=== PATIENT | male | born 1950 | race Caucasian/White ===

== ENCOUNTER → 2016-07-10 | Outpatient (CLI) | payer MEDICARE, OTHER ==
[~2016-07-10] MED LIST: AMBI10TA PO; BENI20TA26 PO; BENI40TA31 PO; BETH25TA PO; CELE200C PO; LORA1TAB PO; LORT5TAB PO; NEXI40CA PO; SUBO8MIS SL; SULF1TAB47 PO
[2016-07-10 11:14] LABS: HEMATOCRIT 53.4 % (39.0-51.0); MEAN CELL VOLUME 89.8 FL (80.0-100.0); MEAN CORPUSCULAR HEMOGLOBIN 29.8 PG (27.0-34.0); MEAN CORPUSCULAR HGB CONC 33.2 % (32.0-36.0); PLATELET COUNT 192 TH/MM3 (150-450); RED BLOOD COUNT 5.94 MIL/MM3 (4.50-5.90); RED CELL DISTRIBUTION WIDTH 11.7 % (11.6-17.2); REVIEW FLAG FINAL
== END ==
LOC: OLAB 10:47
PROVIDERS: ATTEND Urology
DX: E29.1 Testicular hypofunction (principal)
CPT/HCPCS: 36415; 84153; 84403; 85027

== ENCOUNTER → 2016-12-27 | Outpatient (CLI) | payer MEDICARE, OTHER ==
[2016-12-27 10:06] LABS: HEMATOCRIT 44.2 % (39.0-51.0); MEAN CELL VOLUME 90.3 FL (80.0-100.0); MEAN CORPUSCULAR HEMOGLOBIN 30.4 PG (27.0-34.0); MEAN CORPUSCULAR HGB CONC 33.7 % (32.0-36.0); PLATELET COUNT 196 TH/MM3 (150-450); RED CELL DISTRIBUTION WIDTH 11.8 % (11.6-17.2); REVIEW FLAG FINAL; WHITE BLOOD COUNT 5.8 TH/MM3 (4.0-11.0)
== END ==
LOC: OLAB 09:54 → EDSTATUS 13:31 → OLAB 13:34
PROVIDERS: ATTEND Urology
DX: E29.1 Testicular hypofunction (principal); Z12.5 Encounter for screening for malignant neoplasm of prostate
CPT/HCPCS: 36415; 84153; 84403; 85027

== ENCOUNTER → 2017-03-12 | Outpatient (CLI) | payer SELFPAY ==
[~2017-03-12] MED LIST changes: +ALEV220T14 PO; +BACT800T5 PO; +BENI20TA3 PO; +BETH25TA2 PO; +DOXE25CA2 PO; +HYDR-3516 PO; +LORA1TAB12 PO; +SUBO2MIS SL; +TYLE325T PO
[2017-03-12 15:05] LABS: AUTOMATED NEUTROPHIL # 5.1 TH/MM3 (1.8-7.7); BASOPHIL % 0.4 % (0.0-2.0); EOSINOPHIL # 0.2 TH/MM3 (0-0.4); EOSINOPHIL % 2.2 % (0.0-4.0); HEMATOCRIT 49.8 % (39.0-51.0); HEMO FLAGS DIFF FINAL; LYMPH % 31.1 % (9.0-44.0); LYMPHOCYTE # 2.7 TH/MM3 (1.0-4.8); MEAN CELL VOLUME 91.1 FL (80.0-100.0); MEAN CORPUSCULAR HEMOGLOBIN 30.4 PG (27.0-34.0); MEAN CORPUSCULAR HGB CONC 33.3 % (32.0-36.0); MONO % 8.4 % (0.0-8.0); NEUT % 57.9 % (16.0-70.0); PLATELET COUNT 238 TH/MM3 (150-450); RED BLOOD COUNT 5.47 MIL/MM3 (4.50-5.90); RED CELL DISTRIBUTION WIDTH 12.1 % (11.6-17.2); WHITE BLOOD COUNT 8.7 TH/MM3 (4.0-11.0)
== END ==
LOC: PHPRE 14:17
PROVIDERS: ATTEND Pain Medicine Interventional Pain Medicine
DX: Z01.812 Encounter for preprocedural laboratory examination (principal); Z96.89 Presence of other specified functional implants
CPT/HCPCS: 36415; 84132; 85025

== ENCOUNTER → 2017-03-28 | Day surgery (SDC) | payer MEDICARE, OTHER ==
[~2017-03-28] VITALS: Ht 172.7 cm; Wt 98.0 kg
[~2017-03-28] MED LIST changes: -BENI20TA26 PO; -BENI40TA31 PO; -BETH25TA PO; +BUPIVACAINE/EPINEPHRINE 0.25% PF 30 ML VIAL ONE; +BUPIVACAINE/EPINEPHRINE 0.5% PF 10 ML VIAL ONE; +CHLORHEXIDINE GLUCONATE 2 % 1 PACK (2 CLOTHS) TOPICAL PRN; +INSULIN HUMAN REGULAR 1,000 UNITS/10 ML VIAL SQ PRN; +LACTATED RINGER'S 1000 ML IV PRN; -LORA1TAB PO; -LORT5TAB PO; +METOPROLOL TARTRATE 25 MG TAB PO PRN; +MIDAZOLAM HCL 2 MG/2 ML VIAL ONE; +POVIDONE IODINE 5% (ANTISEPSIS KIT) 4 APPLICATIONS EACH NARE PRN; +PROPOFOL 200 MG/20 ML AMP IV ONE; +SODIUM CHLORID 0.9% 500 ML IV PRN; +SODIUM CHLORIDE 0.9% INJ 100 ML ONE; +SODIUM CHLORIDE 0.9% INJ 50 ML ONE; -SUBO8MIS SL; -SULF1TAB47 PO; +VANCOMYCIN 500 MG VIAL ONE; +VANCOMYCIN HCL 500 MG ON-CALL/NS 100 ML IV SCH; +ceFAZolin 1,000 MG/NS 100 ML IV SCH; +ceFAZolin INJ 1,000 MG VIAL ONE
[2017-03-28] MEDS: BUPIVACAINE HCL PF 0.25% 30 ML VIAL ONE ×2 (10:59→12:04)
--- NOTE | 2017-03-28 13:21 | MP ---
cc: HARISH VITAL M.D. DATE OF SURGERY 03/28/2017 DATE OF 1950 PROCEDURE Replacement of pulse generator for spinal cord stimulation. PREPROCEDURE DIAGNOSIS End of battery life for pulse generator. POSTPROCEDURE DIAGNOSIS End of battery life for pulse generator. PROCEDURE NOTE IV was started in the holding area. The patient was given IV antibiotics. Consent form was signed. The surgical site was marked. The patient was taken to the operating room, placed in the prone position. All pressure points were checked and padded. He was sedated by Anesthesia and monitored. His right low back and buttocks area was prepped with Chloraprep and draped with sterile drapes. Then the skin over the implanted pulse generator was infiltrated with 0.5% Marcaine containing epinephrine. An incision was made at the pulse generator was exteriorized using sharp and blunt dissection. Then that the pulse generator was disconnected from the stimulating electrodes by loosening Tom screws. Then a new Rysto dual channel rechargeable pulse generator was connected to the stimulating electrodes. Impedance was checked at the bedside and found to be appropriate in all of the electrodes. Then the incision was irrigated with antibiotic solution and the pulse generator was placed back in the subcutaneous pocket and closure took place with 2-0 Ethibond in the deep tissue, 3-0 Monocryl in the subcuticular tissue and 3-0 nylon on the skin. The incisions were covered with sterile adhesive dressings and the patient was taken to the recovery room with stable vital signs, neurologically intact. W. MD JILLIAN Donahue/LIBRA /12:43 PM /1:10 PM
[2017-03-28 13:35] VITALS: BP 105/71; PULSE 64; RESP 15; TEMP 98; O2SAT 96
== END | disposition home or self-care (01) ==
LOC: PHSDC 10:28
PROVIDERS: ATTEND Pain Medicine Interventional Pain Medicine
DX: M96.1 Postlaminectomy syndrome, not elsewhere classified (principal); I10 Essential (primary) hypertension; J44.9 Chronic obstructive pulmonary disease, unspecified; Z98.1 Arthrodesis status
CPT/HCPCS: 00300; 63685; C1767; J0690; J2250; J3010; J3370; J7120

== ENCOUNTER 2017-06-06 06:57 | Day surgery (SDC) | payer MEDICARE, OTHER ==
[~2017-06-06] VITALS: Ht 172.7 cm; Wt 100.0 kg
[~2017-06-06 06:57] MED LIST changes: -AMBI10TA PO; -BUPIVACAINE/EPINEPHRINE 0.25% PF 30 ML VIAL ONE; -BUPIVACAINE/EPINEPHRINE 0.5% PF 10 ML VIAL ONE; -CHLORHEXIDINE GLUCONATE 2 % 1 PACK (2 CLOTHS) TOPICAL PRN; -HYDR-3516 PO; -INSULIN HUMAN REGULAR 1,000 UNITS/10 ML VIAL SQ PRN; -LACTATED RINGER'S 1000 ML IV PRN; -LORA1TAB12 PO; -METOPROLOL TARTRATE 25 MG TAB PO PRN; -MIDAZOLAM HCL 2 MG/2 ML VIAL ONE; -POVIDONE IODINE 5% (ANTISEPSIS KIT) 4 APPLICATIONS EACH NARE PRN; -PROPOFOL 200 MG/20 ML AMP IV ONE; -SODIUM CHLORID 0.9% 500 ML IV PRN; -SODIUM CHLORIDE 0.9% INJ 100 ML ONE; -SODIUM CHLORIDE 0.9% INJ 50 ML ONE; -SUBO2MIS SL; -VANCOMYCIN 500 MG VIAL ONE; -VANCOMYCIN HCL 500 MG ON-CALL/NS 100 ML IV SCH; +WALKER WHEELS/F1 MIS; -ceFAZolin 1,000 MG/NS 100 ML IV SCH; -ceFAZolin INJ 1,000 MG VIAL ONE
[2017-06-06 07:10] VITALS: BP 126/84; PULSE 71; RESP 20; TEMP 97.7; O2SAT 91
[2017-06-06] MEDS ORDERED: IRBE150T17 (07:27)
[2017-06-06] MEDS ORDERED: LACTATED RINGER'S 1000 ML INJ 1,000 ML IV SCH (07:30)
[2017-06-06] MEDS ORDERED: DIAZEPAM 5 MG TAB PO SCH (07:30)
[2017-06-06] MEDS ORDERED: ALFU10TA2 PO (07:31)
[2017-06-06] MEDS ORDERED: BUTR20DI T-DERMAL (07:31)
[2017-06-06] MEDS ORDERED: FURO20TA PO (07:31)
[2017-06-06] MEDS ORDERED: PHEN37.54 PO (07:31)
[2017-06-06] MEDS ORDERED: SPIR25TA PO (07:31)
[2017-06-06 08:06] LABS: AUTOMATED NEUTROPHIL # 4.7 TH/MM3 (1.8-7.7); BASOPHIL # 0.1 TH/MM3 (0-0.2); BASOPHIL % 0.6 % (0.0-2.0); EOSINOPHIL # 0.2 TH/MM3 (0-0.4); EOSINOPHIL % 2.6 % (0.0-4.0); HEMATOCRIT 49.2 % (39.0-51.0); HEMO FLAGS DIFF FINAL; LYMPHOCYTE # 2.8 TH/MM3 (1.0-4.8); MEAN CELL VOLUME 90.4 FL (80.0-100.0); MEAN CORPUSCULAR HEMOGLOBIN 30.9 PG (27.0-34.0); MEAN CORPUSCULAR HGB CONC 34.2 % (32.0-36.0); MONO % 8.6 % (0.0-8.0); NEUT % 55.2 % (16.0-70.0); PLATELET COUNT 217 TH/MM3 (150-450); RED BLOOD COUNT 5.44 MIL/MM3 (4.50-5.90); RED CELL DISTRIBUTION WIDTH 12.4 % (11.6-17.2); WHITE BLOOD COUNT 8.6 TH/MM3 (4.0-11.0)
[2017-06-06 08:16] LABS: APTT (PATIENT) 27.7 SEC (24.3-30.1); PROTHROMBIN TIME - PATIENT 11.6 SEC (9.8-11.6)
[2017-06-06 08:21] LABS: BICARBONATE 28.2 MEQ/L (21.0-32.0); POTASSIUM 3.8 MEQ/L (3.5-5.1)
--- NOTE | 2017-06-06 10:20 | PD.RAD ---
Post Procedure Progress Note Pre Procedure Diagnosis: (1) Radicular pain of left lower extremity Post Procedure Diagnosis: (1) Radicular pain of left lower extremity Procedure Date: Jun 06, 2017 Supervising Radiologist: Nikita Leslie Estimated blood loss: None Anesthesia: Local Plan of Activity Patient to Unit: [facility] Patient Condition: Good Additional Comments: LP completed without difficulty. CT pending. Full report pending. See PACS Report for procedural detail/treatment Nikita Leslie MD Jun 06, 2017 10:20
[2017-06-06 11:35] VITALS: BP 103/68; PULSE 60; RESP 20; TEMP 97.8; O2SAT 93
--- NOTE | 2017-06-06 13:26 | RADRPT ---
EXAM DATE/TIME: 06/06/2017 11:09 [facility] COMPARISON: CT LUMBAR SPINE W/O CONTRAST, June 06, 2017, 11:24. INDICATIONS : Patient presents with spondylosis in need of lumbar myelogram for further evaluation. MEDICAL HISTORY : Spondylosis COPD CHF HTN GERD Osteoarthritis Bilat PE hx Low chronic back pain w/ radiating left hip pain Skin cancer SURGICAL HISTORY : Katalina Hernia repair Lumbar fusion Joint replacement Cervical fusion Retroperitoneal abscess ENCOUNTER: Initial ACUITY: 1 month PAIN SCORE: 8/10 LOCATION: Lower back pain with radiating left leg pain and numbness. LUMBAR PUNCTURE TIME: 10:03 hours FLUORO TIME: 1.0 minutes IMAGE SERIES: 0 CONTRAST: 20 cc Omnipaque (iohexol) 180 ACCESS LEVEL: L2-3 PROCEDURE : 1. Fluoroscopic guided lumbar puncture. 2. Lumbar myelogram. The risks, benefits and alternatives to the procedure were explained and verbal and written consent w as obtained. The site was prepped in sterile fashion. Full sterile technique was used, including ca p, mask, sterile gloves and gown and a large sterile sheet. Hand hygiene and 2% chlorhexidine and/or betadine/alcohol prep was utilized per protocol for cutaneous antisepsis. The skin and subcutaneous tissues were infiltrated with local anesthetic solution. With fluoroscopic guidance the lumbar thecal sac was punctured at level above and a diagnostic quanti ty of contrast is present in the subarachnoid space. Radiographs were obtained of the lumbar spine. T hese demonstrate significant narrowing of the thecal sac at the C3/4 level. The patient tolerated procedure well and there were no complications. CT scan is to be performed for further evaluation. CONCLUSION: Uncomplicated lumbar myelogram as above. CT scan is to be performed for further evaluation. Nikita Leslie MD on June 06, 2017 at 13:23 Board Certified Radiologist. This report was verified electronically.
--- NOTE | 2017-06-06 16:00 | RADRPT ---
EXAM DATE/TIME: 06/06/2017 11:24 [facility] COMPARISON: No previous studies available for comparison. INDICATIONS : Post myelo, stenosis RADIATION DOSE: 39.12 CTDIvol (mGy) MEDICAL HISTORY : Cardiovascular disease. Hypertension. Chronic obstructive pulmonary disease. SURGICAL HISTORY : Cholecystectomy. ENCOUNTER: Initial ACUITY: 1 day PAIN SCALE: 3/10 LOCATION: lumbar TECHNIQUE: Volumetric scanning of the lumbar spine was performed. Multiplanar reconstructions in the sagittal, coronal and oblique axial planes were performed. Using automated exposure control and adjustment of the mA and/or kV according to patient size, radiation dose was kept as low as reasonably achievable t o obtain optimal diagnostic quality images. DICOM format image data is available electronically for review and comparison. FINDINGS: VERTEBRAE: There is bilateral posterior fixation involving L4-L5 with intervening bone graft. Multiple scattered Schmorl's nodes throughout the lumbar spine. Sclerotic changes are linear in nature paralleling the L2 inferior endplate as well as the superior and inferior endplate of L3 and superior endplate of L4. Vertebral body heights are maintained. Anterior osteophytes are noted. A stimulator device is observ ed with the leads entering the central canal at T12-L1 and coursing cephalad. ALIGNMENT: There is a scoliotic curvature with concavity towards the patient's left centered at L2-L3. A mild re trolisthesis of L3 on L4. T12-L1: The thecal sac has a normal diameter. No evidence of disc bulge or protrusion. Mild ligamentum flavu m hypertrophy and bony hypertrophy of the facets. The neural foramina are patent bilaterally. L1-L2: The thecal sac has a normal diameter. No evidence of disc bulge or protrusion. Mild ligamentum flavu m hypertrophy and bony hypertrophy of the facets. The neural foramina are patent bilaterally. L2-L3: There is disc space narrowing with vacuum disc phenomena and broad-based disc osteophyte complex. The re is a left lateral bridging osteophyte. The posterior component of the disc bulge is eccentric to t he left. This narrows the left neural foramina without impingement. Right neural foramen is patent. M oderate ligament flavum hypertrophy and moderate bony hypertrophy of the facets. Mild narrowing of th e central canal which measures 8 mm in anterior to posterior dimension in contrast to 11 mm in the mo re cephalad level. L3-L4: There is disc space narrowing with vacuum disc phenomena and broad-based disc osteophyte complex. Thi s in combination with the facet arthropathy changes and retrolisthesis generate significant central c anal stenosis. There is essentially no contrast opacified channel within the intrathecal space. Bilat eral neural foraminal narrowing most pronounced on the left. L4-L5: Posterior fixation and fusion at this level. Right hemilaminectomy changes. The central canal is munson nt. Neural foramina are patent. L5-S1: There is disc space narrowing and vacuum disc phenomena. There is a broad-based disc osteophyte compl ex eccentric to the right.. This in combination with prominent bony hypertrophy and moderate ligament flavum hypertrophy of the facets totally effaces the right lateral recess. Left lateral recess is pa tent. There is narrowing of the central canal in a medial to lateral dimension. This is moderate in n ature. There is narrowing of the right neural foramen and to a lesser degree left neural foramen. CONCLUSION: 1. Posterior fixation and laminectomy at L4-L5. The central canal is patent at this level. 2. Severe central canal stenosis at L3-L4 delay combination of a retrolisthesis, disc osteophyte comp nallely, and facet arthropathy changes. 3. Degenerative changes at L5-S1 causing mild central canal stenosis as well as total effacement of t he right lateral recess. Erich Ortiz Jr., MD on June 06, 2017 at 15:45 Board Certified Radiologist. This report was verified electronically.
[2017-06-10] MEDS ORDERED: DULO1CAP2 PO (14:01)
[2017-06-10] MEDS ORDERED: CYCL10TA PO (14:58)
[2017-06-10] MEDS ORDERED: HYDR-3366 PO (14:58)
== END 2017-06-06 14:00 | disposition home or self-care (01) ==
LOC: HROP 06:57 → HRIP 06:58 → HROP 14:00
PROVIDERS: ATTEND Neurological Surgery
DX: M79.662 Pain in left lower leg (principal); M54.5 Low back pain; M51.36 Other intervertebral disc degeneration, lumbar region; M43.16 Spondylolisthesis, lumbar region; J44.9 Chronic obstructive pulmonary disease, unspecified; I11.0 Hypertensive heart disease with heart failure; I50.9 Heart failure, unspecified; K21.9 Gastro-esophageal reflux disease without esophagitis; Z98.1 Arthrodesis status; Z86.711 Personal history of pulmonary embolism
CPT/HCPCS: 62304; 72131; 80048; 85025; 85610; 85730; J7120

== ENCOUNTER → 2017-06-11 | Outpatient (CLI) | payer MEDICARE, OTHER ==
[~2017-06-11] MED LIST changes: +ALFU10TA2 PO; -BACT800T5 PO; -BENI20TA3 PO; -BETH25TA2 PO; +BUTR20DI T-DERMAL; +CYCL10TA PO; +DULO1CAP2 PO; +FURO20TA PO; +HYDR-3366 PO; +IRBE150T17; +PHEN37.54 PO; +SPIR25TA PO
[2017-06-11 13:50] LABS: BLOOD, URINE NEG (NEG); COMMENT (UR) CULT NOT INDICATED; CULTURE IF INDICATED CULT NOT INDICATED; GLUCOSE,URINE NEG (NEG); KETONE, URINE NEG (NEG); MUCUS URINE FEW /lpf (OCC); NITRITE,URINE NEG (NEG); URINE COLOR LIGHT-YELLOW (YELLW/STRAW)
[2017-06-11 13:59] LABS: AUTOMATED NEUTROPHIL # 5.1 TH/MM3 (1.8-7.7); BASOPHIL # 0.1 TH/MM3 (0-0.2); BASOPHIL % 0.6 % (0.0-2.0); EOSINOPHIL # 0.2 TH/MM3 (0-0.4); EOSINOPHIL % 2.5 % (0.0-4.0); HEMATOCRIT 49.7 % (39.0-51.0); HEMO FLAGS DIFF FINAL; LYMPHOCYTE # 2.4 TH/MM3 (1.0-4.8); MEAN CELL VOLUME 90.9 FL (80.0-100.0); MEAN CORPUSCULAR HGB CONC 34.1 % (32.0-36.0); MONO % 8.9 % (0.0-8.0); PLATELET COUNT 224 TH/MM3 (150-450); RED BLOOD COUNT 5.47 MIL/MM3 (4.50-5.90); RED CELL DISTRIBUTION WIDTH 12.2 % (11.6-17.2); WHITE BLOOD COUNT 8.4 TH/MM3 (4.0-11.0)
[2017-06-11 14:09] LABS: APTT (PATIENT) 27.8 SEC (24.3-30.1); INTERNATIONAL NORMALIZED RATIO 1.1 RATIO; PROTHROMBIN TIME - PATIENT 10.7 SEC (9.8-11.6)
[2017-06-11 14:18] LABS: ALT (GPT) 42 U/L (12-78); ANION GAP 6 MEQ/L (5-15); AST (GOT) 19 U/L (15-37); BLOOD UREA NITROGEN 21 MG/DL (7-18); CHLORIDE 101 MEQ/L (98-107); GLOMERULAR FILTRATION RATE 54 ML/MIN (>89); GLUCOSE,FASTING 93 MG/DL (74-99); POTASSIUM 4.7 MEQ/L (3.5-5.1); SODIUM (NA) 137 MEQ/L (136-145)
[2017-06-11 14:20] LABS: ALKALINE PHOSPHATASE 112 U/L (45-117); TOTAL BILIRUBIN ADULT 0.4 MG/DL (0.2-1.0)
--- NOTE | 2017-06-11 14:42 | RADRPT ---
EXAM DATE/TIME: 06/11/2017 14:05 [facility] COMPARISON: No previous studies available for comparison. INDICATIONS : Evaluate for pneumonia, pneumothorax or communicable disease. Pre op for back surgery 06-13-17 MEDICAL HISTORY : Chronic obstructive pulmonary disease. SURGICAL HISTORY : Cholecystectomy. back stimulator ENCOUNTER: Initial ACUITY: 1 day PAIN SCORE: 0/10 LOCATION: Bilateral chest FINDINGS: Marked hyperinflation. The heart and pulmonary vascularity are normal. Mild degenerative changes tho racic spine. Spinal silhouette are noted. CONCLUSION: Spinal stimulator, marked hyperinflation, otherwise negative.. Stevie Leslie MD FACR on June 11, 2017 at 14:40 Board Certified Radiologist. This report was verified electronically.
== END ==
LOC: CPRE 12:54
PROVIDERS: ATTEND Neurological Surgery
DX: Z01.811 Encounter for preprocedural respiratory examination (principal); Z01.812 Encounter for preprocedural laboratory examination; Z01.818 Encounter for other preprocedural examination; Z79.01 Long term (current) use of anticoagulants; M43.16 Spondylolisthesis, lumbar region; M48.062 Spinal stenosis, lumbar region with neurogenic claudication; M51.36 Other intervertebral disc degeneration, lumbar region; M54.10 Radiculopathy, site unspecified
CPT/HCPCS: 36415; 71020; 80053; 81001; 85025; 85610; 85730; 86850; 86900; 86901; 86920

== ENCOUNTER 2017-06-13 06:10 | Inpatient (IN) | payer MEDICARE, OTHER ==
[~2017-06-13] VITALS: Ht 172.7 cm; Wt 63.4 kg
[~2017-06-13 06:10] MED LIST changes: -ALEV220T14 PO
[2017-06-13] MEDS ORDERED: BUPIVACAINE/EPINEPHRINE 0.5% PF 30 ML VIAL ONE (06:53)
[2017-06-13] MEDS ORDERED: VANCOMYCIN HCL 1000 MG VIAL ONE ×2 (06:53→06:54)
[2017-06-13] MEDS ORDERED: GELFOAM SIZE 100 ONE (06:53)
[2017-06-13] MEDS ORDERED: THROMBIN (TOPICAL) 5,000 UNIT VIAL ONE (06:53)
[2017-06-13] MEDS ORDERED: CHLORHEXIDINE GLUCONATE 2 % 1 PACK (2 CLOTHS) TOPICAL PRN (07:00)
[2017-06-13] MEDS ORDERED: SODIUM CHLORID 0.9% 500 ML IV PRN (07:00)
[2017-06-13] MEDS: SODIUM CHLOR 0.9% 1000 ML INJ 1,000 ML IV SCH (07:00)
[2017-06-13] MEDS ORDERED: METOPROLOL TARTRATE 25 MG TAB PO PRN (07:00)
[2017-06-13] MEDS ORDERED: POVIDONE IODINE 5% (ANTISEPSIS KIT) 4 APPLICATIONS EACH NARE PRN (07:00)
[2017-06-13] MEDS ORDERED: LACTATED RINGER'S 1000 ML IV PRN (07:00)
[2017-06-13] MEDS ORDERED: INSULIN HUMAN REGULAR 1,000 UNITS/10 ML VIAL SQ PRN (07:00)
[2017-06-13] MEDS ORDERED: VANCOMYCIN HCL 1000 MG ON-CALL/NS 250 ML IV SCH ×2 (07:00)
[2017-06-13] MEDS ORDERED: PROPOFOL 500 MG/50 ML INJ 100 ML ONE (07:58)
[2017-06-13] MEDS ORDERED: MIDAZOLAM HCL 2 MG/2 ML VIAL ONE (08:06)
[2017-06-13] MEDS ORDERED: DOPamine INJ PREMIX 500 ML ONE (09:23)
[2017-06-13] MEDS ORDERED: VASOPRESSIN 20 UNITS/ML VIAL (IVTITR) ONE (09:33)
[2017-06-13 09:53] LABS: BLOOD GAS BASE EXCESS 1.1 mmol/L (-2-2); BLOOD GAS CARBOXYHEMOGLOBIN 0.6 % (0-4); BLOOD GAS HCO3 26 mmol/L (22-26); BLOOD GAS METHEMOGLOBIN 1.5 % (0-2); BLOOD GAS O2 HGB SATURATION 96 % (90-100); BLOOD GAS OXYGEN CONTENT 20.5 Vol % (12.0-20.0); BLOOD GAS PCO2 47 mmHg (38-42); BLOOD GAS PO2 130 mmHg (61-120); BLOOD GAS TOTAL HGB 15.1 G/DL (12.0-16.0); CRITICAL VALUE NO; FIO2 50 %; OXYGEN DEVICE OPERATING ROOM; TEMP CORR TO 98.6
[2017-06-13] MEDS ORDERED: CALCIUM CHLORIDE 10% SOLN 1 GRAM/10 ML SYR ONE (09:53)
[2017-06-13 09:54] LABS: STAT YES
[2017-06-13] MEDS ORDERED: ALUMINUM/MAGNESIUM/SIMETH 30 ML CUP PO PRN (13:00)
[2017-06-13] MEDS ORDERED: RESP: ALBUTEROL 2.5 MG/3 ML NEB (PRN) NEB (13:00)
[2017-06-13] MEDS ORDERED: NALOXONE HCL 0.4 MG/ML AMP IV PUSH PRN ×2 (13:00)
[2017-06-13] MEDS ORDERED: ONDANSETRON HCL 4 MG/2 ML VIAL IV PUSH PRN (13:00)
[2017-06-13] MEDS ORDERED: POTASSIUM CHLOR 20 MEQ PREMIX 100 ML IV PRN (13:00)
[2017-06-13] MEDS ORDERED: MAGNESIUM SULFATE INJ 2 GM in SODIUM CHLORIDE 0.9% INJ 100 ML IV PRN (13:00)
[2017-06-13] MEDS ORDERED: MENTHOL LOZENGE BUCCAL PRN (13:00)
[2017-06-13] MEDS ORDERED: diphenhydrAMINE HCL 50 MG/ML VIAL IV PUSH PRN (13:00)
[2017-06-13] MEDS ORDERED: SODIUM CHLORIDE 0.9% FLUSH 10 ML FLUSH IV FLUSH PRN (13:00)
[2017-06-13] MEDS ORDERED: diphenhydrAMINE HCL 25 MG CAP PO PRN (13:00)
[2017-06-13] MEDS ORDERED: CALCIUM GLUCONATE INJ 1 GM in SODIUM CHLORIDE 0.9% INJ 100 ML IV PRN (13:00)
[2017-06-13] MEDS ORDERED: ACETAMINOPHEN 325 MG TAB PO PRN (13:00)
[2017-06-13] MEDS ORDERED: cloNIDine HCL 0.1 MG TAB PO PRN (13:00)
[2017-06-13] MEDS ORDERED: PROMETHAZINE INJ 25 MG/ML VIAL IM PRN (13:00)
--- NOTE | 2017-06-13 13:02 | RADRPT ---
EXAM DATE/TIME: 06/13/2017 08:47 [facility] COMPARISON: No previous studies available for comparison. INDICATIONS : Post-op remove hardware from L4-L5. L3-L4 posterior lumbar fusion. MEDICAL HISTORY : None. SURGICAL HISTORY : Fusion, lumbar. Cholecystectomy. Spinal cord stimulator. ENCOUNTER: Initial ACUITY: 1 day PAIN SCORE: Non-responsive. LOCATION: Lumbar spine. CONCLUSION: Fluoroscopic images during placement of screws and rods at L3-4 and L4-5 levels. Intervertebral disc devices are seen. Jameson Mendez MD on June 13, 2017 at 13:00 Board Certified Radiologist. This report was verified electronically.
--- NOTE | 2017-06-13 13:10 | PD.OP ---
cc: Shira Diaz MD; Maurice Burgess MD Operative Report Date of Surgery: Jun 13, 2017 Preoperative Diagnosis: Intractable low back pain with severe neurogenic claudication; severe L3-4 spinal stenosis with disc degeneration and facet hypertrophy; history of L4-5 interbody fusion with pedicle screw fixation Postoperative Diagnosis: Same Procedure: Lumbar L3-4 transforaminal interbody fusion; L3-4 decompressive laminectomies; L3-4 pedicle screw fixation; removal of left L4-5 pedicle screws; L3-4 interbody cage placement; microsurgical technique Anesthesia: Gen. endotracheal by Theron Cárdenas Surgeon: Justyn Cantu M.D. Mixing Tank Operator(s): Jessica Aguilar Operation and Findings: Following initiation of general endotracheal anesthesia, the patient had a Swain catheter placed along with sequential compression devices. A gram of vancomycin was administered intravenously and he was turned in a prone position on a Arthur frame, on a Kamron table, and all pressure points adequately padded. The lumbosacral region was then prepped with Chloraprep and sterilely draped with Ioban along the usual sterile draping. A midline skin incision at the previous site was then made extending from the L3-5 levels after infiltrating the skin with 0.5% Marcaine with epinephrine solution extending down through the fascia. The muscle fibers were split using avascular fatty plane and detached from the underlying facets, transverse process and lateral portion of lamina on the left side and a self-retaining retractor used for exposure. Intraoperative fluoroscopy was also used for level of confirmation along with microscope magnification for further dissection. There was significant facet and ligamentum flavum hypertrophy noted at the Left L3-4 level with L4-5 pedicle screws evident. The left L4-5 pedicle screws were removed along with the eric and the solid fusion was noted at this level. Left L3-4 hypertrophied facet was resected with a drill bit along with the lamina and there was severe foraminal and lateral recess stenosis from hypertrophied ligamentum flavum and facet which were decompressed bilaterally through the unilateral approach. There was significant disc height collapse along with disc protrusion also leading to the foraminal stenosis. Epidural hemostasis was achieved with bipolar cautery and Gelfoam with thrombin. Subsequently entered into the disc space at the L3-4 level with a #15 blade and daxa were used for discectomy. I then placed PEEK cage packed with local autograft bone and more local autograft bone was packed adjacent to the cage in interspace for added interbody fusion. With placement of the cage, I was able to distract the interspace and opened up the foramen further bilaterally. Subsequently in order to facilitate the fusion and provide stabilization, pedicle screw fixation was undertaken using [place] spine screws on entry point at the left L3 level at the junction of the transverse process and facet in the previous L4 level screw with a larger diameter. Subsequently using AP and lateral fluoroscopy tap and screw placement. The screws were then connected with a eric and locked in place with caps. The construct appeared very secure at this point. The area was then copiously irrigated with Vancomycin solution and powder. The retractors were removed and the bipolar cautery used for hemostasis. The muscle fascia was then approximated using 2-0 Vicryl interrupted stitches and then 3-0 Vicryl subcuticular stitches also placed in interrupted fashion. The final skin closure was completed with [place]. A sterile dressing was then applied. The patient then turned in supine position, extubated and taken to recovery room. There were no intraoperative complications. All sponge and needle counts were correct at the end of procedure. Estimated blood loss about 150 ml. Justyn Cantu MD Jun 13, 2017 13:10
[2017-06-13] MEDS: NS + KCL 20 MEQ INJ 1,000 ML IV SCH (13:30)
[2017-06-13 13:55] LABS: BASOPHIL % 0.2 % (0.0-2.0); EOSINOPHIL % 0.2 % (0.0-4.0); HEMATOCRIT 40.4 % (39.0-51.0); HEMO FLAGS DIFF FINAL; LYMPH % 5.6 % (9.0-44.0); LYMPHOCYTE # 0.6 TH/MM3 (1.0-4.8); MEAN CELL VOLUME 89.5 FL (80.0-100.0); MEAN CORPUSCULAR HEMOGLOBIN 31.5 PG (27.0-34.0); MEAN CORPUSCULAR HGB CONC 35.2 % (32.0-36.0); MONO % 3.9 % (0.0-8.0); NEUT % 90.1 % (16.0-70.0); PLATELET COUNT 196 TH/MM3 (150-450); RED BLOOD COUNT 4.51 MIL/MM3 (4.50-5.90); RED CELL DISTRIBUTION WIDTH 12.1 % (11.6-17.2)
[2017-06-13] MEDS ORDERED: PCA - TOTAL MG DILAUDID DELIVERED PER SHIFT OTHER SCH (14:00)
[2017-06-13] MEDS: PCA - TOTAL MG MORPHINE DELIVERED PER SHIFT SCH ×2 (14:00→22:00)
[2017-06-13] MEDS ORDERED: BUPRENORPHINE TOPICAL SCH (14:15)
[2017-06-13] MEDS ORDERED: DO NOT ADM ANY ANTICOAGULANT DRUGS PRN (14:30)
[2017-06-13] MEDS: MORPHINE SULFATE 30 MG/30 ML PCA IV SCH ×2 (14:31→19:42)
--- NOTE | 2017-06-13 14:49 | PD.CONS ---
[facility] Consult Requested By Reason for Consult medical management Primary Care Physician Maurice Burgess MD Diagnoses: History of Present Illness patient is a 66 y/o male with history of chronic back pain and hypertension who underwent L3-4 laminectomy today. at the time of my evaluation he was resting comfortably with no acute distress. pain was minimal to mild. he denies any chest pain, sob, nausea,dizziness. d/w the RN at the bedside with no acute issues. Review of Systems Constitutional: DENIES: Fever, Weight loss, Chills, Night Sweats Eyes: DENIES: Blurred vision, Diplopia, Vision loss, Double Vision Ears, nose, mouth, throat: DENIES: Tinnitus, Vertigo, Throat pain, Epistaxis Respiratory: DENIES: Apneas, Cough, Snoring, Wheezing, Hemoptysis, Sputum production, Shortness of breath Cardiovascular: DENIES: Chest pain, Palpitations, Syncope, Dyspnea on Exertion , PND, Lower Extremity Edema, Orthopnea, Claudication Gastrointestinal: DENIES: Abdominal pain, Black stools, Bloody stools, Constipation, Diarrhea, Nausea, Vomiting, Difficulty Swallowing, Anorexia Genitourinary: DENIES: Urinary frequency, Urgency, Hematuria, Dysuria Musculoskeletal: COMPLAINS OF: Back pain, DENIES: Joint pain, Muscle aches, Stiffness, Joint Swelling Integumentary: DENIES: Rash Neurologic: DENIES: Abnormal gait, Headache, Localized weakness, Paresthesias, Seizures, Speech Problems, Tremor, Poor Balance Psychiatric: DENIES: Anxiety, Confusion, Mood changes, Depression, Hallucinations, Agitation, Suicidal Ideation, Homicidal Ideation, Delusions Past Family Social History Allergies: Coded Allergies: MRI PRECAUTION (Verified Allergy, Severe, PT HAS IMPLANTED NERVE STIMULATOR ([employer]TRON[employer]), 06/13/17) hydromorphone (Unverified Allergy, Severe, 06/13/17) stomach cramping meperidine (Unverified Allergy, Unknown, 06/13/17) causes abd cramping in iv form prochlorperazine (Unverified Adverse Reaction, Severe, AGITATION, 06/13/17) Past Medical History chronic back pain . hypertension. Past Surgical History back surgery. Reported Medications irbesartan/ hctz / nexium/ flexeril/ aldactone. Active Ordered Medications Current Medications Lactated Ringer's 1,000 ml @ 30 mls/hr Q24H PRN IV SEE LABEL COMMENTS Last administered on 06/13/17 06:55; Start 06/13/17 at 07:00; Stop 06/16/17 at 06: 59 Sodium Chloride 500 ml @ 30 mls/hr [id number] PRN IV SEE LABEL COMMENTS; Start at 07:00; Stop 06/16/17 at 06:59 Metoprolol Tartrate (Lopressor) 25 mg CEMENT TESTER ASSISTANT PRN PO SEE LABEL COMMENTS; Start 06/13/17 at 07:00; Stop 06/16/17 at 06:59 Povidone Iodine (Betadine 5% Antisepsis Kit) 1 applic CEMENT TESTER ASSISTANT PRN EACH NARE SEE LABEL COMMENTS Last administered on 06/13/17 07:33; Start 06/13/17 at 07:00 ; Stop 06/16/17 at 06:59 Chlorhexidine Gluconate (Chlorhexidine 2% Cloth) 3 pack CEMENT TESTER ASSISTANT PRN TOPICAL SEE LABEL COMMENTS Last administered on 06/13/17 06:45; Start 06/13/17 at 07:00 ; Stop 06/16/17 at 06:59 Insulin Human Regular (NovoLIN R INJ) See Protocol Table ... CEMENT TESTER ASSISTANT PRN SQ SEE PROTOCOL TABLE; Start 06/13/17 at 07:00; Stop 06/16/17 at 06:59 Vancomycin HCl 1000 mg/Sodium Chloride 250 ml @ 250 mls/hr CEMENT TESTER ASSISTANT IV ; Start 06/13/17 at 07:00; Stop 06/16/17 at 13:00 Sodium Chloride 1,000 ml @ 30 mls/hr Q24H IV ; Start 06/13/17 at 07:00 Vancomycin HCl (Vancomycin Inj) 1,000 mg STK-MED ONCE .ROUTE Last administered on 06/13/17 09:30; Start 06/13/17 at 06:53; Stop 06/13/17 at 06:54; Status DC Thrombin (Thrombin Top Soln) 10,000 units STK-MED ONCE .ROUTE Last administered on 06/13/17 09:30; Start 06/13/17 at 06:53; Stop 06/13/17 at 06:54 ; Status DC Bupivacaine HCl/ Epinephrine Bitart (Sensorcaine-Epinephrine Pf 0.5% Inj) 30 ml STK-MED ONCE .ROUTE Last administered on 06/13/17 09:16; Start 06/13/17 at 06: 53; Stop 06/13/17 at 06:54; Status DC Gelatin (Gelfoam 100 Top) 1 foam STK-MED ONCE .ROUTE Last administered on 09:30; Start 06/13/17 at 06:53; Stop 06/13/17 at 06:54; Status DC Vancomycin HCl (Vancomycin Inj) 1,000 mg STK-MED ONCE .ROUTE Last administered on 06/13/17 12:13; Start 06/13/17 at 06:54; Stop 06/13/17 at 06:55; Status DC Propofol 100 ml @ As Directed STK-MED ONCE .ROUTE ; Start 06/13/17 at 07:58; Stop 06/13/17 at 07:59; Status DC Midazolam HCl (Versed Inj) 2 mg STK-MED ONCE .ROUTE ; Start 06/13/17 at 08:06; Stop 06/13/17 at 08:07; Status DC Dopamine HCl/ Dextrose 500 ml @ As Directed STK-MED ONCE .ROUTE ; Start at 09:23; Stop 06/13/17 at 09:24; Status DC Vasopressin (Pitressin Inj) 20 units STK-MED ONCE .ROUTE ; Start 06/13/17 at 09: 33; Stop 06/13/17 at 09:34; Status DC Calcium Chloride (Calcium Chloride Inj) 1 gm STK-MED ONCE .ROUTE ; Start at 09:53; Stop 06/13/17 at 09:54; Status DC Cyclobenzaprine HCl (Flexeril) 10 mg TID PO ; Start 06/13/17 at 13:00 Doxepin HCl (SINEquan) 50 mg HS PRN PO INSOMNIA; Start 06/13/17 at 13:00 Furosemide (Lasix) 20 mg BID PO ; Start 06/13/17 at 21:00 Spironolactone (Aldactone) 25 mg DAILY PO ; Start 06/14/17 at 09:00 Tamsulosin HCl (Flomax) 0.4 mg DAILY PO ; Start 06/14/17 at 09:00 Patient Own Medication PT OWN MED: (Buprenorphine Patch 168... Q7D TOPICAL ; Start 06/13/17 at 14:15; Status Future Hold Pantoprazole Sodium (Protonix) 40 mg DAILY PO ; Start 06/14/17 at 09:00 Non-Formulary Medication 37.5 mg DAILY PO ; Start 06/14/17 at 09:00; Stop at 09:00; Status DC Naloxone HCl (Narcan Inj) 0.4 mg UNSCH PRN IV PUSH RESPIRATORY RATE LESS THAN 10; Start 06/13/17 at 13:00 Diphenhydramine HCl (Benadryl) 25 mg Q6H PRN PO ITCHING; Start 06/13/17 at 13: 00 LANDING MAN Dosage Infused (Pha) 1 Q8HR OTHER ; Start 06/13/17 at 14:00; Stop 06/13/17 at 14:10; Status DC Naloxone HCl (Narcan Inj) 0.4 mg UNSCH PRN IV PUSH RESPIRATORY RATE LESS THAN 10; Start 06/13/17 at 13:00; Stop 06/13/17 at 14:10; Status DC Diphenhydramine HCl (Benadryl Inj) 25 mg Q6H PRN IV PUSH ITCHING; Start at 13:00 Morphine Sulfate (Morphine 1 Mg/ ml LANDING MAN) 30 mg UNSCH IV Last administered on t 14:31; Start 06/13/17 at 13:00 LANDING MAN Dosage Infused (Pha) 1 Q8HR .XX ; Start 06/13/17 at 14:00 Potassium Chloride/Sodium Chloride 1,000 ml @ 80 mls/hr [id number] IV Last administered on 06/13/17t 13:30; Start 06/13/17 at 12:53 Sodium Chloride (NS Flush) 2 ml UNSCH PRN IV FLUSH FLUSH AFTER USING IV ACCESS ; Start 06/13/17 at 13:00 Sodium Chloride (NS Flush) 2 ml BID IV FLUSH ; Start 06/13/17 at 21:00 Cefazolin Sodium 1000 mg/Sodium Chloride 100 ml @ 200 mls/hr Q8H IV ; Start at 15:00; Stop 06/14/17 at 07:29 Docusate Sodium (Colace) 100 mg BID PO ; Start 06/13/17 at 21:00 Magnesium Hydroxide (Milk Of Magnesia Liq) 30 ml DAILY PRN PO Mild-moderate constipation; Start 06/13/17 at 13:00 Al Hydrox/Mg Hydrox/Simethicone (Mag-Al Plus Susp Liq) 30 ml Q6H PRN PO DYSPEPSIA; Start 06/13/17 at 13:00 Ondansetron HCl (Zofran Inj) 4 mg Q6H PRN IV PUSH NAUSEA OR VOMITING; Start at 13:00 Promethazine HCl (Phenergan Inj) 25 mg Q4H PRN IM NAUSEA OR VOMITING; Start at 13:00 Calcium Gluconate 1 gm/Sodium Chloride 110 ml @ 110 mls/hr UNSCH PRN IV SEE LABEL COMMENTS; Start 06/13/17 at 13:00 Potassium Chloride 100 ml @ 50 mls/hr UNSCH PRN IV POTASSIUM LESS THAN 4; Start 06/13/17 at 13:00 Magnesium Sulfate 2 gm/Sodium Chloride 104 ml @ 100 mls/hr UNSCH PRN IV MAGNESIUM LESS THAN 2; Start 06/13/17 at 13:00 Acetaminophen/ Hydrocodone Bitart ([place] 10-325 Mg) 1 tab Q4H PRN PO PAIN SCALE 1 TO 5; Start 06/13/17 at 13:00 Acetaminophen/ Hydrocodone Bitart ([place] 10-325 Mg) 2 tab Q4H PRN PO PAIN SCALE 6 TO 10; Start 06/13/17 at 13:00 Clonidine (Catapres) 0.1 mg Q6H PRN PO SYS BP GREATER THAN 170 MMHG; Start 06/13/17 at 13:00 Acetaminophen (Tylenol) 650 mg Q4H PRN PO TEMPERATURE > 101.5 F; Start at 13:00 Menthol ([place] Rober) 1 lozenge UNSCH PRN BUCCAL SORE THROAT; Start 06/13/17 at 13:00 Albuterol Sulfate (Albuterol Neb) 2.5 mg Q4HR NEB PRN NEB WHEEZING; Start 06/13 at 13:00 Lactulose (Lactulose Liq) 30 ml DAILY PO ; Start 06/14/17 at 09:00 Hydrochlorothiazide (Microzide) 12.5 mg DAILY PO ; Start 06/14/17 at 09:00 Duloxetine HCl (Cymbalta Dr) 30 mg DAILY PO ; Start 06/14/17 at 09:00 Miscellaneous Information ALL NURSING DEPARTME... UNSCH PRN .XX SEE LABEL COMMENTS; Start 06/13/17 at 14:30; Stop 06/14/17 at 14:29 Social History no smoking or drinking. Physical Exam Vital Signs Vital Signs Date Time Temp Pulse Resp B/P (MAP) Pulse Ox O2 Delivery O2 Flow Rate FiO2 06/13/17 14:31 15 06/13/17 12:50 97.4 99 16 111/56 (74) 94 Nasal Cannula 4 06/13/17 06:50 98.4 76 18 107/67 (80) 96 Physical Exam GENERAL: This is a well-nourished, well-developed patient, in no apparent distress. SKIN: No rashes, ecchymoses or lesions. Cool and dry. HEAD: Atraumatic. Normocephalic. No temporal or scalp tenderness. EYES: Pupils equal round and reactive. Extraocular motions intact. No scleral icterus. No injection or drainage. ENT: Nose without bleeding, purulent drainage or septal hematoma. Throat without erythema, tonsillar hypertrophy or exudate. Uvula midline. Airway patent. NECK: Trachea midline. No JVD or lymphadenopathy. Supple, nontender, no meningeal signs. CARDIOVASCULAR: Regular rate and rhythm without murmurs, gallops, or rubs. RESPIRATORY: Clear to auscultation. Breath sounds equal bilaterally. No wheezes , rales, or rhonchi. GASTROINTESTINAL: Abdomen soft, non-tender, nondistended. No hepato-splenomegaly , or palpable masses. No guarding. MUSCULOSKELETAL: Extremities without clubbing, cyanosis, or edema. No joint tenderness, effusion, or edema noted. No calf tenderness. Negative Homans sign bilaterally. NEUROLOGICAL: Awake and alert. Cranial nerves II through XII intact. Motor and sensory grossly within normal limits. Five out of 5 muscle strength in all muscle groups. Normal speech. Laboratory Laboratory Tests Test 06/13/17 09:45 06/13/17 13:40 Blood Gas Puncture Site DRAWN IN OR Blood Gas Patient Temperature 98.6 Blood Gas HCO3 26 Blood Gas Base Excess 1.1 Blood Gas Oxygen Saturation 96 Arterial Blood pH 7.36 Arterial Blood Partial Pressure CO2 47 Arterial Blood Partial Pressure O2 130 Arterial Blood Oxygen Content 20.5 Arterial Blood Carboxyhemoglobin 0.6 Arterial Blood Methemoglobin 1.5 Blood Gas Hemoglobin 15.1 Oxygen Delivery Device OPERATING ROOM Blood Gas Inspired Oxygen 50 White Blood Count 10.0 Red Blood Count 4.51 Hemoglobin 14.2 Hematocrit 40.4 Mean Corpuscular Volume 89.5 Mean Corpuscular Hemoglobin 31.5 Mean Corpuscular Hemoglobin Concent 35.2 Red Cell Distribution Width 12.1 Platelet Count 196 Mean Platelet Volume 8.2 Neutrophils (%) (Auto) 90.1 Lymphocytes (%) (Auto) 5.6 Monocytes (%) (Auto) 3.9 Eosinophils (%) (Auto) 0.2 Basophils (%) (Auto) 0.2 Neutrophils # (Auto) 9.0 Lymphocytes # (Auto) 0.6 Monocytes # (Auto) 0.4 Eosinophils # (Auto) 0.0 Basophils # (Auto) 0.0 CBC Comment DIFF FINAL Differential Comment Result Diagram: 06/13/17 1340 Imaging Last Impressions Lumbar Spine X-Ray 06/13/17 0000 Signed Impressions: Service Date/Time: June 08:47 - CONCLUSION: Fluoroscopic images during placement of screws and rods at L3-4 and L4-5 levels. Intervertebral disc devices are seen. Jameson Mendez MD Assessment and Plan Assessment and Plan A/P - chronic low back pain- s/p L3-4 Laminectomy continue with pain control and rehab efforts- management per neurosurgery. -hypertension; on HCTZ- will monitor and adjust the regimen as needed. -DVT prophylaxis; per neurosurgery. thank you for the consult. Discussed Condition With the patient and RN. Avila Lam MD Jun 13, 2017 14:49
[2017-06-13] MEDS ORDERED: HYDR-3366 PO ×2 (15:16→16:50)
[2017-06-13 16:45] VITALS: BP 124/66; PULSE 93; RESP 18; TEMP 97.2; O2SAT 96
[2017-06-13] MEDS: CYCLOBENZAPRINE HCL 10 MG TAB PO SCH (17:22)
[2017-06-13] MEDS: ACETAMINOPHEN/HYDROcodone 325 MG/10 MG TAB PO PRN ×2 (17:23→22:41)
[2017-06-13] MEDS: DOCUSATE SODIUM 100 MG CAP PO SCH (19:41)
[2017-06-13] MEDS: FUROSEMIDE 20 MG TAB PO SCH (19:41)
[2017-06-13 19:42] LABS: BICARBONATE 25.4 MEQ/L (21.0-32.0); MAGNESIUM 1.8 MG/DL (1.5-2.5); POTASSIUM 4.2 MEQ/L (3.5-5.1)
[2017-06-13 20:00] VITALS: BP 112/76; PULSE 99; RESP 17; TEMP 97.5; O2SAT 95
[2017-06-13] MEDS: SODIUM CHLORIDE 0.9% FLUSH 10 ML FLUSH IV FLUSH SCH (21:00)
[2017-06-14] VITALS (7 sets, daily range): BP systolic 107–133; BP diastolic 58–75; PULSE 74–93; RESP 18–20; TEMP 96.1–98.9; O2SAT 92–98
[2017-06-14] MEDS: DOXEPIN HCL 25 MG CAP PO PRN (00:05)
[2017-06-14] MEDS: NS + KCL 20 MEQ INJ 1,000 ML IV SCH ×3 (02:53→21:25)
[2017-06-14] MEDS: MORPHINE SULFATE 30 MG/30 ML PCA IV SCH ×2 (03:13→14:37)
[2017-06-14] MEDS: PCA - TOTAL MG MORPHINE DELIVERED PER SHIFT SCH ×3 (06:00→22:00)
[2017-06-14] MEDS: SODIUM CHLOR 0.9% 1000 ML INJ 1,000 ML IV SCH (07:00)
--- NOTE | 2017-06-14 08:21 | HHI.PR ---
Subjective Remarks in no acute distress. pain is fairly controlled. no fever. no new complaints. Objective Vitals Vital Signs Date Time Temp Pulse Resp B/P (MAP) Pulse Ox O2 Delivery O2 Flow Rate FiO2 06/14/17 06:00 17 06/14/17 04:00 97.1 83 18 123/58 (79) 93 06/14/17 03:19 17 06/14/17 03:13 18 06/14/17 00:00 96.3 93 18 122/63 (82) 92 06/13/17 23:50 17 06/13/17 23:46 Nasal Cannula 2.00 06/13/17 22:00 18 06/13/17 20:00 97.5 99 17 112/76 (88) 95 06/13/17 19:42 17 06/13/17 16:45 97.2 93 18 124/66 (85) 96 06/13/17 15:50 97.6 87 16 122/60 (80) 96 Nasal Cannula 2 06/13/17 15:00 89 16 119/59 (79) 95 Nasal Cannula 2 06/13/17 14:31 15 06/13/17 14:30 92 16 113/56 (75) 95 Nasal Cannula 2 06/13/17 14:00 96 16 108/55 (72) 94 Nasal Cannula 2 06/13/17 14:00 18 06/13/17 13:45 95 15 108/56 (73) 98 Nasal Cannula 3 06/13/17 13:30 96 15 106/55 (72) 97 Nasal Cannula 3 06/13/17 13:15 98 15 105/54 (71) 98 Nasal Cannula 4 06/13/17 13:00 97 15 104/55 (71) 96 Nasal Cannula 4 06/13/17 12:50 97.4 99 16 111/56 (74) 94 Nasal Cannula 4 I/O 06/13/17 06/13/17 06/13/17 06/14/17 06/14/17 06/14/17 07:00 15:00 23:00 07:00 15:00 23:00 Intake Total 2800 ml 1522 ml 758 ml Output Total 750 ml 2075 ml 1550 ml Balance 2050 ml -553 ml -792 ml Intake Oral 960 ml 120 ml IV Total 2800 ml 562 ml 638 ml Output Urine Total 600 ml 2075 ml 1550 ml Estimated Blood Loss 150 ml # Bowel Movements 0 Result Diagram: 06/13/17 1340 06/13/17 1818 Imaging Last Impressions Lumbar Spine X-Ray 06/13/17 0000 Signed Impressions: Service Date/Time: June 08:47 - CONCLUSION: Fluoroscopic images during placement of screws and rods at L3-4 and L4-5 levels. Intervertebral disc devices are seen. Jameson Mendez MD Objective Remarks GENERAL: This is a well-nourished, well-developed patient, in no apparent distress. CARDIOVASCULAR: Regular rate and regular rhythm without murmurs, gallops, or rubs. RESPIRATORY: Clear to auscultation. Breath sounds equal bilaterally. No wheezes , rales, or rhonchi. GASTROINTESTINAL: Abdomen soft, non-tender, nondistended. Normal, active bowel sounds MUSCULOSKELETAL: Extremities without clubbing, cyanosis, or edema. NEURO: Alert & Oriented x4 to person, place, time, situation. Moves all ext x4 Medications and IVs Current Medications Lactated Ringer's 1,000 ml @ 30 mls/hr Q24H PRN IV SEE LABEL COMMENTS Last administered on 06/13/17 06:55; Start 06/13/17 at 07:00; Stop 06/16/17 at 06: 59 Sodium Chloride 500 ml @ 30 mls/hr [id number] PRN IV SEE LABEL COMMENTS; Start at 07:00; Stop 06/16/17 at 06:59 Metoprolol Tartrate (Lopressor) 25 mg SOCIAL WORK LECTURER PRN PO SEE LABEL COMMENTS; Start 06/13/17 at 07:00; Stop 06/16/17 at 06:59 Povidone Iodine (Betadine 5% Antisepsis Kit) 1 applic SOCIAL WORK LECTURER PRN EACH NARE SEE LABEL COMMENTS Last administered on 06/13/17 07:33; Start 06/13/17 at 07:00 ; Stop 06/16/17 at 06:59 Chlorhexidine Gluconate (Chlorhexidine 2% Cloth) 3 pack SOCIAL WORK LECTURER PRN TOPICAL SEE LABEL COMMENTS Last administered on 06/13/17 06:45; Start 06/13/17 at 07:00 ; Stop 06/16/17 at 06:59 Insulin Human Regular (NovoLIN R INJ) See Protocol Table ... SOCIAL WORK LECTURER PRN SQ SEE PROTOCOL TABLE; Start 06/13/17 at 07:00; Stop 06/16/17 at 06:59 Vancomycin HCl 1000 mg/Sodium Chloride 250 ml @ 250 mls/hr SOCIAL WORK LECTURER IV ; Start 06/13/17 at 07:00; Stop 06/16/17 at 13:00 Sodium Chloride 1,000 ml @ 30 mls/hr Q24H IV ; Start 06/13/17 at 07:00 Vancomycin HCl (Vancomycin Inj) 1,000 mg STK-MED ONCE .ROUTE Last administered on 06/13/17 09:30; Start 06/13/17 at 06:53; Stop 06/13/17 at 06:54; Status DC Thrombin (Thrombin Top Soln) 10,000 units STK-MED ONCE .ROUTE Last administered on 06/13/17 09:30; Start 06/13/17 at 06:53; Stop 06/13/17 at 06:54 ; Status DC Bupivacaine HCl/ Epinephrine Bitart (Sensorcaine-Epinephrine Pf 0.5% Inj) 30 ml STK-MED ONCE .ROUTE Last administered on 06/13/17 09:16; Start 06/13/17 at 06: 53; Stop 06/13/17 at 06:54; Status DC Gelatin (Gelfoam 100 Top) 1 foam STK-MED ONCE .ROUTE Last administered on 09:30; Start 06/13/17 at 06:53; Stop 06/13/17 at 06:54; Status DC Vancomycin HCl (Vancomycin Inj) 1,000 mg STK-MED ONCE .ROUTE Last administered on 06/13/17 12:13; Start 06/13/17 at 06:54; Stop 06/13/17 at 06:55; Status DC Propofol 100 ml @ As Directed STK-MED ONCE .ROUTE ; Start 06/13/17 at 07:58; Stop 06/13/17 at 07:59; Status DC Midazolam HCl (Versed Inj) 2 mg STK-MED ONCE .ROUTE ; Start 06/13/17 at 08:06; Stop 06/13/17 at 08:07; Status DC Dopamine HCl/ Dextrose 500 ml @ As Directed STK-MED ONCE .ROUTE ; Start at 09:23; Stop 06/13/17 at 09:24; Status DC Vasopressin (Pitressin Inj) 20 units STK-MED ONCE .ROUTE ; Start 06/13/17 at 09: 33; Stop 06/13/17 at 09:34; Status DC Calcium Chloride (Calcium Chloride Inj) 1 gm STK-MED ONCE .ROUTE ; Start at 09:53; Stop 06/13/17 at 09:54; Status DC Cyclobenzaprine HCl (Flexeril) 10 mg TID PO Last administered on 06/13/17 17: 22; Start 06/13/17 at 13:00 Doxepin HCl (SINEquan) 50 mg HS PRN PO INSOMNIA Last administered on 06/14/17 00:05; Start 06/13/17 at 13:00 Furosemide (Lasix) 20 mg BID PO Last administered on 06/13/17 19:41; Start at 21:00 Spironolactone (Aldactone) 25 mg DAILY PO ; Start 06/14/17 at 09:00 Tamsulosin HCl (Flomax) 0.4 mg DAILY PO ; Start 06/14/17 at 09:00 Patient Own Medication PT OWN MED: (Buprenorphine Patch 168... Q7D TOPICAL ; Start 06/13/17 at 14:15; Status Future Hold Pantoprazole Sodium (Protonix) 40 mg DAILY PO ; Start 06/14/17 at 09:00 Non-Formulary Medication 37.5 mg DAILY PO ; Start 06/14/17 at 09:00; Stop at 09:00; Status DC Naloxone HCl (Narcan Inj) 0.4 mg UNSCH PRN IV PUSH RESPIRATORY RATE LESS THAN 10; Start 06/13/17 at 13:00 Diphenhydramine HCl (Benadryl) 25 mg Q6H PRN PO ITCHING; Start 06/13/17 at 13: 00 RENEWALS MANAGER Dosage Infused (Pha) 1 Q8HR OTHER ; Start 06/13/17 at 14:00; Stop 06/13/17 at 14:10; Status DC Naloxone HCl (Narcan Inj) 0.4 mg UNSCH PRN IV PUSH RESPIRATORY RATE LESS THAN 10; Start 06/13/17 at 13:00; Stop 06/13/17 at 14:10; Status DC Diphenhydramine HCl (Benadryl Inj) 25 mg Q6H PRN IV PUSH ITCHING; Start at 13:00 Morphine Sulfate (Morphine 1 Mg/ ml RENEWALS MANAGER) 30 mg UNSCH IV Last administered on 03:13; Start 06/13/17 at 13:00 RENEWALS MANAGER Dosage Infused (Pha) 1 Q8HR .XX Last administered on 06/14/17 06:00; Start 06/13/17 at 14:00 Potassium Chloride/Sodium Chloride 1,000 ml @ 80 mls/hr [id number] IV Last administered on 06/14/17 02:53; Start 06/13/17 at 12:53 Sodium Chloride (NS Flush) 2 ml UNSCH PRN IV FLUSH FLUSH AFTER USING IV ACCESS ; Start 06/13/17 at 13:00 Sodium Chloride (NS Flush) 2 ml BID IV FLUSH ; Start 06/13/17 at 21:00 Cefazolin Sodium 1000 mg/Sodium Chloride 100 ml @ 200 mls/hr Q8H IV Last administered on 06/14/17 05:52; Start 06/13/17 at 15:00; Stop 06/14/17 at 07:29 ; Status DC Docusate Sodium (Colace) 100 mg BID PO Last administered on 06/13/17 19:41; Start 06/13/17 at 21:00 Magnesium Hydroxide (Milk Of Magnesia Liq) 30 ml DAILY PRN PO Mild-moderate constipation; Start 06/13/17 at 13:00 Al Hydrox/Mg Hydrox/Simethicone (Mag-Al Plus Susp Liq) 30 ml Q6H PRN PO DYSPEPSIA; Start 06/13/17 at 13:00 Ondansetron HCl (Zofran Inj) 4 mg Q6H PRN IV PUSH NAUSEA OR VOMITING; Start at 13:00 Promethazine HCl (Phenergan Inj) 25 mg Q4H PRN IM NAUSEA OR VOMITING; Start at 13:00 Calcium Gluconate 1 gm/Sodium Chloride 110 ml @ 110 mls/hr UNSCH PRN IV SEE LABEL COMMENTS; Start 06/13/17 at 13:00 Potassium Chloride 100 ml @ 50 mls/hr UNSCH PRN IV POTASSIUM LESS THAN 4; Start 06/13/17 at 13:00 Magnesium Sulfate 2 gm/Sodium Chloride 104 ml @ 100 mls/hr UNSCH PRN IV MAGNESIUM LESS THAN 2; Start 06/13/17 at 13:00 Acetaminophen/ Hydrocodone Bitart ([place] 10-325 Mg) 1 tab Q4H PRN PO PAIN SCALE 1 TO 5 Last administered on 06/13/17t 22:41; Start 06/13/17 at 13:00 Acetaminophen/ Hydrocodone Bitart ([place] 10-325 Mg) 2 tab Q4H PRN PO PAIN SCALE 6 TO 10; Start 06/13/17 at 13:00 Clonidine (Catapres) 0.1 mg Q6H PRN PO SYS BP GREATER THAN 170 MMHG; Start 06/13/17 at 13:00 Acetaminophen (Tylenol) 650 mg Q4H PRN PO TEMPERATURE > 101.5 F; Start at 13:00 Menthol ([place] Rober) 1 lozenge UNSCH PRN BUCCAL SORE THROAT; Start 06/13/17 at 13:00 Albuterol Sulfate (Albuterol Neb) 2.5 mg Q4HR NEB PRN NEB WHEEZING; Start 06/13 at 13:00 Lactulose (Lactulose Liq) 30 ml DAILY PO ; Start 06/14/17 at 09:00 Hydrochlorothiazide (Microzide) 12.5 mg DAILY PO ; Start 06/14/17 at 09:00 Duloxetine HCl (Cymbalta Dr) 30 mg DAILY PO ; Start 06/14/17 at 09:00 Miscellaneous Information ALL NURSING DEPARTME... UNSCH PRN .XX SEE LABEL COMMENTS; Start 06/13/17 at 14:30; Stop 06/14/17 at 14:29 A/P Assessment and Plan A/P - chronic low back pain- s/p L3-4 Laminectomy continue with pain control and rehab efforts- management per neurosurgery. -hypertension; on HCTZ- will monitor and adjust the regimen as needed. -DVT prophylaxis; per neurosurgery. Avila Lam MD Jun 14, 2017 08:21
[2017-06-14] MEDS: SPIRONOLACTONE 25 MG TAB PO SCH (09:00)
[2017-06-14] MEDS: SODIUM CHLORIDE 0.9% FLUSH 10 ML FLUSH IV FLUSH SCH ×2 (09:00→21:23)
[2017-06-14] MEDS: HYDROCHLOROTHIAZIDE 12.5 MG CAP PO SCH (09:00)
[2017-06-14] MEDS: FUROSEMIDE 20 MG TAB PO SCH ×2 (09:00→21:23)
[2017-06-14] MEDS ORDERED: PHENTERMINE 37.5 MG PO SCH (09:00)
[2017-06-14] MEDS: LACTULOSE SYRUP 20 GM/30 ML CUP PO SCH (10:04)
[2017-06-14] MEDS: TAMSULOSIN HCL 0.4 MG CAP PO SCH (10:05)
[2017-06-14] MEDS: ACETAMINOPHEN/HYDROcodone 325 MG/10 MG TAB PO PRN ×2 (10:05→14:25)
[2017-06-14] MEDS: PANTOPRAZOLE SOD 40 MG DELAYED RELEASE TAB PO SCH (10:05)
[2017-06-14] MEDS: DOCUSATE SODIUM 100 MG CAP PO SCH ×2 (10:06→21:23)
[2017-06-14] MEDS: CYCLOBENZAPRINE HCL 10 MG TAB PO SCH ×3 (10:06→18:46)
[2017-06-14] MEDS: DULoxetine HCl DR 30 MG CAP PO SCH (10:06)
--- NOTE | 2017-06-14 12:18 | HHI.NSPN ---
History Interval History 06/14 Patient complains of back pain. Able to walk. +flatus Review of Systems Respiratory: Negative for: shortness of breath Gastrointestinal: Negative for: nausea Exam Results Vital Signs Date Time Temp Pulse Resp B/P (MAP) Pulse Ox O2 Delivery O2 Flow Rate FiO2 06/14/17 08:00 98.5 76 18 107/70 (82) 96 06/13/17 23:46 Nasal Cannula 2.00 Intake and Output 06/14/17 06/14/17 06/15/17 08:00 16:00 00:00 Intake Total 658 ml Output Total 1550 ml Balance -892 ml Physical Examination Patient is alert and oriented 3 Speech is clear, appropriate and non-aphasic Motor strength testing 5/5 HF/KE/KF/DF/PF/EHL bilaterally Sensation grossly intact to light touch Incision dressing clean, dry, intact Lab, Micro, Other Results Last 48 hours Impressions Lumbar Spine X-Ray 06/13/17 0000 Signed Impressions: Service Date/Time: June 08:47 - CONCLUSION: Fluoroscopic images during placement of screws and rods at L3-4 and L4-5 levels. Intervertebral disc devices are seen. Jameson Mendez MD Medical Decision Making Impression and Plan POD 1 s/p L3-L4 TLIF Neuro: Patient is doing well with no focal neurologic deficit. He is ambulating without any difficulties. Integument: Intact. May wash incision on POD3 Pain: well controlled Dispo: Plan for discharge in am Tray Hi MD Jun 14, 2017 12:18
[2017-06-15] VITALS (7 sets, daily range): BP systolic 117–141; BP diastolic 74–83; PULSE 74–91; RESP 18–20; TEMP 96.1–98; O2SAT 92–96
[2017-06-15] MEDS: DOXEPIN HCL 25 MG CAP PO PRN ×2 (00:15→22:09)
[2017-06-15] MEDS: ACETAMINOPHEN/HYDROcodone 325 MG/10 MG TAB PO PRN ×5 (00:15→20:36)
[2017-06-15] MEDS: PCA - TOTAL MG MORPHINE DELIVERED PER SHIFT SCH ×2 (06:00→10:41)
[2017-06-15] MEDS: SODIUM CHLOR 0.9% 1000 ML INJ 1,000 ML IV SCH ×2 (06:01→20:36)
[2017-06-15] MEDS: DULoxetine HCl DR 30 MG CAP PO SCH (07:36)
[2017-06-15] MEDS: DOCUSATE SODIUM 100 MG CAP PO SCH ×2 (07:36→20:35)
[2017-06-15] MEDS: HYDROCHLOROTHIAZIDE 12.5 MG CAP PO SCH (07:36)
[2017-06-15] MEDS: PANTOPRAZOLE SOD 40 MG DELAYED RELEASE TAB PO SCH (07:36)
[2017-06-15] MEDS: CYCLOBENZAPRINE HCL 10 MG TAB PO SCH ×2 (07:36→11:34)
[2017-06-15] MEDS: FUROSEMIDE 20 MG TAB PO SCH ×2 (07:36→20:37)
[2017-06-15] MEDS: TAMSULOSIN HCL 0.4 MG CAP PO SCH (07:36)
[2017-06-15] MEDS: SPIRONOLACTONE 25 MG TAB PO SCH (07:37)
[2017-06-15] MEDS: SODIUM CHLORIDE 0.9% FLUSH 10 ML FLUSH IV FLUSH SCH ×2 (07:38→20:36)
[2017-06-15] MEDS: LACTULOSE SYRUP 20 GM/30 ML CUP PO SCH (07:38)
[2017-06-15 07:49] LABS: BICARBONATE 29.2 MEQ/L (21.0-32.0); POTASSIUM 3.8 MEQ/L (3.5-5.1)
[2017-06-15] MEDS: MORPHINE SULFATE 30 MG/30 ML PCA IV SCH (10:45)
--- NOTE | 2017-06-15 11:00 | HHI.PR ---
Subjective Remarks in no acute distress. back pain is moderate to severe. Objective Vitals Vital Signs Date Time Temp Pulse Resp B/P (MAP) Pulse Ox O2 Delivery O2 Flow Rate FiO2 06/15/17 10:45 18 06/15/17 10:41 18 06/15/17 08:00 97.4 80 18 128/74 (92) 95 06/15/17 06:00 18 06/15/17 04:00 97.9 91 20 141/83 (102) 95 06/15/17 01:33 17 06/15/17 00:00 96.1 78 18 136/76 (96) 96 06/14/17 23:49 Room Air 06/14/17 22:00 18 06/14/17 20:00 98.4 83 20 133/71 (91) 93 06/14/17 17:06 98 06/14/17 16:00 98.9 74 18 121/73 (89) 95 06/14/17 14:42 18 06/14/17 14:37 18 06/14/17 12:00 96.1 83 18 116/75 (89) 98 I/O 06/14/17 06/14/17 06/14/17 06/15/17 06/15/17 06/15/17 07:00 15:00 23:00 07:00 15:00 23:00 Intake Total 758 ml 1244.7 ml 360 ml 480 ml Output Total 1550 ml 950 ml Balance -792 ml 1244.7 ml 360 ml -470 ml Intake Oral 120 ml 480 ml 480 ml IV Total 638 ml 764.7 ml 360 ml Output Urine Total 1550 ml 950 ml # Voids 2 # Bowel Movements 0 0 0 Result Diagram: 06/13/17 1340 06/15/17 0652 Imaging Last Impressions Lumbar Spine X-Ray 06/13/17 0000 Signed Impressions: Service Date/Time: June 08:47 - CONCLUSION: Fluoroscopic images during placement of screws and rods at L3-4 and L4-5 levels. Intervertebral disc devices are seen. Jameson Mendez MD Objective Remarks GENERAL: This is a well-nourished, well-developed patient, in no apparent distress. CARDIOVASCULAR: Regular rate and regular rhythm without murmurs, gallops, or rubs. RESPIRATORY: Clear to auscultation. Breath sounds equal bilaterally. No wheezes , rales, or rhonchi. GASTROINTESTINAL: Abdomen soft, non-tender, nondistended. Normal, active bowel sounds MUSCULOSKELETAL: Extremities without clubbing, cyanosis, or edema. NEURO: Alert & Oriented x4 to person, place, time, situation. Moves all ext x4 Medications and IVs Current Medications Lactated Ringer's 1,000 ml @ 30 mls/hr Q24H PRN IV SEE LABEL COMMENTS Last administered on 06/13/17 06:55; Start 06/13/17 at 07:00; Stop 06/16/17 at 06: 59 Sodium Chloride 500 ml @ 30 mls/hr [id number] PRN IV SEE LABEL COMMENTS; Start at 07:00; Stop 06/16/17 at 06:59 Metoprolol Tartrate (Lopressor) 25 mg POWERHOUSE ELECTRICIAN APPRENTICE PRN PO SEE LABEL COMMENTS; Start 06/13/17 at 07:00; Stop 06/16/17 at 06:59 Povidone Iodine (Betadine 5% Antisepsis Kit) 1 applic POWERHOUSE ELECTRICIAN APPRENTICE PRN EACH NARE SEE LABEL COMMENTS Last administered on 06/13/17 07:33; Start 06/13/17 at 07:00 ; Stop 06/16/17 at 06:59 Chlorhexidine Gluconate (Chlorhexidine 2% Cloth) 3 pack POWERHOUSE ELECTRICIAN APPRENTICE PRN TOPICAL SEE LABEL COMMENTS Last administered on 06/13/17 06:45; Start 06/13/17 at 07:00 ; Stop 06/16/17 at 06:59 Insulin Human Regular (NovoLIN R INJ) See Protocol Table ... POWERHOUSE ELECTRICIAN APPRENTICE PRN SQ SEE PROTOCOL TABLE; Start 06/13/17 at 07:00; Stop 06/16/17 at 06:59 Vancomycin HCl 1000 mg/Sodium Chloride 250 ml @ 250 mls/hr POWERHOUSE ELECTRICIAN APPRENTICE IV ; Start 06/13/17 at 07:00; Stop 06/16/17 at 13:00 Sodium Chloride 1,000 ml @ 30 mls/hr Q24H IV ; Start 06/13/17 at 07:00 Vancomycin HCl (Vancomycin Inj) 1,000 mg STK-MED ONCE .ROUTE Last administered on 06/13/17 09:30; Start 06/13/17 at 06:53; Stop 06/13/17 at 06:54; Status DC Thrombin (Thrombin Top Soln) 10,000 units STK-MED ONCE .ROUTE Last administered on 06/13/17 09:30; Start 06/13/17 at 06:53; Stop 06/13/17 at 06:54 ; Status DC Bupivacaine HCl/ Epinephrine Bitart (Sensorcaine-Epinephrine Pf 0.5% Inj) 30 ml STK-MED ONCE .ROUTE Last administered on 06/13/17 09:16; Start 06/13/17 at 06: 53; Stop 06/13/17 at 06:54; Status DC Gelatin (Gelfoam 100 Top) 1 foam STK-MED ONCE .ROUTE Last administered on 09:30; Start 06/13/17 at 06:53; Stop 06/13/17 at 06:54; Status DC Vancomycin HCl (Vancomycin Inj) 1,000 mg STK-MED ONCE .ROUTE Last administered on 06/13/17 12:13; Start 06/13/17 at 06:54; Stop 06/13/17 at 06:55; Status DC Propofol 100 ml @ As Directed STK-MED ONCE .ROUTE ; Start 06/13/17 at 07:58; Stop 06/13/17 at 07:59; Status DC Midazolam HCl (Versed Inj) 2 mg STK-MED ONCE .ROUTE ; Start 06/13/17 at 08:06; Stop 06/13/17 at 08:07; Status DC Dopamine HCl/ Dextrose 500 ml @ As Directed STK-MED ONCE .ROUTE ; Start at 09:23; Stop 06/13/17 at 09:24; Status DC Vasopressin (Pitressin Inj) 20 units STK-MED ONCE .ROUTE ; Start 06/13/17 at 09: 33; Stop 06/13/17 at 09:34; Status DC Calcium Chloride (Calcium Chloride Inj) 1 gm STK-MED ONCE .ROUTE ; Start at 09:53; Stop 06/13/17 at 09:54; Status DC Cyclobenzaprine HCl (Flexeril) 10 mg TID PO Last administered on 06/15/17 07: 36; Start 06/13/17 at 13:00 Doxepin HCl (SINEquan) 50 mg HS PRN PO INSOMNIA Last administered on 06/15/17 00:15; Start 06/13/17 at 13:00 Furosemide (Lasix) 20 mg BID PO Last administered on 06/15/17 07:36; Start at 21:00 Spironolactone (Aldactone) 25 mg DAILY PO Last administered on 06/15/17 07:37 ; Start 06/14/17 at 09:00 Tamsulosin HCl (Flomax) 0.4 mg DAILY PO Last administered on 06/15/17 07:36; Start 06/14/17 at 09:00 Patient Own Medication PT OWN MED: (Buprenorphine Patch 168... Q7D TOPICAL ; Start 06/13/17 at 14:15; Status Future Hold Pantoprazole Sodium (Protonix) 40 mg DAILY PO Last administered on 06/15/17 07 :36; Start 06/14/17 at 09:00 Non-Formulary Medication 37.5 mg DAILY PO ; Start 06/14/17 at 09:00; Stop at 09:00; Status DC Naloxone HCl (Narcan Inj) 0.4 mg UNSCH PRN IV PUSH RESPIRATORY RATE LESS THAN 10; Start 06/13/17 at 13:00 Diphenhydramine HCl (Benadryl) 25 mg Q6H PRN PO ITCHING; Start 06/13/17 at 13: 00 MANAGER INTERN Dosage Infused (Pha) 1 Q8HR OTHER ; Start 06/13/17 at 14:00; Stop 06/13/17 at 14:10; Status DC Naloxone HCl (Narcan Inj) 0.4 mg UNSCH PRN IV PUSH RESPIRATORY RATE LESS THAN 10; Start 06/13/17 at 13:00; Stop 06/13/17 at 14:10; Status DC Diphenhydramine HCl (Benadryl Inj) 25 mg Q6H PRN IV PUSH ITCHING; Start at 13:00 Morphine Sulfate (Morphine 1 Mg/ ml MANAGER INTERN) 30 mg UNSCH IV Last administered on 10:45; Start 06/13/17 at 13:00 MANAGER INTERN Dosage Infused (Pha) 1 Q8HR .XX Last administered on 06/15/17 10:41; Start 06/13/17 at 14:00 Potassium Chloride/Sodium Chloride 1,000 ml @ 80 mls/hr [id number] IV Last administered on 06/14/17 21:25; Start 06/13/17 at 12:53 Sodium Chloride (NS Flush) 2 ml UNSCH PRN IV FLUSH FLUSH AFTER USING IV ACCESS ; Start 06/13/17 at 13:00 Sodium Chloride (NS Flush) 2 ml BID IV FLUSH Last administered on 06/15/17 07: 38; Start 06/13/17 at 21:00 Cefazolin Sodium 1000 mg/Sodium Chloride 100 ml @ 200 mls/hr Q8H IV Last administered on 06/14/17 05:52; Start 06/13/17 at 15:00; Stop 06/14/17 at 07:29 ; Status DC Docusate Sodium (Colace) 100 mg BID PO Last administered on 06/15/17 07:36; Start 06/13/17 at 21:00 Magnesium Hydroxide (Milk Of Magnesia Liq) 30 ml DAILY PRN PO Mild-moderate constipation; Start 06/13/17 at 13:00 Al Hydrox/Mg Hydrox/Simethicone (Mag-Al Plus Susp Liq) 30 ml Q6H PRN PO DYSPEPSIA; Start 06/13/17 at 13:00 Ondansetron HCl (Zofran Inj) 4 mg Q6H PRN IV PUSH NAUSEA OR VOMITING; Start at 13:00 Promethazine HCl (Phenergan Inj) 25 mg Q4H PRN IM NAUSEA OR VOMITING; Start at 13:00 Calcium Gluconate 1 gm/Sodium Chloride 110 ml @ 110 mls/hr UNSCH PRN IV SEE LABEL COMMENTS; Start 06/13/17 at 13:00 Potassium Chloride 100 ml @ 50 mls/hr UNSCH PRN IV POTASSIUM LESS THAN 4; Start 06/13/17 at 13:00 Magnesium Sulfate 2 gm/Sodium Chloride 104 ml @ 100 mls/hr UNSCH PRN IV MAGNESIUM LESS THAN 2; Start 06/13/17 at 13:00 Acetaminophen/ Hydrocodone Bitart ([place] 10-325 Mg) 1 tab Q4H PRN PO PAIN SCALE 1 TO 5 Last administered on 06/14/17 10:05; Start 06/13/17 at 13:00 Acetaminophen/ Hydrocodone Bitart ([place] 10-325 Mg) 2 tab Q4H PRN PO PAIN SCALE 6 TO 10 Last administered on 06/15/17 07:36; Start 06/13/17 at 13:00 Clonidine (Catapres) 0.1 mg Q6H PRN PO SYS BP GREATER THAN 170 MMHG; Start 06/13/17 at 13:00 Acetaminophen (Tylenol) 650 mg Q4H PRN PO TEMPERATURE > 101.5 F; Start at 13:00 Menthol ([place] Rober) 1 lozenge UNSCH PRN BUCCAL SORE THROAT; Start 06/13/17 at 13:00 Albuterol Sulfate (Albuterol Neb) 2.5 mg Q4HR NEB PRN NEB WHEEZING; Start 06/13 at 13:00 Lactulose (Lactulose Liq) 30 ml DAILY PO Last administered on 06/15/17 07:38; Start 06/14/17 at 09:00 Hydrochlorothiazide (Microzide) 12.5 mg DAILY PO Last administered on 07:36; Start 06/14/17 at 09:00 Duloxetine HCl (Cymbalta Dr) 30 mg DAILY PO Last administered on 06/15/17 07: 36; Start 06/14/17 at 09:00 Miscellaneous Information ALL NURSING DEPARTME... UNSCH PRN .XX SEE LABEL COMMENTS; Start 06/13/17 at 14:30; Stop 06/14/17 at 14:29; Status DC A/P Assessment and Plan A/P - chronic low back pain- s/p L3-4 Laminectomy continue with pain control and rehab efforts- management per neurosurgery. -hypertension; on HCTZ- will monitor and adjust the regimen as needed. -DVT prophylaxis; per neurosurgery. Discharge Planning per neurosurgery and when pain is better controlled. Avila Lam MD Jun 15, 2017 11:00
[2017-06-15] MEDS: NS + KCL 20 MEQ INJ 1,000 ML IV SCH ×2 (11:36→20:36)
--- NOTE | 2017-06-15 12:20 | HHI.NSPN ---
History Interval History 06/14 Patient complains of back pain. Able to walk. +flatus 06/15 patient endorses severe back spasm that began last night. He is unable to find a comfortable position. Exam Results Vital Signs Date Time Temp Pulse Resp B/P (MAP) Pulse Ox O2 Delivery O2 Flow Rate FiO2 06/15/17 11:33 96.3 81 18 134/78 (96) 93 06/14/17 23:49 Room Air 06/13/17 23:46 2.00 Intake and Output 06/15/17 06/15/17 06/16/17 08:00 16:00 00:00 Intake Total 480 ml Output Total 950 ml Balance -470 ml Physical Examination Patient is alert and oriented 3 Speech is clear, appropriate and non-aphasic Motor strength testing 5/5 HF/KE/KF/DF/PF/EHL bilaterally Sensation grossly intact to light touch Incision dressing dry, intact, with a small amount of dried blood Lab, Micro, Other Results Allergies Coded Allergies Type Severity Reaction Last Updated Verified MRI PRECAUTION Allergy Severe PT HAS IMPLANTED NERVE STIMULATOR (MEDTRONIC) Yes hydromorphone Allergy Severe 06/13/17 No meperidine Allergy Unknown 06/13/17 No prochlorperazine Adverse Reaction Severe AGITATION 06/13/17 No Recent Impressions Lumbar Spine X-Ray 06/13/17 0000 Signed Impressions: Service Date/Time: June 08:47 - CONCLUSION: Fluoroscopic images during placement of screws and rods at L3-4 and L4-5 levels. Intervertebral disc devices are seen. Jameson Mendez MD 06/13/17 06/13/17 06/14/17 06/14/17 06/15/17 06/15/17 06:00 18:00 06:00 18:00 06:00 18:00 Intake Total 3362 ml 1718 ml 1244.7 ml 840 ml Output Total 1375 ml 1450 ml 1550 ml 950 ml Balance 1987 ml 268 ml -305.3 ml -110 ml Intake Oral 1080 ml 480 ml 480 ml IV Total 3362 ml 638 ml 764.7 ml 360 ml Output Urine Total 1225 ml 1450 ml 1550 ml 950 ml Estimated Blood Loss 150 ml # Voids 2 # Bowel Movements 0 0 0 Laboratory Tests Test 06/13/17 09:45 06/13/17 13:40 06/13/17 18:18 06/15/17 06:52 Blood Gas Puncture Site DRAWN IN OR Blood Gas Patient Temperature 98.6 Blood Gas HCO3 26 mmol/L Blood Gas Base Excess 1.1 mmol/L Blood Gas Oxygen Saturation 96 % Arterial Blood pH 7.36 Arterial Blood Partial Pressure CO2 47 mmHg Arterial Blood Partial Pressure O2 130 mmHg Arterial Blood Oxygen Content 20.5 Vol % Arterial Blood Carboxyhemoglobin 0.6 % Arterial Blood Methemoglobin 1.5 % Blood Gas Hemoglobin 15.1 G/DL Oxygen Delivery Device OPERATING ROOM Blood Gas Inspired Oxygen 50 % White Blood Count 10.0 TH/MM3 Red Blood Count 4.51 MIL/MM3 Hemoglobin 14.2 GM/DL Hematocrit 40.4 % Mean Corpuscular Volume 89.5 FL Mean Corpuscular Hemoglobin 31.5 PG Mean Corpuscular Hemoglobin Concent 35.2 % Red Cell Distribution Width 12.1 % Platelet Count 196 TH/MM3 Mean Platelet Volume 8.2 FL Neutrophils (%) (Auto) 90.1 % Lymphocytes (%) (Auto) 5.6 % Monocytes (%) (Auto) 3.9 % Eosinophils (%) (Auto) 0.2 % Basophils (%) (Auto) 0.2 % Neutrophils # (Auto) 9.0 TH/MM3 Lymphocytes # (Auto) 0.6 TH/MM3 Monocytes # (Auto) 0.4 TH/MM3 Eosinophils # (Auto) 0.0 TH/MM3 Basophils # (Auto) 0.0 TH/MM3 CBC Comment DIFF FINAL Differential Comment Blood Urea Nitrogen 20 MG/DL 15 MG/DL Creatinine 1.38 MG/DL 0.96 MG/DL Random Glucose 140 MG/DL 92 MG/DL Calcium Level 8.6 MG/DL 7.7 MG/DL Magnesium Level 1.8 MG/DL Sodium Level 135 MEQ/L 136 MEQ/L Potassium Level 4.2 MEQ/L 3.8 MEQ/L Chloride Level 102 MEQ/L 102 MEQ/L Carbon Dioxide Level 25.4 MEQ/L 29.2 MEQ/L Anion Gap 8 MEQ/L 5 MEQ/L Estimat Glomerular Filtration Rate 52 ML/MIN 79 ML/MIN Orders Procedure Category Date Status Time Lactated Ringer's MED 06/13/17 In Process 1000 Ml Inj (Lr 1000 M 07:00 Sodium Chlorid 0.9% MED 06/13/17 In Process 500 Ml Inj (Ns 500 M 07:00 Metoprolol Tartrate MED 06/13/17 In Process (Lopressor) 07:00 Povidone Iod 5% MED 06/13/17 In Process Antisepsis Kit 07:00 Chlorhexidine 2% MED 06/13/17 In Process Cloth (Chlorhexidine 07:00 Insulin Human Regular MED 06/13/17 In Process Inj (Novolin R Inj 07:00 Vancomycin Inj MED 06/13/17 In Process (Vancomycin Inj) 07:00 Sodium Chlor 0.9% MED 06/13/17 In Process 1000 Ml Inj (Ns 1000 M 07:00 Vancomycin Inj MED 06/13/17 Complete (Vancomycin Inj) 06:53 Thrombin Top Soln MED 06/13/17 Complete (Thrombin Top Soln) 06:53 Bupivacaine-Epi Pf MED 06/13/17 Complete 0.5% Inj (Sensorcaine 06:53 Gelfoam 100 Top MED 06/13/17 Complete (Gelfoam 100 Top) 06:53 Vancomycin Inj MED 06/13/17 Complete (Vancomycin Inj) 06:54 Propofol 500 Mg/50 Ml MED 06/13/17 Complete Inj (Diprivan 500 07:58 Midazolam Inj (Versed MED 06/13/17 Complete Inj) 08:06 Dopamine Inj Premix MED 06/13/17 Complete (Dopamine Inj Premix 09:23 Vasopressin Inj MED 06/13/17 Complete (Pitressin Inj) 09:33 Arterial Blood Gas LAB 06/13/17 Complete (Abg) 09:45 Calcium Chloride Inj MED 06/13/17 Complete (Calcium Chloride I 09:53 Urinary Catheter BETTE 06/13/17 Complete Management 08:30 Am Admit Pre Op Care [facility] 06/13/17 Complete Fluoroscopy,Port Up [facility] 06/13/17 Taken To 1 Hr Spine, Lumbar - Ltd [facility] 06/13/17 Resulted (Ap & Lat) Cyclobenzaprine MED 06/13/17 In Process (Flexeril) 13:00 Doxepin ([place]inequan) MED 06/13/17 In Process 13:00 Furosemide (Lasix) MED 06/13/17 In Process 21:00 Spironolactone MED 06/14/17 In Process (Aldactone) 09:00 Tamsulosin (Flomax) MED 06/14/17 In Process 09:00 Patient Own Medication MED 06/13/17 In Process 14:15 Pantoprazole MED 06/14/17 In Process (Protonix) 09:00 (Nf) Phentermine MED 06/14/17 Complete 09:00 ^ Monitor BETTE 06/13/17 In Process 12:53 ^ Medication Alert BETTE 06/13/17 In Process 12:[address]: Other BETTE 06/13/17 In Process 12:[address]: Blood BETTE 06/13/17 In Process Pressure 12:[address]: BETTE 06/13/17 In Process Respiratory Rate 12:53 Naloxone Inj (Narcan MED 06/13/17 In Process Inj) 13:00 Diphenhydramine MED 06/13/17 In Process (Benadryl) 13:00 Java Gra[employer] Developer Total Dose - MED 06/13/17 Complete Dilaudid 14:00 ^ Monitor BETTE 06/13/17 In Process 12:[address]: Edith AMOS 06/13/17 In Process Pressure 12:[address]: BETTE 06/13/17 In Process Respiratory Rate 12:[address]: Other BETTE 06/13/17 In Process 12:53 ^ Medication Alert BETTE 06/13/17 In Process 12:53 Naloxone Inj (Narcan MED 06/13/17 Complete Inj) 13:00 Diphenhydramine Inj MED 06/13/17 In Process (Benadryl Inj) 13:00 Morphine 1 Mg/Ml [employer] Developer MED 06/13/17 In Process (Morphine 1 Mg/Ml P 13:00 Java [employer]ils Developer Total Dose - MED 06/13/17 In Process Morphine 14:00 Ns + Kcl 20 Meq Inj MED 06/13/17 In Process (Ns + Kcl 20 Meq Inj 12:53 Admit To Inpatient ADMITTING 06/13/17 Transmitted Vital Signs (Adult) BETTE 06/13/17 In Process 12:53 Neuro Checks BETTE 06/13/17 Complete 12:53 Activity Oob Ad Emma BETTE 06/13/17 In Process 12:53 Intake + Output BETTE 06/13/17 In Process 12:53 Remove Urinary BETTE 06/13/17 In Process Catheter 12:53 Scd / Bruce / Foot Pump BETTE 06/13/17 In Process 12:53 Diet Clear Liquid DIET 06/13/17 Complete Lunch Diet Regular Basic DIET 06/13/17 Transmitted Dinner Sodium Chloride 0.9% MED 06/13/17 In Process Flush (Ns Flush) 13:00 Sodium Chloride 0.9% MED 06/13/17 In Process Flush (Ns Flush) 21:00 Cefazolin Inj (Ancef MED 06/13/17 Complete Inj) 15:00 Docusate Sodium MED 06/13/17 In Process (Colace) 21:00 Magnesium Hydroxide MED 06/13/17 In Process Liq (Milk Of Magnesi 13:00 Al-Mag Hy-Si 40-40-4 MED 06/13/17 In Process Mg/Ml Liq (Mag-Al P 13:00 Ondansetron Inj MED 06/13/17 In Process (Zofran Inj) 13:00 Promethazine Inj MED 06/13/17 In Process (Phenergan Inj) 13:00 Calcium Gluconate Inj MED 06/13/17 In Process (Calcium Gluconate 13:00 Potassium Chlor 20 MED 06/13/17 In Process Meq Premix (Kcl 20 Me 13:00 Magnesium Sulfate Inj MED 06/13/17 In Process (Magnesium Sulfate 13:00 Acetamin-Hydrocod MED 06/13/17 In Process 325-10 Mg ([place] 10-32 13:00 Acetamin-Hydrocod MED 06/13/17 In Process 325-10 Mg ([place] 10-32 13:00 Clonidine (Catapres) MED 06/13/17 In Process 13:00 Acetaminophen MED 06/13/17 In Process (Tylenol) 13:00 Menthol Rober ([place] MED 06/13/17 In Process Rober) 13:00 Albuterol Neb MED 06/13/17 In Process (Albuterol Neb) 13:00 Resp Incentive RSP 06/13/17 Complete Spirometry Consult Pt Eval & PT 06/13/17 Logged Treat 12:53 Inpatient ADMITTING 06/13/17 Transmitted Certification Lactulose Liq MED 06/14/17 In Process (Lactulose Liq) 09:00 Hydrochlorothiazide MED 06/14/17 In Process (Microzide) 09:00 Complete Blood Count LAB 06/13/17 Complete With Diff 12:53 Basic Metabolic Panel LAB 06/13/17 Complete (Bmp) 12:53 Magnesium (Mg) LAB 06/13/17 Complete 12:53 Consult Hospitalist CONS 06/13/17 Transmitted ^ Other Nursing Orders BETTE 06/13/17 In Process 12:53 Duloxetine MED 06/14/17 In Process (Dexter Borjas) 09:00 Collar [place] ORTHO 06/13/17 Complete (Hub Use Only)Inp Phy CONS 06/13/17 Transmitted Cons/Ref Misc Nursing MED 06/13/17 Complete Information 14:30 Attending Discharge DISCHARGE 06/15/17 Transmitted Order Document BETTE 06/13/17 In Process Anticoagulant Alert BETTE 06/13/17 In Process ^ Sling BETTE 06/13/17 In Process Resp Oxygen Venkat C RSP 06/13/17 Logged Titrat 1-4 L Corset Quick Draw ORTHO 06/13/17 Logged Class Iv [facility] 06/13/17 Complete MIN General/Pacu [facility] 06/13/17 Complete Post Anesthesia Oxygen [facility] 06/13/17 Complete Pacu Med Holding [facility] 06/13/17 Complete Hourly Collar [place] ORTHO 06/13/17 Complete Brace Quick Draw ORTHO 06/13/17 Complete Corset Sling Cradle Arm ORTHO 06/14/17 Complete Basic Metabolic Panel LAB 06/15/17 Complete (Bmp) 06:00 Vital Signs Date Time Temp Pulse Resp B/P (MAP) Pulse Ox O2 Delivery O2 Flow Rate FiO2 06/15/17 11:33 96.3 81 18 134/78 (96) 93 06/15/17 10:45 18 06/15/17 10:41 18 06/15/17 08:00 97.4 80 18 128/74 (92) 95 06/15/17 06:00 18 06/15/17 04:00 97.9 91 20 141/83 (102) 95 06/15/17 01:33 17 06/15/17 00:00 96.1 78 18 136/76 (96) 96 06/14/17 23:49 Room Air 06/14/17 22:00 18 06/14/17 20:00 98.4 83 20 133/71 (91) 93 06/14/17 17:06 98 06/14/17 16:00 98.9 74 18 121/73 (89) 95 06/14/17 14:42 18 06/14/17 14:37 18 06/14/17 12:00 96.1 83 18 116/75 (89) 98 06/14/17 08:00 98.5 76 18 107/70 (82) 96 06/14/17 06:00 17 06/14/17 04:00 97.1 83 18 123/58 (79) 93 06/14/17 03:13 18 06/14/17 00:00 96.3 93 18 122/63 (82) 92 06/13/17 23:50 17 06/13/17 23:46 Nasal Cannula 2.00 06/13/17 22:00 18 06/13/17 20:00 97.5 99 17 112/76 (88) 95 06/13/17 19:42 17 06/13/17 16:45 97.2 93 18 124/66 (85) 96 06/13/17 15:50 97.6 87 16 122/60 (80) 96 Nasal Cannula 2 06/13/17 15:00 89 16 119/59 (79) 95 Nasal Cannula 2 06/13/17 14:31 15 06/13/17 14:30 92 16 113/56 (75) 95 Nasal Cannula 2 06/13/17 14:00 96 16 108/55 (72) 94 Nasal Cannula 2 06/13/17 14:00 18 06/13/17 13:45 95 15 108/56 (73) 98 Nasal Cannula 3 06/13/17 13:30 96 15 106/55 (72) 97 Nasal Cannula 3 06/13/17 13:15 98 15 105/54 (71) 98 Nasal Cannula 4 06/13/17 13:00 97 15 104/55 (71) 96 Nasal Cannula 4 06/13/17 12:50 97.4 99 16 111/56 (74) 94 Nasal Cannula 4 06/13/17 06:50 98.4 76 18 107/67 (80) 96 Medical Decision Making Impression and Plan POD 2 s/p L3-L4 TLIF Neuro: Patient is doing well with no focal neurologic deficit. He is ambulating without any difficulties. 12/ neurologically stable, but is symptomatic from severe muscle spasm. We will discontinue Flexeril and start Valium. Integument: Intact. May wash incision on POD3 Pain: Symptomatic due to muscle spasm / Valium, ice/heat application DC SOLAR SALES REPRESENTATIVE Initiate [place] Constipation versus postoperative ileus: Encourage ambulation. Aggressive bowel regimen. Dispo: We will delay discharge until symptoms are better controlled Tray Hi MD Jun 15, 2017 12:20
[2017-06-15] MEDS: DIAZEPAM 5 MG TAB PO PRN ×2 (15:35→22:07)
[2017-06-15] MEDS: MAGNESIUM HYDROXIDE SUSP 30 ML CUP PO PRN (20:35)
[2017-06-16 00:24] VITALS: BP 113/75; PULSE 79; RESP 18; TEMP 97; O2SAT 96
[2017-06-16] MEDS: ACETAMINOPHEN/HYDROcodone 325 MG/10 MG TAB PO PRN ×5 (03:17→21:26)
[2017-06-16 04:09] VITALS: BP 156/86; PULSE 94; RESP 18; TEMP 96.6; O2SAT 96
[2017-06-16] MEDS: DIAZEPAM 5 MG TAB PO PRN ×3 (08:10→23:21)
[2017-06-16] MEDS: DOCUSATE SODIUM 100 MG CAP PO SCH ×2 (08:10→21:25)
[2017-06-16] MEDS: TAMSULOSIN HCL 0.4 MG CAP PO SCH (08:10)
[2017-06-16] MEDS: HYDROCHLOROTHIAZIDE 12.5 MG CAP PO SCH (08:11)
[2017-06-16] MEDS: PANTOPRAZOLE SOD 40 MG DELAYED RELEASE TAB PO SCH (08:11)
[2017-06-16] MEDS: DULoxetine HCl DR 30 MG CAP PO SCH (08:11)
[2017-06-16] MEDS: SPIRONOLACTONE 25 MG TAB PO SCH (08:11)
[2017-06-16] MEDS: MAGNESIUM HYDROXIDE SUSP 30 ML CUP PO PRN (08:12)
[2017-06-16] MEDS: LACTULOSE SYRUP 20 GM/30 ML CUP PO SCH (08:12)
[2017-06-16 08:13] VITALS: BP 143/83; PULSE 83; RESP 18; TEMP 95.6; O2SAT 92
[2017-06-16] MEDS: FUROSEMIDE 20 MG TAB PO SCH ×2 (08:13→21:25)
[2017-06-16] MEDS: SODIUM CHLORIDE 0.9% FLUSH 10 ML FLUSH IV FLUSH SCH ×2 (08:13→21:25)
[2017-06-16] MEDS: NS + KCL 20 MEQ INJ 1,000 ML IV SCH (09:04)
[2017-06-16 11:21] VITALS: BP 137/80; PULSE 87; RESP 18; TEMP 95.9; O2SAT 92
--- NOTE | 2017-06-16 11:26 | HHI.PR ---
Subjective Remarks in no acute distress. off CLINICAL ASSESSMENT MANAGER. still complaining of moderate to severe back pain. d/w the RN. Objective Vitals Vital Signs Date Time Temp Pulse Resp B/P (MAP) Pulse Ox O2 Delivery O2 Flow Rate FiO2 06/16/17 08:13 Room Air 06/16/17 08:13 95.6 83 18 143/83 (103) 92 06/16/17 04:09 96.6 94 18 156/86 (109) 96 06/16/17 00:24 97.0 79 18 113/75 (88) 96 06/15/17 20:30 98.0 74 18 140/76 (97) 96 06/15/17 16:00 93 21 06/15/17 15:37 96.2 83 18 117/82 (94) 92 06/15/17 11:33 96.3 81 18 134/78 (96) 93 I/O 06/15/17 06/15/17 06/15/17 06/16/17 06/16/17 06/16/17 07:00 15:00 23:00 07:00 15:00 23:00 Intake Total 480 ml 720 ml 240 ml 240 ml Output Total 950 ml 1250 ml 450 ml 550 ml Balance -470 ml -530 ml -210 ml -310 ml Intake Oral 480 ml 720 ml 240 ml 240 ml Output Urine Total 950 ml 1250 ml 450 ml 550 ml # Bowel Movements 0 0 0 0 Result Diagram: 06/13/17 1340 06/15/17 0652 Imaging Last Impressions Lumbar Spine X-Ray 06/13/17 0000 Signed Impressions: Service Date/Time: June 08:47 - CONCLUSION: Fluoroscopic images during placement of screws and rods at L3-4 and L4-5 levels. Intervertebral disc devices are seen. Jameson Mendez MD Objective Remarks GENERAL: This is a well-nourished, well-developed patient, in no apparent distress. CARDIOVASCULAR: Regular rate and regular rhythm without murmurs, gallops, or rubs. RESPIRATORY: Clear to auscultation. Breath sounds equal bilaterally. No wheezes , rales, or rhonchi. GASTROINTESTINAL: Abdomen soft, non-tender, nondistended. Normal, active bowel sounds MUSCULOSKELETAL: Extremities without clubbing, cyanosis, or edema. NEURO: Alert & Oriented x4 to person, place, time, situation. Moves all ext x4 Medications and IVs Current Medications Lactated Ringer's 1,000 ml @ 30 mls/hr Q24H PRN IV SEE LABEL COMMENTS Last administered on 06/13/17 06:55; Start 06/13/17 at 07:00; Stop 06/16/17 at 06: 59; Status DC Sodium Chloride 500 ml @ 30 mls/hr [id number] PRN IV SEE LABEL COMMENTS; Start at 07:00; Stop 06/16/17 at 06:59; Status DC Metoprolol Tartrate (Lopressor) 25 mg AIRDROP SYSTEMS TECHNICIAN PRN PO SEE LABEL COMMENTS; Start 06/13/17 at 07:00; Stop 06/16/17 at 06:59; Status DC Povidone Iodine (Betadine 5% Antisepsis Kit) 1 applic AIRDROP SYSTEMS TECHNICIAN PRN EACH NARE SEE LABEL COMMENTS Last administered on 06/13/17 07:33; Start 06/13/17 at 07:00 ; Stop 06/16/17 at 06:59; Status DC Chlorhexidine Gluconate (Chlorhexidine 2% Cloth) 3 pack AIRDROP SYSTEMS TECHNICIAN PRN TOPICAL SEE LABEL COMMENTS Last administered on 06/13/17 06:45; Start 06/13/17 at 07:00 ; Stop 06/16/17 at 06:59; Status DC Insulin Human Regular (NovoLIN R INJ) See Protocol Table ... AIRDROP SYSTEMS TECHNICIAN PRN SQ SEE PROTOCOL TABLE; Start 06/13/17 at 07:00; Stop 06/16/17 at 06:59; Status DC Vancomycin HCl 1000 mg/Sodium Chloride 250 ml @ 250 mls/hr AIRDROP SYSTEMS TECHNICIAN IV ; Start 06/13/17 at 07:00; Stop 06/16/17 at 13:00 Sodium Chloride 1,000 ml @ 30 mls/hr Q24H IV ; Start 06/13/17 at 07:00 Vancomycin HCl (Vancomycin Inj) 1,000 mg STK-MED ONCE .ROUTE Last administered on 06/13/17 09:30; Start 06/13/17 at 06:53; Stop 06/13/17 at 06:54; Status DC Thrombin (Thrombin Top Soln) 10,000 units STK-MED ONCE .ROUTE Last administered on 06/13/17 09:30; Start 06/13/17 at 06:53; Stop 06/13/17 at 06:54 ; Status DC Bupivacaine HCl/ Epinephrine Bitart (Sensorcaine-Epinephrine Pf 0.5% Inj) 30 ml STK-MED ONCE .ROUTE Last administered on 06/13/17 09:16; Start 06/13/17 at 06: 53; Stop 06/13/17 at 06:54; Status DC Gelatin (Gelfoam 100 Top) 1 foam STK-MED ONCE .ROUTE Last administered on 09:30; Start 06/13/17 at 06:53; Stop 06/13/17 at 06:54; Status DC Vancomycin HCl (Vancomycin Inj) 1,000 mg STK-MED ONCE .ROUTE Last administered on 06/13/17 12:13; Start 06/13/17 at 06:54; Stop 06/13/17 at 06:55; Status DC Propofol 100 ml @ As Directed STK-MED ONCE .ROUTE ; Start 06/13/17 at 07:58; Stop 06/13/17 at 07:59; Status DC Midazolam HCl (Versed Inj) 2 mg STK-MED ONCE .ROUTE ; Start 06/13/17 at 08:06; Stop 06/13/17 at 08:07; Status DC Dopamine HCl/ Dextrose 500 ml @ As Directed STK-MED ONCE .ROUTE ; Start at 09:23; Stop 06/13/17 at 09:24; Status DC Vasopressin (Pitressin Inj) 20 units STK-MED ONCE .ROUTE ; Start 06/13/17 at 09: 33; Stop 06/13/17 at 09:34; Status DC Calcium Chloride (Calcium Chloride Inj) 1 gm STK-MED ONCE .ROUTE ; Start at 09:53; Stop 06/13/17 at 09:54; Status DC Cyclobenzaprine HCl (Flexeril) 10 mg TID PO Last administered on 06/15/17 11: 34; Start 06/13/17 at 13:00; Stop 06/15/17 at 14:14; Status DC Doxepin HCl (SINEquan) 50 mg HS PRN PO INSOMNIA Last administered on 06/15/17 22:09; Start 06/13/17 at 13:00 Furosemide (Lasix) 20 mg BID PO Last administered on 06/15/17 07:36; Start at 21:00 Spironolactone (Aldactone) 25 mg DAILY PO Last administered on 06/16/17 08:11 ; Start 06/14/17 at 09:00 Tamsulosin HCl (Flomax) 0.4 mg DAILY PO Last administered on 06/16/17 08:10; Start 06/14/17 at 09:00 Patient Own Medication PT OWN MED: (Buprenorphine Patch 168... Q7D TOPICAL ; Start 06/13/17 at 14:15; Status Future Hold Pantoprazole Sodium (Protonix) 40 mg DAILY PO Last administered on 06/16/17 08:11; Start 06/14/17 at 09:00 Non-Formulary Medication 37.5 mg DAILY PO ; Start 06/14/17 at 09:00; Stop at 09:00; Status DC Naloxone HCl (Narcan Inj) 0.4 mg UNSCH PRN IV PUSH RESPIRATORY RATE LESS THAN 10; Start 06/13/17 at 13:00; Stop 06/15/17 at 14:16; Status DC Diphenhydramine HCl (Benadryl) 25 mg Q6H PRN PO ITCHING; Start 06/13/17 at 13: 00; Stop 06/15/17 at 14:16; Status DC CLINICAL ASSESSMENT MANAGER Dosage Infused (Pha) 1 Q8HR OTHER ; Start 06/13/17 at 14:00; Stop 06/13/17 at 14:10; Status DC Naloxone HCl (Narcan Inj) 0.4 mg UNSCH PRN IV PUSH RESPIRATORY RATE LESS THAN 10; Start 06/13/17 at 13:00; Stop 06/13/17 at 14:10; Status DC Diphenhydramine HCl (Benadryl Inj) 25 mg Q6H PRN IV PUSH ITCHING; Start at 13:00; Stop 06/15/17 at 14:16; Status DC Morphine Sulfate (Morphine 1 Mg/ ml CLINICAL ASSESSMENT MANAGER) 30 mg UNSCH IV Last administered on 10:45; Start 06/13/17 at 13:00; Stop 06/15/17 at 14:16; Status DC CLINICAL ASSESSMENT MANAGER Dosage Infused (Pha) 1 Q8HR .XX Last administered on 06/15/17 10:41; Start 06/13/17 at 14:00; Stop 06/15/17 at 14:16; Status DC Potassium Chloride/Sodium Chloride 1,000 ml @ 80 mls/hr [id number] IV Last administered on 06/15/17 11:36; Start 06/13/17 at 12:53 Sodium Chloride (NS Flush) 2 ml UNSCH PRN IV FLUSH FLUSH AFTER USING IV ACCESS ; Start 06/13/17 at 13:00 Sodium Chloride (NS Flush) 2 ml BID IV FLUSH Last administered on 06/16/17 08 :13; Start 06/13/17 at 21:00 Cefazolin Sodium 1000 mg/Sodium Chloride 100 ml @ 200 mls/hr Q8H IV Last administered on 06/14/17 05:52; Start 06/13/17 at 15:00; Stop 06/14/17 at 07:29 ; Status DC Docusate Sodium (Colace) 100 mg BID PO Last administered on 06/16/17 08:10; Start 06/13/17 at 21:00 Magnesium Hydroxide (Milk Of Magnesia Liq) 30 ml DAILY PRN PO Mild-moderate constipation Last administered on 06/16/17 08:12; Start 06/13/17 at 13:00 Al Hydrox/Mg Hydrox/Simethicone (Mag-Al Plus Susp Liq) 30 ml Q6H PRN PO DYSPEPSIA; Start 06/13/17 at 13:00 Ondansetron HCl (Zofran Inj) 4 mg Q6H PRN IV PUSH NAUSEA OR VOMITING; Start at 13:00 Promethazine HCl (Phenergan Inj) 25 mg Q4H PRN IM NAUSEA OR VOMITING; Start at 13:00 Calcium Gluconate 1 gm/Sodium Chloride 110 ml @ 110 mls/hr UNSCH PRN IV SEE LABEL COMMENTS; Start 06/13/17 at 13:00 Potassium Chloride 100 ml @ 50 mls/hr UNSCH PRN IV POTASSIUM LESS THAN 4; Start 06/13/17 at 13:00 Magnesium Sulfate 2 gm/Sodium Chloride 104 ml @ 100 mls/hr UNSCH PRN IV MAGNESIUM LESS THAN 2; Start 06/13/17 at 13:00 Acetaminophen/ Hydrocodone Bitart ([place] 10-325 Mg) 1 tab Q4H PRN PO PAIN SCALE 1 TO 5 Last administered on 06/14/17 10:05; Start 06/13/17 at 13:00 Acetaminophen/ Hydrocodone Bitart ([place] 10-325 Mg) 2 tab Q4H PRN PO PAIN SCALE 6 TO 10 Last administered on 06/16/17 11:14; Start 06/13/17 at 13:00 Clonidine (Catapres) 0.1 mg Q6H PRN PO SYS BP GREATER THAN 170 MMHG; Start 06/13/17 at 13:00 Acetaminophen (Tylenol) 650 mg Q4H PRN PO TEMPERATURE > 101.5 F; Start at 13:00 Menthol ([place]) 1 lozenge UNSCH PRN BUCCAL SORE THROAT; Start 06/13/17 at 13:00 Albuterol Sulfate (Albuterol Neb) 2.5 mg Q4HR NEB PRN NEB WHEEZING; Start 06/13 at 13:00 Lactulose (Lactulose Liq) 30 ml DAILY PO Last administered on 06/16/17 08:12 ; Start 06/14/17 at 09:00 Hydrochlorothiazide (Microzide) 12.5 mg DAILY PO Last administered on 08:11; Start 06/14/17 at 09:00 Duloxetine HCl (Cymbalta Dr) 30 mg DAILY PO Last administered on 06/16/17 08: 11; Start 06/14/17 at 09:00 Miscellaneous Information ALL NURSING DEPARTME... UNSCH PRN .XX SEE LABEL COMMENTS; Start 06/13/17 at 14:30; Stop 06/14/17 at 14:29; Status DC Diazepam (Valium) 5 mg Q6H PRN PO MUSCLE SPASM Last administered on 06/16/17 08:10; Start 06/15/17 at 14:30 A/P Assessment and Plan A/P - chronic low back pain- s/p L3-4 Laminectomy continue with pain control and rehab efforts- management per neurosurgery. -hypertension; on HCTZ- will monitor and adjust the regimen as needed. -DVT prophylaxis; per neurosurgery. Discharge Planning per neurosurgery and when pain is better controlled. Avila Lam MD Jun 16, 2017 11:25
--- NOTE | 2017-06-16 13:46 | RADRPT ---
EXAM DATE/TIME: 06/16/2017 13:20 [place] COMPARISON: SPINE LUMBAR LTD (AP & LAT), June 13, 2017, 8:47. CT LUMBAR SPINE W/O CONTRAST, June 06, 11:24. INDICATIONS : Low back pain MEDICAL HISTORY : None. SURGICAL HISTORY : Fusion, lumbar. Cholecystectomy. Spinal cord stimulator. ENCOUNTER: Subsequent ACUITY: 4 - 6 days PAIN SCORE: 9/10 LOCATION: Lspine FINDINGS: Patient has had a recent discectomy and fusion procedure with interbody and left posterior instrument ation at L3/L4. A more remote and solid appearing fusion is seen at L4/L5. No fractures or subluxatio ns are demonstrated. A mild dextroconvex curvature is again seen. 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 There is moderate disc space narrowing and moderate bilateral facet osteoarthritis at L2/L3. Sacral and lumbar spine stimulators are again noted. CONCLUSION: 1. Surgical and degenerative changes as above. 2. No acute abnormalities are demonstrated. Cipriano Matthews MD on June 16, 2017 at 13:42 Board Certified Radiologist. This report was verified electronically.
--- NOTE | 2017-06-16 14:06 | HHI.NSPN ---
History Interval History 06/14 Patient complains of back pain. Able to walk. +flatus 06/15 patient endorses severe back spasm that began last night. He is unable to find a comfortable position. 06/16 Patient complains of severe 10/10 back pain with radiation to left upper thigh. The pain feels like sharp pins and needles Exam Results Vital Signs Date Time Temp Pulse Resp B/P (MAP) Pulse Ox O2 Delivery O2 Flow Rate FiO2 06/16/17 11:21 95.9 87 18 137/80 (99) 92 06/16/17 08:13 Room Air 06/15/17 16:00 21 06/13/17 23:46 2.00 Intake and Output 06/16/17 06/16/17 06/17/17 08:00 16:00 00:00 Intake Total 240 ml Output Total 550 ml Balance -310 ml Physical Examination Patient is alert and oriented 3. He appears to be in severe distress Speech is clear, appropriate and non-aphasic Motor strength testing 5/5 HF/KE/KF/DF/PF/EHL bilaterally Sensation grossly intact to light touch Incision dressing dry, intact, with a small amount of dried blood Lab, Micro, Other Results Allergies Coded Allergies Type Severity Reaction Last Updated Verified MRI PRECAUTION Allergy Severe PT HAS IMPLANTED NERVE STIMULATOR (MEDTRONIC) Yes hydromorphone Allergy Severe 06/13/17 No meperidine Allergy Unknown 06/13/17 No prochlorperazine Adverse Reaction Severe AGITATION 06/13/17 No Recent Impressions Lumbar Spine X-Ray 06/16/17 0000 Signed Impressions: Service Date/Time: Friday, June 16, 2017 13:20 - CONCLUSION: 1. Surgical and degenerative changes as above. 2. No acute abnormalities are demonstrated. Cipriano Matthews MD 06/14/17 06/14/17 06/15/17 06/15/17 06/16/17 06/16/17 06:00 18:00 06:00 18:00 06:00 18:00 Intake Total 1718 ml 1244.7 ml 840 ml 720 ml 240 ml 240 ml Output Total 1450 ml 1550 ml 950 ml 1250 ml 450 ml 550 ml Balance 268 ml -305.3 ml -110 ml -530 ml -210 ml -310 ml Intake Oral 1080 ml 480 ml 480 ml 720 ml 240 ml 240 ml IV Total 638 ml 764.7 ml 360 ml Output Urine Total 1450 ml 1550 ml 950 ml 1250 ml 450 ml 550 ml # Voids 2 # Bowel Movements 0 0 0 0 0 0 Laboratory Tests Test 06/13/17 18:18 06/15/17 06:52 Blood Urea Nitrogen 20 MG/DL 15 MG/DL Creatinine 1.38 MG/DL 0.96 MG/DL Random Glucose 140 MG/DL 92 MG/DL Calcium Level 8.6 MG/DL 7.7 MG/DL Magnesium Level 1.8 MG/DL Sodium Level 135 MEQ/L 136 MEQ/L Potassium Level 4.2 MEQ/L 3.8 MEQ/L Chloride Level 102 MEQ/L 102 MEQ/L Carbon Dioxide Level 25.4 MEQ/L 29.2 MEQ/L Anion Gap 8 MEQ/L 5 MEQ/L Estimat Glomerular Filtration Rate 52 ML/MIN 79 ML/MIN Orders Procedure Category Date Status Time [facility] 06/13/17 Complete Information 14:30 Attending Discharge DISCHARGE 06/15/17 Transmitted Order Document BETTE 06/13/17 In Process Anticoagulant Alert BETTE 06/13/17 In Process ^ Sling BETTE 06/13/17 In Process Resp Oxygen Venkat C RSP 06/13/17 Complete Titrat 1-4 L Corset Quick Draw ORTHO 06/13/17 Logged Class Iv Pacu Ea 30 [facility] 06/13/17 Complete MIN General/Pacu [facility] 06/13/17 Complete Post [facility]esthesia [facility]17 Complete Pacu Med Holding [facility] 06/13/17 Complete Hourly Collar [place] [facility]THO 06/13/17 Complete Brace Quick Draw ORTHO 06/13/17 Complete Corset Sling Cradle Arm ORTHO 06/14/17 Complete Basic Metabolic Panel LAB 06/15/17 Complete (Bmp) 06:00 ^ Remove Family Physician BETTE 06/15/17 In Process 13:38 Diazepam (Valium) MED 06/15/17 In Process 14:30 Spine, Lumbar - Ltd RADDIAG 06/16/17 Resulted (Ap & Lat) Vital Signs Date Time Temp Pulse Resp B/P (MAP) Pulse Ox O2 Delivery O2 Flow Rate FiO2 06/16/17 11:21 95.9 87 18 137/80 (99) 92 06/16/17 08:13 Room Air 06/16/17 08:13 95.6 83 18 143/83 (103) 92 06/16/17 04:09 96.6 94 18 156/86 (109) 96 06/16/17 00:24 97.0 79 18 113/75 (88) 96 06/15/17 20:30 98.0 74 18 140/76 (97) 96 06/15/17 16:00 93 21 06/15/17 15:37 96.2 83 18 117/82 (94) 92 06/15/17 11:33 96.3 81 18 134/78 (96) 93 06/15/17 10:45 18 06/15/17 10:41 18 06/15/17 08:00 97.4 80 18 128/74 (92) 95 06/15/17 06:00 18 06/15/17 04:00 97.9 91 20 141/83 (102) 95 06/15/17 01:33 17 06/15/17 00:00 96.1 78 18 136/76 (96) 96 06/14/17 23:49 Room Air 06/14/17 22:00 18 06/14/17 20:00 98.4 83 20 133/71 (91) 93 06/14/17 17:06 98 06/14/17 16:00 98.9 74 18 121/73 (89) 95 06/14/17 14:42 18 06/14/17 14:37 18 06/14/17 12:00 96.1 83 18 116/75 (89) 98 06/14/17 08:00 98.5 76 18 107/70 (82) 96 06/14/17 06:00 17 06/14/17 04:00 97.1 83 18 123/58 (79) 93 06/14/17 03:13 18 06/14/17 00:00 96.3 93 18 122/63 (82) 92 06/13/17 23:50 17 06/13/17 23:46 Nasal Cannula 2.00 06/13/17 22:00 18 06/13/17 20:00 97.5 99 17 112/76 (88) 95 06/13/17 19:42 17 06/13/17 16:45 97.2 93 18 124/66 (85) 96 06/13/17 15:50 97.6 87 16 122/60 (80) 96 Nasal Cannula 2 06/13/17 15:00 89 16 119/59 (79) 95 Nasal Cannula 2 06/13/17 14:31 15 06/13/17 14:30 92 16 113/56 (75) 95 Nasal Cannula 2 Medical Decision Making Impression and Plan POD 3 s/p L3-L4 TLIF Neuro: Patient is doing well with no focal neurologic deficit. He is ambulating without any difficulties. 12/ neurologically stable, but is symptomatic from severe muscle spasm. We will discontinue Flexeril and start Valium. 12/10 intact motor function but has new radicular pain Integument: Intact. May wash incision on POD3 Pain: Symptomatic due to muscle spasm / Valium, ice/heat application DC CHEMISTRY PROFESSOR Initiate [place] 12/10 Poorly controlled radicular back pain. Continue [place], start Gabapentin Constipation versus postoperative ileus: Encourage ambulation. Aggressive bowel regimen. Dispo: We will delay discharge until symptoms are better controlled Tray Hi MD Jun 16, 2017 14:06
[2017-06-16] MEDS: GABAPENTIN 300 MG CAP PO SCH ×2 (14:22→21:25)
[2017-06-16] MEDS: ENOXAPARIN SODIUM 40 MG/0.4 ML SYRINGE SQ SCH (14:23)
[2017-06-16 15:39] VITALS: BP 121/83; PULSE 88; RESP 18; TEMP 95.5; O2SAT 95
[2017-06-16 20:55] VITALS: BP 148/83; PULSE 82; RESP 18; TEMP 97.9; O2SAT 95
[2017-06-16] MEDS: DOXEPIN HCL 25 MG CAP PO PRN (23:19)
[2017-06-17 00:06] VITALS: BP 133/82; PULSE 76; RESP 18; TEMP 97.6; O2SAT 97
[2017-06-17] MEDS: NS + KCL 20 MEQ INJ 1,000 ML IV SCH ×2 (04:23→16:53)
[2017-06-17] MEDS: ACETAMINOPHEN/HYDROcodone 325 MG/10 MG TAB PO PRN ×4 (06:08→21:54)
[2017-06-17] MEDS: GABAPENTIN 300 MG CAP PO SCH ×3 (06:09→21:52)
[2017-06-17] MEDS: DIAZEPAM 5 MG TAB PO PRN (06:12)
[2017-06-17] MEDS: SODIUM CHLOR 0.9% 1000 ML INJ 1,000 ML IV SCH (07:00)
[2017-06-17 08:00] VITALS: BP 138/88; PULSE 80; RESP 18; TEMP 96.6; O2SAT 95
[2017-06-17] MEDS: FUROSEMIDE 20 MG TAB PO SCH ×2 (08:44→21:52)
[2017-06-17] MEDS: DULoxetine HCl DR 30 MG CAP PO SCH (08:45)
[2017-06-17] MEDS: HYDROCHLOROTHIAZIDE 12.5 MG CAP PO SCH (08:45)
[2017-06-17] MEDS: DOCUSATE SODIUM 100 MG CAP PO SCH ×2 (08:45→21:52)
[2017-06-17] MEDS: SPIRONOLACTONE 25 MG TAB PO SCH (08:45)
[2017-06-17] MEDS: PANTOPRAZOLE SOD 40 MG DELAYED RELEASE TAB PO SCH (08:45)
[2017-06-17] MEDS: TAMSULOSIN HCL 0.4 MG CAP PO SCH (08:45)
[2017-06-17] MEDS: ENOXAPARIN SODIUM 40 MG/0.4 ML SYRINGE SQ SCH (08:46)
[2017-06-17] MEDS: LACTULOSE SYRUP 20 GM/30 ML CUP PO SCH (08:46)
[2017-06-17] MEDS: SODIUM CHLORIDE 0.9% FLUSH 10 ML FLUSH IV FLUSH SCH ×2 (09:00→22:04)
--- NOTE | 2017-06-17 10:22 | HHI.NSPN ---
(Fatmata Kaiser) Note Status Status: Progress Note (Fatmata Kaiser) Interval History Interval History 06/14 Patient complains of back pain. Able to walk. +flatus 06/15 patient endorses severe back spasm that began last night. He is unable to find a comfortable position. 06/16 Patient complains of severe 04/16 back pain with radiation to left upper thigh. The pain feels like sharp pins and needles 06/17: persistent severe left thigh pain following L4 distribution reports pain is debilitating. xrays yesterday unremarkable (Fatmata Kaiser) Labs, Micro, & Vital Signs Results Date Time Temp Pulse Resp B/P (MAP) Pulse Ox O2 Delivery O2 Flow Rate FiO2 06/17/17 08:00 96.6 80 18 138/88 (105) 95 06/17/17 00:06 97.6 76 18 133/82 (99) 97 06/16/17 20:55 97.9 82 18 148/83 (104) 95 06/16/17 15:39 95.5 88 18 121/83 (96) 95 06/16/17 11:21 95.9 87 18 137/80 (99) 92 Constitutional Vital Signs Date Time Temp Pulse Resp B/P (MAP) Pulse Ox O2 Delivery O2 Flow Rate FiO2 06/17/17 08:00 96.6 80 18 138/88 (105) 95 06/17/17 00:06 97.6 76 18 133/82 (99) 97 06/16/17 20:55 97.9 82 18 148/83 (104) 95 06/16/17 15:39 95.5 88 18 121/83 (96) 95 06/16/17 11:21 95.9 87 18 137/80 (99) 92 (Fatmata Kaiser) Review of Systems Constitutional: DENIES: Fever Gastrointestinal: DENIES: Nausea, Vomiting Genitourinary: DENIES: Urinary incontinence Musculoskeletal: COMPLAINS OF: Back pain Neurologic: COMPLAINS OF: Paresthesias (Fatmata Kaiser) Physical Exam Patient is alert and oriented 3. He appears to be milldy uncomfortable with complaints of radicular pain Speech is clear, appropriate and non-aphasic Motor strength testing 5/5 bilateral iliopsoas, quads, hamstrings, plantarflexion, dorsiflexion, EHL Sensation grossly intact to light touch No ankle clonus plantars flexors b/l Incision dressing dry, intact, with a small amount of dried blood (Fatmata Kaiser) Medications Current Medications Current Medications Medications (Trade) Dose Ordered Sig/Nomi Route PRN Reason Start Time Stop Time Status Last Admin Dose Admin Sodium Chloride 1,000 ml @ 30 mls/hr Q24H IV 06/13/17 07:00 Doxepin HCl (SINEquan) 50 mg HS PRN PO INSOMNIA 06/13/17 13:00 06/16/17 23:19 Furosemide (Lasix) 20 mg BID PO 06/13/17 21:00 06/17/17 08:44 Spironolactone (Aldactone) 25 mg DAILY PO 06/14/17 09:00 06/17/17 08:45 Tamsulosin HCl (Flomax) 0.4 mg DAILY PO 06/14/17 09:00 06/17/17 08:45 Patient Own Medication PT OWN MED: (Buprenorphine Patch 168... Q7D TOPICAL 06/13/17 14:15 Future Hold Pantoprazole Sodium (Protonix) 40 mg DAILY PO 06/14/17 09:00 06/17/17 08:45 Potassium Chloride/Sodium Chloride 1,000 ml @ 80 mls/hr [id number] IV 06/13/17 12:53 06/15/17 11:36 Sodium Chloride (NS Flush) 2 ml UNSCH PRN IV FLUSH FLUSH AFTER USING IV ACCESS 06/13/17 13:00 Sodium Chloride (NS Flush) 2 ml BID IV FLUSH 06/13/17 21:00 06/16/17 21:25 Docusate Sodium (Colace) 100 mg BID PO 06/13/17 21:00 06/17/17 08:45 Magnesium Hydroxide (Milk Of Magnesia Liq) 30 ml DAILY PRN PO Mild-moderate constipation 06/13/17 13:00 06/16/17 08:12 Al Hydrox/Mg Hydrox/Simethicone (Mag-Al Plus Susp Liq) 30 ml Q6H PRN PO DYSPEPSIA 06/13/17 13:00 Ondansetron HCl (Zofran Inj) 4 mg Q6H PRN IV PUSH NAUSEA OR VOMITING 06/13/17 13:00 Promethazine HCl (Phenergan Inj) 25 mg Q4H PRN IM NAUSEA OR VOMITING 06/13/17 13:00 Calcium Gluconate 1 gm/Sodium Chloride 110 ml @ 110 mls/hr UNSCH PRN IV SEE LABEL COMMENTS 06/13/17 13:00 Potassium Chloride 100 ml @ 50 mls/hr UNSCH PRN IV POTASSIUM LESS THAN 4 06/13/17 13:00 Magnesium Sulfate 2 gm/Sodium Chloride 104 ml @ 100 mls/hr UNSCH PRN IV MAGNESIUM LESS THAN 2 06/13/17 13:00 Acetaminophen/ Hydrocodone Bitart ([place] 10-325 Mg) 1 tab Q4H PRN PO PAIN SCALE 1 TO 5 06/13/17 13:00 06/14/17 10:05 Acetaminophen/ Hydrocodone Bitart ([place] 10-325 Mg) 2 tab Q4H PRN PO PAIN SCALE 6 TO 10 06/13/17 13:00 06/17/17 06:08 Clonidine (Catapres) 0.1 mg Q6H PRN PO SYS BP GREATER THAN 170 MMHG 06/13/17 13:00 Acetaminophen (Tylenol) 650 mg Q4H PRN PO TEMPERATURE > 101.5 F 06/13/17 13:00 Menthol ([place] Rober) 1 lozenge UNSCH PRN BUCCAL SORE THROAT 06/13/17 13:00 Albuterol Sulfate (Albuterol Neb) 2.5 mg Q4HR NEB PRN NEB WHEEZING 06/13/17 13:00 Lactulose (Lactulose Liq) 30 ml DAILY PO 06/14/17 09:00 06/17/17 08:46 Hydrochlorothiazide (Microzide) 12.5 mg DAILY PO 06/14/17 09:00 06/17/17 08:45 Duloxetine HCl (Cymbalta Dr) 30 mg DAILY PO 06/14/17 09:00 06/17/17 08:45 Diazepam (Valium) 5 mg Q6H PRN PO MUSCLE SPASM 06/15/17 14:30 06/17/17 06:12 Enoxaparin Sodium (Lovenox Inj) 40 mg DAILY SQ 06/16/17 14:00 06/17/17 08:46 Gabapentin (Neurontin) 300 mg Q8HR PO 06/16/17 14:00 06/17/17 06:09 (aFtmata Kaiser) Medical Decision Making MDM Remarks POD 4 s/p L3-L4 TLIF, surgical pain controlled, intact motor function but with persistent severe radicular pain (Fatmata Kaiser) Plan Plan Remarks CT L spine to assess persistent severe radicular pain, add IV dilauded for breakthrough pain, cont valium, Neurontin cont mobilize OOB medical management following, appreciate assistance (Fatmata Kaiser) Attending Statement The exam, history, and the medical decision-making described in the above note were completed with the assistance of the mid-level provider. I reviewed and agree with the findings presented. I attest that I had a [id number] encounter with the patient on the same day, and personally performed and documented my assessment and findings in the medical record. (Laurent Moreno MD) Fatmata Kaiser Jun 17, 2017 10:22 Laurent Moreno MD Jun 19, 2017 10:19
--- NOTE | 2017-06-17 10:52 | HHI.PR ---
Subjective Remarks in no acute distress. still complaining of severe low back pain and now is complaining of some pain to the left leg as well. no fever. Objective Vitals Vital Signs Date Time Temp Pulse Resp B/P (MAP) Pulse Ox O2 Delivery O2 Flow Rate FiO2 06/17/17 08:00 96.6 80 18 138/88 (105) 95 06/17/17 00:06 97.6 76 18 133/82 (99) 97 06/16/17 20:55 97.9 82 18 148/83 (104) 95 06/16/17 15:39 95.5 88 18 121/83 (96) 95 06/16/17 11:21 95.9 87 18 137/80 (99) 92 I/O 06/16/17 06/16/17 06/16/17 06/17/17 06/17/17 06/17/17 07:00 15:00 23:00 07:00 15:00 23:00 Intake Total 240 ml 960 ml 240 ml 240 ml Output Total 550 ml 300 ml 1500 ml Balance -310 ml 960 ml -60 ml -1260 ml Intake Oral 240 ml 960 ml 240 ml 240 ml Output Urine Total 550 ml 300 ml 700 ml Gastric Drainage Total 800 ml # Voids 6 # Bowel Movements 0 2 0 0 Result Diagram: 06/13/17 1340 06/15/17 0652 Imaging Last Impressions Lumbar Spine X-Ray 06/16/17 0000 Signed Impressions: Service Date/Time: Friday, June 16, 2017 13:20 - CONCLUSION: 1. Surgical and degenerative changes as above. 2. No acute abnormalities are demonstrated. Cipriano Matthews MD Objective Remarks GENERAL: in no respiratory distress but uncomfortable with the back pain. CARDIOVASCULAR: Regular rate and regular rhythm without murmurs, gallops, or rubs. RESPIRATORY: Clear to auscultation. Breath sounds equal bilaterally. No wheezes , rales, or rhonchi. GASTROINTESTINAL: Abdomen soft, non-tender, nondistended. Normal, active bowel sounds MUSCULOSKELETAL: Extremities without clubbing, cyanosis, or edema. NEURO: Alert & Oriented x4 to person, place, time, situation. Moves all ext x4 Medications and IVs Inpatient Medications Acetaminophen (Tylenol) 650 mg Q4H PRN PO TEMPERATURE > 101.5 F; Start at 13:00 Acetaminophen/ Hydrocodone Bitart ([place] 10-325 Mg) 2 tab Q4H PRN PO PAIN SCALE 6 TO 10 Last administered on 06/17/17 06:08; Start 06/13/17 at 13:00 Al Hydrox/Mg Hydrox/Simethicone (Mag-Al Plus Susp Liq) 30 ml Q6H PRN PO DYSPEPSIA; Start 06/13/17 at 13:00 Albuterol Sulfate (Albuterol Neb) 2.5 mg Q4HR NEB PRN NEB WHEEZING; Start 06/13 at 13:00 Calcium Gluconate 1 gm/Sodium Chloride 110 ml @ 110 mls/hr UNSCH PRN IV SEE LABEL COMMENTS; Start 06/13/17 at 13:00 Cefazolin Sodium 1000 mg/Sodium Chloride 100 ml @ 200 mls/hr Q8H IV Last administered on 06/14/17 05:52; Start 06/13/17 at 15:00; Stop 06/14/17 at 07:29 ; Status DC Chlorhexidine Gluconate (Chlorhexidine 2% Cloth) 3 pack EXECUTIVE RECRUITER PRN TOPICAL SEE LABEL COMMENTS Last administered on 06/13/17 06:45; Start 06/13/17 at 07:00 ; Stop 06/16/17 at 06:59; Status DC Clonidine (Catapres) 0.1 mg Q6H PRN PO SYS BP GREATER THAN 170 MMHG; Start 06/13/17 at 13:00 Cyclobenzaprine HCl (Flexeril) 10 mg TID PO Last administered on 06/15/17 11: 34; Start 06/13/17 at 13:00; Stop 06/15/17 at 14:14; Status DC Diazepam (Valium) 5 mg Q6H PRN PO MUSCLE SPASM Last administered on 06/17/17 06:12; Start 06/15/17 at 14:30 Diphenhydramine HCl (Benadryl Inj) 25 mg Q6H PRN IV PUSH ITCHING; Start at 13:00; Stop 06/15/17 at 14:16; Status DC Diphenhydramine HCl (Benadryl) 25 mg Q6H PRN PO ITCHING; Start 06/13/17 at 13: 00; Stop 06/15/17 at 14:16; Status DC Docusate Sodium (Colace) 100 mg BID PO Last administered on 06/17/17 08:45; Start 06/13/17 at 21:00 Doxepin HCl (SINEquan) 50 mg HS PRN PO INSOMNIA Last administered on 23:19; Start 06/13/17 at 13:00 Duloxetine HCl (Cymbalta Dr) 30 mg DAILY PO Last administered on 06/17/17 08: 45; Start 06/14/17 at 09:00 Enoxaparin Sodium (Lovenox Inj) 40 mg DAILY SQ Last administered on 06/17/17 08:46; Start 06/16/17 at 14:00 Furosemide (Lasix) 20 mg BID PO Last administered on 06/17/17 08:44; Start 06/13/17 at 21:00 Gabapentin (Neurontin) 300 mg Q8HR PO Last administered on 06/17/17 06:09; Start 06/16/17 at 14:00 Hydrochlorothiazide (Microzide) 12.5 mg DAILY PO Last administered on 08:45; Start 06/14/17 at 09:00 Hydromorphone HCl (Dilaudid Pf Inj) 1 mg Q4HR PRN IV PUSH breakthrough pain; Start 06/17/17 at 10:30 Insulin Human Regular (NovoLIN R INJ) See Protocol Table ... EXECUTIVE RECRUITER PRN SQ SEE PROTOCOL TABLE; Start 06/13/17 at 07:00; Stop 06/16/17 at 06:59; Status DC Lactated Ringer's 1,000 ml @ 30 mls/hr Q24H PRN IV SEE LABEL COMMENTS Last administered on 06/13/17 06:55; Start 06/13/17 at 07:00; Stop 06/16/17 at 06: 59; Status DC Lactulose (Lactulose Liq) 30 ml DAILY PO Last administered on 06/17/17 08:46 ; Start 06/14/17 at 09:00 Magnesium Hydroxide (Milk Of Magnesia Liq) 30 ml DAILY PRN PO Mild-moderate constipation Last administered on 06/16/17 08:12; Start 06/13/17 at 13:00 Magnesium Sulfate 2 gm/Sodium Chloride 104 ml @ 100 mls/hr UNSCH PRN IV MAGNESIUM LESS THAN 2; Start 06/13/17 at 13:00 Menthol (H[place] Rober) 1 lozenge UNSCH PRN BUCCAL SORE THROAT; Start 06/13/17 at 13:00 Metoprolol Tartrate (Lopressor) 25 mg EXECUTIVE RECRUITER PRN PO SEE LABEL COMMENTS; Start 06/13/17 at 07:00; Stop 06/16/17 at 06:59; Status DC Miscellaneous Information ALL NURSING DEPARTME... UNSCH PRN .XX SEE LABEL COMMENTS; Start 06/13/17 at 14:30; Stop 06/14/17 at 14:29; Status DC Morphine Sulfate (Morphine 1 Mg/ ml FORENSIC ARTIST) 30 mg UNSCH IV Last administered on 10:45; Start 06/13/17 at 13:00; Stop 06/15/17 at 14:16; Status DC Naloxone HCl (Narcan Inj) 0.4 mg UNSCH PRN IV PUSH RESPIRATORY RATE LESS THAN 10; Start 06/13/17 at 13:00; Stop 06/13/17 at 14:10; Status DC Non-Formulary Medication 37.5 mg DAILY PO ; Start 06/14/17 at 09:00; Stop at 09:00; Status DC Ondansetron HCl (Zofran Inj) 4 mg Q6H PRN IV PUSH NAUSEA OR VOMITING; Start at 13:00 Pantoprazole Sodium (Protonix) 40 mg DAILY PO Last administered on 06/17/17 08:45; Start 06/14/17 at 09:00 Patient Own Medication PT OWN MED: (Buprenorphine Patch 168... Q7D TOPICAL ; Start 06/13/17 at 14:15; Status Future Hold FORENSIC ARTIST Dosage Infused (Pha) 1 Q8HR .XX Last administered on 06/15/17 10:41; Start 06/13/17 at 14:00; Stop 06/15/17 at 14:16; Status DC Potassium Chloride/Sodium Chloride 1,000 ml @ 80 mls/hr [id number] IV Last administered on 06/15/17 11:36; Start 06/13/17 at 12:53 Potassium Chloride 100 ml @ 50 mls/hr UNSCH PRN IV POTASSIUM LESS THAN 4; Start 06/13/17 at 13:00 Povidone Iodine (Betadine 5% Antisepsis Kit) 1 applic EXECUTIVE RECRUITER PRN EACH NARE SEE LABEL COMMENTS Last administered on 06/13/17 07:33; Start 06/13/17 at 07:00 ; Stop 06/16/17 at 06:59; Status DC Promethazine HCl (Phenergan Inj) 25 mg Q4H PRN IM NAUSEA OR VOMITING; Start at 13:00 Sodium Chloride (NS Flush) 2 ml BID IV FLUSH Last administered on 06/16/17 21 :25; Start 06/13/17 at 21:00 Spironolactone (Aldactone) 25 mg DAILY PO Last administered on 06/17/17 08:45 ; Start 06/14/17 at 09:00 Tamsulosin HCl (Flomax) 0.4 mg DAILY PO Last administered on 06/17/17 08:45; Start 06/14/17 at 09:00 Vancomycin HCl 1000 mg/Sodium Chloride 250 ml @ 250 mls/hr EXECUTIVE RECRUITER IV ; Start 06/13/17 at 07:00; Stop 06/16/17 at 13:00; Status DC A/P Assessment and Plan A/P - chronic low back pain- s/p L3-4 Laminectomy- now with worsening and persistent back pain after the surgery. continue pain control with norco- started on IV Dilauduid for breakthrough pain- awaiting CT lumbar spine- neurosurgery following. -hypertension; on HCTZ- will monitor and adjust the regimen as needed. -DVT prophylaxis; per neurosurgery. Discharge Planning per neurosurgery and when pain is better controlled. Avila Lam MD Jun 17, 2017 10:52
[2017-06-17 12:00] VITALS: BP 129/86; PULSE 79; RESP 18; TEMP 95.9; O2SAT 93
[2017-06-17] MEDS: HYDROmorphone HCL PF 1 MG/ML VIAL IV PUSH PRN (12:32)
[2017-06-17 16:00] VITALS: BP 124/84; PULSE 90; RESP 18; TEMP 97; O2SAT 94
--- NOTE | 2017-06-17 19:45 | RADRPT ---
EXAM DATE/TIME: 06/17/2017 19:09 [facility] COMPARISON: No previous studies available for comparison. INDICATIONS : Low back pain post operative. RADIATION DOSE: 48.88 CTDIvol (mGy) MEDICAL HISTORY : Cardiovascular disease. Hypertension. SURGICAL HISTORY : cervical fusion, lumbar fusion. ENCOUNTER: Initial ACUITY: 1 day PAIN SCALE: 6/10 LOCATION: Bilateral lumbar TECHNIQUE: Volumetric scanning of the lumbar spine was performed. Multiplanar reconstructions in the sagittal, coronal and oblique axial planes were performed. Using automated exposure control and adjustment of the mA and/or kV according to patient size, radiation dose was kept as low as reasonably achievable t o obtain optimal diagnostic quality images. DICOM format image data is available electronically for review and comparison. FINDINGS: Comparison is June 06. At T12-L1 there is no significant canal stenosis At L1-2 no significant stenosis. L2-3 there is a broad-based disc osteophyte complex and facet arthropathy, worse on the left side wit h left-sided foraminal encroachment. Findings stable from June 06. L3-4: There is now left-sided transpedicular screw and eric fixation across this level with a left laminecto my. There is some high density fluid, locules of air and soft tissue around the laminectomy site. The thecal sac or does appear to have at least moderate to severe effacement. L4-5: Right-sided eric and screw fixation at this level. No significant central canal stenosis L5-S1: Posterior disc osteophyte complex with bilateral foraminal stenosis. CONCLUSION: 1. Compared with June 06 there is now left sided transpedicular screw eric fixation across L3-4 wi th locules of air, high density fluid material and some increased soft tissue around the surgical sit e resulting in at least moderate to severe effacement of the thecal sac at this level. Remainder of t he levels are similar to June 06. Fawad Barrett MD on June 17, 2017 at 19:36 Board Certified Radiologist. This report was verified electronically.
[2017-06-17 20:00] VITALS: BP 152/81; PULSE 86; RESP 15; TEMP 98.3; O2SAT 95
[2017-06-17] MEDS: DOXEPIN HCL 25 MG CAP PO PRN (22:44)
[2017-06-18] VITALS (7 sets, daily range): BP systolic 118–138; BP diastolic 71–88; PULSE 71–92; RESP 17–18; TEMP 96.5–97.2; O2SAT 92–95
[2017-06-18] MEDS: ACETAMINOPHEN/HYDROcodone 325 MG/10 MG TAB PO PRN ×5 (01:57→22:24)
[2017-06-18] MEDS: NS + KCL 20 MEQ INJ 1,000 ML IV SCH ×2 (05:23→17:53)
[2017-06-18] MEDS: GABAPENTIN 300 MG CAP PO SCH ×3 (05:59→21:17)
[2017-06-18] MEDS: SODIUM CHLOR 0.9% 1000 ML INJ 1,000 ML IV SCH (07:00)
[2017-06-18] MEDS: LACTULOSE SYRUP 20 GM/30 ML CUP PO SCH (09:00)
[2017-06-18] MEDS: FUROSEMIDE 20 MG TAB PO SCH ×2 (09:20→21:17)
[2017-06-18] MEDS: DULoxetine HCl DR 30 MG CAP PO SCH (09:20)
[2017-06-18] MEDS: HYDROCHLOROTHIAZIDE 12.5 MG CAP PO SCH (09:20)
[2017-06-18] MEDS: ENOXAPARIN SODIUM 40 MG/0.4 ML SYRINGE SQ SCH (09:20)
[2017-06-18] MEDS: PANTOPRAZOLE SOD 40 MG DELAYED RELEASE TAB PO SCH (09:20)
[2017-06-18] MEDS: TAMSULOSIN HCL 0.4 MG CAP PO SCH (09:20)
[2017-06-18] MEDS: HYDROmorphone HCL PF 1 MG/ML VIAL IV PUSH PRN (09:21)
[2017-06-18] MEDS: SPIRONOLACTONE 25 MG TAB PO SCH (09:21)
[2017-06-18] MEDS: DOCUSATE SODIUM 100 MG CAP PO SCH ×2 (09:21→21:17)
[2017-06-18] MEDS: SODIUM CHLORIDE 0.9% FLUSH 10 ML FLUSH IV FLUSH SCH ×2 (09:21→21:18)
--- NOTE | 2017-06-18 13:21 | HHI.PR ---
Subjective Remarks in no acute distress. pain is better today and looks more comfortable. has numbness of the left leg. had urinary retention earlier today. d/w the RN. Objective Vitals Vital Signs Date Time Temp Pulse Resp B/P (MAP) Pulse Ox O2 Delivery O2 Flow Rate FiO2 06/18/17 12:00 97.0 90 18 138/81 (100) 94 06/18/17 09:51 18 06/18/17 08:00 96.5 72 18 130/84 (99) 92 06/18/17 04:00 97.2 71 18 124/80 (95) 94 06/18/17 00:30 97.0 75 18 136/88 (104) 93 06/17/17 22:44 18 06/17/17 20:00 98.3 86 15 152/81 (104) 95 06/17/17 16:00 97.0 90 18 124/84 (97) 94 I/O 06/17/17 06/17/17 06/17/17 06/18/17 06/18/17 06/18/17 07:00 15:00 23:00 07:00 15:00 23:00 Intake Total 240 ml 720 ml 480 ml Output Total 1500 ml 600 ml 450 ml Balance -1260 ml 720 ml -120 ml -450 ml Intake Oral 240 ml 720 ml 480 ml Output Urine Total 700 ml 600 ml 450 ml Gastric Drainage Total 800 ml Bladder Scan Volume Amount 923 ml # Voids 6 # Bowel Movements 0 2 0 Result Diagram: 06/15/17 0652 Imaging Last Impressions Lumbar Spine CT 06/17/17 0000 Signed Impressions: Service Date/Time: Saturday, June 17, 2017 19:09 - CONCLUSION: 1. Compared with June 06 there is now left sided transpedicular screw eric fixation across L3-4 with locules of air, high density fluid material and some increased soft tissue around the surgical site resulting in at least moderate to severe effacement of the thecal sac at this level. Remainder of the levels are similar to June 06. Fawad Barrett MD Lumbar Spine X-Ray 06/16/17 0000 Signed Impressions: Service Date/Time: Friday, June 16, 2017 13:20 - CONCLUSION: 1. Surgical and degenerative changes as above. 2. No acute abnormalities are demonstrated. Cipriano Matthews MD Objective Remarks GENERAL: in no respiratory distress but uncomfortable with the back pain. CARDIOVASCULAR: Regular rate and regular rhythm without murmurs, gallops, or rubs. RESPIRATORY: Clear to auscultation. Breath sounds equal bilaterally. No wheezes , rales, or rhonchi. GASTROINTESTINAL: Abdomen soft, non-tender, nondistended. Normal, active bowel sounds MUSCULOSKELETAL: Extremities without clubbing, cyanosis, or edema. NEURO: Alert & Oriented x4 to person, place, time, situation. Moves all ext x4 Medications and IVs Inpatient Medications Acetaminophen (Tylenol) 650 mg Q4H PRN PO TEMPERATURE > 101.5 F; Start at 13:00 Acetaminophen/ Hydrocodone Bitart ([place] 10-325 Mg) 2 tab Q4H PRN PO PAIN SCALE 6 TO 10 Last administered on 06/18/17 12:38; Start 06/13/17 at 13:00 Al Hydrox/Mg Hydrox/Simethicone (Mag-Al Plus Susp Liq) 30 ml Q6H PRN PO DYSPEPSIA; Start 06/13/17 at 13:00 Albuterol Sulfate (Albuterol Neb) 2.5 mg Q4HR NEB PRN NEB WHEEZING; Start 06/13 at 13:00 Calcium Gluconate 1 gm/Sodium Chloride 110 ml @ 110 mls/hr UNSCH PRN IV SEE LABEL COMMENTS; Start 06/13/17 at 13:00 Cefazolin Sodium 1000 mg/Sodium Chloride 100 ml @ 200 mls/hr Q8H IV Last administered on 06/14/17 05:52; Start 06/13/17 at 15:00; Stop 06/14/17 at 07:29 ; Status DC Chlorhexidine Gluconate (Chlorhexidine 2% Cloth) 3 pack MACHINE OPERATOR HOP WORKER PRN TOPICAL SEE LABEL COMMENTS Last administered on 06/13/17 06:45; Start 06/13/17 at 07:00 ; Stop 06/16/17 at 06:59; Status DC Clonidine (Catapres) 0.1 mg Q6H PRN PO SYS BP GREATER THAN 170 MMHG; Start 06/13/17 at 13:00 Cyclobenzaprine HCl (Flexeril) 10 mg TID PO Last administered on 06/15/17 11: 34; Start 06/13/17 at 13:00; Stop 06/15/17 at 14:14; Status DC Diazepam (Valium) 5 mg Q6H PRN PO MUSCLE SPASM Last administered on 06/17/17 06:12; Start 06/15/17 at 14:30 Diphenhydramine HCl (Benadryl Inj) 25 mg Q6H PRN IV PUSH ITCHING; Start at 13:00; Stop 06/15/17 at 14:16; Status DC Diphenhydramine HCl (Benadryl) 25 mg Q6H PRN PO ITCHING; Start 06/13/17 at 13: 00; Stop 06/15/17 at 14:16; Status DC Docusate Sodium (Colace) 100 mg BID PO Last administered on 06/18/17 09:21; Start 06/13/17 at 21:00 Doxepin HCl (SINEquan) 50 mg HS PRN PO INSOMNIA Last administered on 22:44; Start 06/13/17 at 13:00 Duloxetine HCl (Cymbalta Dr) 30 mg DAILY PO Last administered on 06/18/17 09: 20; Start 06/14/17 at 09:00 Enoxaparin Sodium (Lovenox Inj) 40 mg DAILY SQ Last administered on 06/18/17 09:20; Start 06/16/17 at 14:00 Furosemide (Lasix) 20 mg BID PO Last administered on 06/18/17 09:20; Start 06/13/17 at 21:00 Gabapentin (Neurontin) 300 mg Q8HR PO Last administered on 06/18/17 05:59; Start 06/16/17 at 14:00 Hydrochlorothiazide (Microzide) 12.5 mg DAILY PO Last administered on 09:20; Start 06/14/17 at 09:00 Hydromorphone HCl (Dilaudid Pf Inj) 1 mg Q4HR PRN IV PUSH breakthrough pain Last administered on 06/18/17 09:21; Start 06/17/17 at 10:30 Insulin Human Regular (NovoLIN R INJ) See Protocol Table ... MACHINE OPERATOR HOP WORKER PRN SQ SEE PROTOCOL TABLE; Start 06/13/17 at 07:00; Stop 06/16/17 at 06:59; Status DC Lactated Ringer's 1,000 ml @ 30 mls/hr Q24H PRN IV SEE LABEL COMMENTS Last administered on 06/13/17 06:55; Start 06/13/17 at 07:00; Stop 06/16/17 at 06: 59; Status DC Lactulose (Lactulose Liq) 30 ml DAILY PO Last administered on 06/17/17 08:46 ; Start 06/14/17 at 09:00 Magnesium Hydroxide (Milk Of Magnesia Liq) 30 ml DAILY PRN PO Mild-moderate constipation Last administered on 06/16/17 08:12; Start 06/13/17 at 13:00 Magnesium Sulfate 2 gm/Sodium Chloride 104 ml @ 100 mls/hr UNSCH PRN IV MAGNESIUM LESS THAN 2; Start 06/13/17 at 13:00 Menthol (Barnum Rober) 1 lozenge UNSCH PRN BUCCAL SORE THROAT; Start 06/13/17 at 13:00 Metoprolol Tartrate (Lopressor) 25 mg MACHINE OPERATOR HOP WORKER PRN PO SEE LABEL COMMENTS; Start 06/13/17 at 07:00; Stop 06/16/17 at 06:59; Status DC Miscellaneous Information ALL NURSING DEPARTME... UNSCH PRN .XX SEE LABEL COMMENTS; Start 06/13/17 at 14:30; Stop 06/14/17 at 14:29; Status DC Morphine Sulfate (Morphine 1 Mg/ ml DIAMOND DRILLER) 30 mg UNSCH IV Last administered on 10:45; Start 06/13/17 at 13:00; Stop 06/15/17 at 14:16; Status DC Naloxone HCl (Narcan Inj) 0.4 mg UNSCH PRN IV PUSH RESPIRATORY RATE LESS THAN 10; Start 06/13/17 at 13:00; Stop 06/13/17 at 14:10; Status DC Non-Formulary Medication 37.5 mg DAILY PO ; Start 06/14/17 at 09:00; Stop at 09:00; Status DC Ondansetron HCl (Zofran Inj) 4 mg Q6H PRN IV PUSH NAUSEA OR VOMITING Last administered on 06/17/17 12:31; Start 06/13/17 at 13:00 Pantoprazole Sodium (Protonix) 40 mg DAILY PO Last administered on 06/18/17 09:20; Start 06/14/17 at 09:00 Patient Own Medication PT OWN MED: (Buprenorphine Patch 168... Q7D TOPICAL ; Start 06/13/17 at 14:15; Status Future Hold DIAMOND DRILLER Dosage Infused (Pha) 1 Q8HR .XX Last administered on 06/15/17 10:41; Start 06/13/17 at 14:00; Stop 06/15/17 at 14:16; Status DC Potassium Chloride/Sodium Chloride 1,000 ml @ 80 mls/hr [id number] IV Last administered on 06/15/17 11:36; Start 06/13/17 at 12:53 Potassium Chloride 100 ml @ 50 mls/hr UNSCH PRN IV POTASSIUM LESS THAN 4; Start 06/13/17 at 13:00 Povidone Iodine (Betadine 5% Antisepsis Kit) 1 applic MACHINE OPERATOR HOP WORKER PRN EACH NARE SEE LABEL COMMENTS Last administered on 06/13/17 07:33; Start 06/13/17 at 07:00 ; Stop 06/16/17 at 06:59; Status DC Promethazine HCl (Phenergan Inj) 25 mg Q4H PRN IM NAUSEA OR VOMITING; Start at 13:00 Sodium Chloride (NS Flush) 2 ml BID IV FLUSH Last administered on 06/18/17 09 :21; Start 06/13/17 at 21:00 Spironolactone (Aldactone) 25 mg DAILY PO Last administered on 06/18/17 09:21 ; Start 06/14/17 at 09:00 Tamsulosin HCl (Flomax) 0.4 mg DAILY PO Last administered on 06/18/17 09:20; Start 06/14/17 at 09:00 Vancomycin HCl 1000 mg/Sodium Chloride 250 ml @ 250 mls/hr MACHINE OPERATOR HOP WORKER IV ; Start 06/13/17 at 07:00; Stop 06/16/17 at 13:00; Status DC A/P Assessment and Plan A/P - chronic low back pain- s/p L3-4 Laminectomy- continue pain control with norco- started on IV Dilauduid for breakthrough pain- neurosurgery following. -hypertension; on HCTZ- will monitor and adjust the regimen as needed. -urinary retention; had straight cath earlier- continue Flomax- bladder scan this evening if doesn't void. check UA. -DVT prophylaxis; SCD's- per neurosurgery. Discharge Planning when cleared by neurosurgery . Avila Lam MD Jun 18, 2017 13:21
[2017-06-18 14:54] LABS: BLOOD, URINE TRACE (NEG); COMMENT (UR) CATH-CULT NOT IND; CULTURE IF INDICATED CATH CULTURE NOT IND; GLUCOSE,URINE NEG (NEG); KETONE, URINE NEG (NEG); MUCUS URINE FEW /lpf (OCC); NITRITE,URINE NEG (NEG); URINE COLOR YELLOW (YELLW/STRAW)
[2017-06-18] MEDS: DOXEPIN HCL 25 MG CAP PO PRN (23:10)
--- NOTE | 2017-06-18 23:55 | HHI.NSPN ---
History Chief Complaint: left lower extremity pain Interval History Patient postop day #5 status post L4 5 TLIF System Review Comments Persistent severe pain left lateral buttock and hip radiating to the anterior left thigh with any weightbearing or leg extension. Positive urinary hesitancy without incontinence. Denies any perineal numbness or any weakness or numbness in the lower extremities. No lower extremity spasm. Exam Results Vital Signs Date Time Temp Pulse Resp B/P (MAP) Pulse Ox O2 Delivery O2 Flow Rate FiO2 06/18/17 23:38 96.9 77 17 118/72 (87) 93 06/16/17 08:13 Room Air 06/15/17 16:00 21 Intake and Output 06/18/17 06/18/17 06/19/17 08:00 16:00 00:00 Intake Total 720 ml 240 ml Output Total 450 ml 1500 ml Balance -450 ml -780 ml 240 ml Physical Examination Patient is alert and oriented 3. He appears to be moderately uncomfortable with complaints of radicular pain with minimal left lower extremity extension Speech is clear, appropriate. Follows commands well. Motor strength testing 5/5 bilateral iliopsoas, quads, hamstrings, plantarflexion, dorsiflexion, EHL Sensation grossly intact to light touch throughout the lower extremities No ankle clonus plantars flexors b/l Dressing dry. No wound problems per nursing staff Lab, Micro, Other Results 06/17/17 CT scan lumbar spine images reviewed by the undersigned. There appears to be at least moderate epidural fluid collection-probable hematoma along the primarily left dorsolateral L4 5 thecal sac. Instrumentation and interbody cage in good position Lumbar Spine CT 06/17/17 0000 Signed Impressions: Service Date/Time: Saturday, June 17, 2017 19:09 - CONCLUSION: 1. Compared with June 06 there is now left sided transpedicular screw eric fixation across L3-4 with locules of air, high density fluid material and some increased soft tissue around the surgical site resulting in at least moderate to severe effacement of the thecal sac at this level. Remainder of the levels are similar to June 06. Fawad Barrett MD Medical Decision Making Impression and Plan Impression: 1. Persistent left primarily L4 distribution pain following L4-5 laminectomy and interbody fusion. Probable epidural hematoma. Although he has urinary hesitancy. There is no incontinence and no perineal numbness or lower extremity sensorimotor deficit to indicate cauda equina syndrome. Recommendations: Findings were discussed at length with the patient. Option of further observation and conservative treatment versus surgical exploration with possible epidural hematoma evacuation fully discussed along with pros and cons of each. He states that he would like to avoid further surgery or possible. I advised him that although there is no definite indication of cauda equina syndrome at this time, I cannot fully rule out potential neurogenic bladder related epidural hematoma. It appears more likely based on his symptoms and examination that he is having difficulty voiding due to prolonged bedrest, pain , and narcotic medications. We will begin a course of IV steroids to see if this will help inflammation. He will continue physical therapy. Troy Goins MD Jun 18, 2017 23:55
[2017-06-19] MEDS: DEXAMETHASONE SOD PHOS 4 MG/ML VIAL IV PUSH SCH ×5 (00:19→23:06)
[2017-06-19 04:05] VITALS: BP 136/77; PULSE 83; RESP 18; TEMP 96.8; O2SAT 92
[2017-06-19] MEDS: ACETAMINOPHEN/HYDROcodone 325 MG/10 MG TAB PO PRN ×4 (04:36→23:06)
[2017-06-19] MEDS: GABAPENTIN 300 MG CAP PO SCH ×3 (06:09→21:28)
[2017-06-19] MEDS: NS + KCL 20 MEQ INJ 1,000 ML IV SCH ×2 (06:23→18:53)
[2017-06-19] MEDS: SODIUM CHLOR 0.9% 1000 ML INJ 1,000 ML IV SCH (07:00)
[2017-06-19 08:00] VITALS: BP 116/71; PULSE 71; RESP 18; TEMP 96.7; O2SAT 95
[2017-06-19] MEDS: HYDROCHLOROTHIAZIDE 12.5 MG CAP PO SCH (09:00)
[2017-06-19] MEDS: SODIUM CHLORIDE 0.9% FLUSH 10 ML FLUSH IV FLUSH SCH ×2 (09:00→21:28)
[2017-06-19] MEDS: TAMSULOSIN HCL 0.4 MG CAP PO SCH (09:15)
[2017-06-19] MEDS: SPIRONOLACTONE 25 MG TAB PO SCH (09:15)
[2017-06-19] MEDS: FUROSEMIDE 20 MG TAB PO SCH ×2 (09:15→21:28)
[2017-06-19] MEDS: DULoxetine HCl DR 30 MG CAP PO SCH (09:16)
[2017-06-19] MEDS: LACTULOSE SYRUP 20 GM/30 ML CUP PO SCH (09:16)
[2017-06-19] MEDS: DOCUSATE SODIUM 100 MG CAP PO SCH ×2 (09:16→21:28)
[2017-06-19] MEDS: PANTOPRAZOLE SOD 40 MG DELAYED RELEASE TAB PO SCH (09:16)
[2017-06-19] MEDS: ENOXAPARIN SODIUM 40 MG/0.4 ML SYRINGE SQ SCH (09:17)
[2017-06-19 09:38] LABS: AUTOMATED NEUTROPHIL # 6.8 TH/MM3 (1.8-7.7); BASOPHIL % 0.2 % (0.0-2.0); EOSINOPHIL % 0.1 % (0.0-4.0); HEMATOCRIT 43.3 % (39.0-51.0); HEMO FLAGS DIFF FINAL; LYMPH % 9.7 % (9.0-44.0); LYMPHOCYTE # 0.8 TH/MM3 (1.0-4.8); MEAN CELL VOLUME 89.4 FL (80.0-100.0); MEAN CORPUSCULAR HGB CONC 34.7 % (32.0-36.0); MONO % 3.5 % (0.0-8.0); NEUT % 86.5 % (16.0-70.0); PLATELET COUNT 300 TH/MM3 (150-450); RED BLOOD COUNT 4.85 MIL/MM3 (4.50-5.90); WHITE BLOOD COUNT 7.9 TH/MM3 (4.0-11.0)
[2017-06-19 09:41] LABS: INTERNATIONAL NORMALIZED RATIO 1.1 RATIO
[2017-06-19 10:01] LABS: BICARBONATE 26.6 MEQ/L (21.0-32.0)
[2017-06-19 10:02] LABS: POTASSIUM 4.4 MEQ/L (3.5-5.1)
--- NOTE | 2017-06-19 11:44 | HHI.PR ---
Subjective Remarks in no acute distress. looks much more comfortable. back pain is much better. numbness of the left leg has much improved. Objective Vitals Vital Signs Date Time Temp Pulse Resp B/P (MAP) Pulse Ox O2 Delivery O2 Flow Rate FiO2 06/19/17 08:00 96.7 71 18 116/71 (86) 95 06/19/17 04:05 96.8 83 18 136/77 (96) 92 06/18/17 23:38 96.9 77 17 118/72 (87) 93 06/18/17 19:50 96.7 92 17 134/77 (96) 92 06/18/17 16:00 97.0 90 18 132/71 (91) 95 06/18/17 13:38 18 06/18/17 12:00 97.0 90 18 138/81 (100) 94 I/O 06/18/17 06/18/17 06/18/17 06/19/17 06/19/17 06/19/17 07:00 15:00 23:00 07:00 15:00 23:00 Intake Total 720 ml 240 ml 240 ml Output Total 450 ml 1500 ml 125 ml Balance -450 ml -780 ml 240 ml 115 ml Intake Oral 720 ml 240 ml 240 ml Output Urine Total 450 ml 1500 ml 125 ml Bladder Scan Volume Amount 923 ml 400 ml # Voids 0 # Bowel Movements 0 0 Result Diagram: 06/19/1720 06/19/17 0820 Imaging Last Impressions Lumbar Spine CT 06/17/17 0000 Signed Impressions: Service Date/Time: Saturday, June 17, 2017 19:09 - CONCLUSION: 1. Compared with June 06 there is now left sided transpedicular screw eric fixation across L3-4 with locules of air, high density fluid material and some increased soft tissue around the surgical site resulting in at least moderate to severe effacement of the thecal sac at this level. Remainder of the levels are similar to June 06. Fawad Barrett MD Lumbar Spine X-Ray 06/16/17 0000 Signed Impressions: Service Date/Time: Friday, June 16, 2017 13:20 - CONCLUSION: 1. Surgical and degenerative changes as above. 2. No acute abnormalities are demonstrated. Cipriano Matthews MD Objective Remarks GENERAL: in no respiratory distress but uncomfortable with the back pain. CARDIOVASCULAR: Regular rate and regular rhythm without murmurs, gallops, or rubs. RESPIRATORY: Clear to auscultation. Breath sounds equal bilaterally. No wheezes , rales, or rhonchi. GASTROINTESTINAL: Abdomen soft, non-tender, nondistended. Normal, active bowel sounds MUSCULOSKELETAL: Extremities without clubbing, cyanosis, or edema. NEURO: Alert & Oriented x4 to person, place, time, situation. Moves all ext x4 Medications and IVs Inpatient Medications Acetaminophen (Tylenol) 650 mg Q4H PRN PO TEMPERATURE > 101.5 F; Start at 13:00 Acetaminophen/ Hydrocodone Bitart ([place]ol 10-325 Mg) 2 tab Q4H PRN PO PAIN SCALE 6 TO 10 Last administered on 06/19/17 11:39; Start 06/13/17 at 13:00 Al Hydrox/Mg Hydrox/Simethicone (Mag-Al Plus Susp Liq) 30 ml Q6H PRN PO DYSPEPSIA; Start 06/13/17 at 13:00 Albuterol Sulfate (Albuterol Neb) 2.5 mg Q4HR NEB PRN NEB WHEEZING; Start 06/13 at 13:00 Calcium Gluconate 1 gm/Sodium Chloride 110 ml @ 110 mls/hr UNSCH PRN IV SEE LABEL COMMENTS; Start 06/13/17 at 13:00 Cefazolin Sodium 1000 mg/Sodium Chloride 100 ml @ 200 mls/hr Q8H IV Last administered on 06/14/17 05:52; Start 06/13/17 at 15:00; Stop 06/14/17 at 07:29 ; Status DC Chlorhexidine Gluconate (Chlorhexidine 2% Cloth) 3 pack FOREST RANGER PRN TOPICAL SEE LABEL COMMENTS Last administered on 06/13/17 06:45; Start 06/13/17 at 07:00 ; Stop 06/16/17 at 06:59; Status DC Clonidine (Catapres) 0.1 mg Q6H PRN PO SYS BP GREATER THAN 170 MMHG; Start 06/13/17 at 13:00 Cyclobenzaprine HCl (Flexeril) 10 mg TID PO Last administered on 06/15/17 11: 34; Start 06/13/17 at 13:00; Stop 06/15/17 at 14:14; Status DC Dexamethasone Sodium Phosphate (Decadron Inj) 4 mg Q6HR IV PUSH Last administered on 06/19/17 11:39; Start 06/19/17 at 00:00 Diazepam (Valium) 5 mg Q6H PRN PO MUSCLE SPASM Last administered on 06/17/17 06:12; Start 06/15/17 at 14:30 Diphenhydramine HCl (Benadryl Inj) 25 mg Q6H PRN IV PUSH ITCHING; Start at 13:00; Stop 06/15/17 at 14:16; Status DC Diphenhydramine HCl (Benadryl) 25 mg Q6H PRN PO ITCHING; Start 06/13/17 at 13: 00; Stop 06/15/17 at 14:16; Status DC Docusate Sodium (Colace) 100 mg BID PO Last administered on 06/19/17 09:16; Start 06/13/17 at 21:00 Doxepin HCl (SINEquan) 50 mg HS PRN PO INSOMNIA Last administered on 23:10; Start 06/13/17 at 13:00 Duloxetine HCl (Cymbalta Dr) 30 mg DAILY PO Last administered on 06/19/17 09: 16; Start 06/14/17 at 09:00 Enoxaparin Sodium (Lovenox Inj) 40 mg DAILY SQ Last administered on 06/19/17 09:17; Start 06/16/17 at 14:00 Furosemide (Lasix) 20 mg BID PO Last administered on 06/19/17 09:15; Start 06/13/17 at 21:00 Gabapentin (Neurontin) 300 mg Q8HR PO Last administered on 06/19/17 06:09; Start 06/16/17 at 14:00 Hydrochlorothiazide (Microzide) 12.5 mg DAILY PO Last administered on 09:20; Start 06/14/17 at 09:00 Hydromorphone HCl (Dilaudid Pf Inj) 1 mg Q4HR PRN IV PUSH breakthrough pain Last administered on 06/18/17 09:21; Start 06/17/17 at 10:30 Insulin Human Regular (NovoLIN R INJ) See Protocol Table ... FOREST RANGER PRN SQ SEE PROTOCOL TABLE; Start 06/13/17 at 07:00; Stop 06/16/17 at 06:59; Status DC Lactated Ringer's 1,000 ml @ 30 mls/hr Q24H PRN IV SEE LABEL COMMENTS Last administered on 06/13/17 06:55; Start 06/13/17 at 07:00; Stop 06/16/17 at 06: 59; Status DC Lactulose (Lactulose Liq) 30 ml DAILY PO Last administered on 06/19/17 09:16 ; Start 06/14/17 at 09:00 Magnesium Hydroxide (Milk Of Magnesia Liq) 30 ml DAILY PRN PO Mild-moderate constipation Last administered on 06/16/17 08:12; Start 06/13/17 at 13:00 Magnesium Sulfate 2 gm/Sodium Chloride 104 ml @ 100 mls/hr UNSCH PRN IV MAGNESIUM LESS THAN 2; Start 06/13/17 at 13:00 Menthol ([place] Rober) 1 lozenge UNSCH PRN BUCCAL SORE THROAT; Start 06/13/17 at 13:00 Metoprolol Tartrate (Lopressor) 25 mg FOREST RANGER PRN PO SEE LABEL COMMENTS; Start 06/13/17 at 07:00; Stop 06/16/17 at 06:59; Status DC Miscellaneous Information ALL NURSING DEPARTME... UNSCH PRN .XX SEE LABEL COMMENTS; Start 06/13/17 at 14:30; Stop 06/14/17 at 14:29; Status DC Morphine Sulfate (Morphine 1 Mg/ ml CLINICAL LEADER) 30 mg UNSCH IV Last administered on 10:45; Start 06/13/17 at 13:00; Stop 06/15/17 at 14:16; Status DC Naloxone HCl (Narcan Inj) 0.4 mg UNSCH PRN IV PUSH RESPIRATORY RATE LESS THAN 10; Start 06/13/17 at 13:00; Stop 06/13/17 at 14:10; Status DC Non-Formulary Medication 37.5 mg DAILY PO ; Start 06/14/17 at 09:00; Stop at 09:00; Status DC Ondansetron HCl (Zofran Inj) 4 mg Q6H PRN IV PUSH NAUSEA OR VOMITING Last administered on 06/17/17 12:31; Start 06/13/17 at 13:00 Pantoprazole Sodium (Protonix) 40 mg DAILY PO Last administered on 06/19/17 09:16; Start 06/14/17 at 09:00 Patient Own Medication PT OWN MED: (Buprenorphine Patch 168... Q7D TOPICAL ; Start 06/13/17 at 14:15; Status Future Hold CLINICAL LEADER Dosage Infused (Pha) 1 Q8HR .XX Last administered on 06/15/17 10:41; Start 06/13/17 at 14:00; Stop 06/15/17 at 14:16; Status DC Potassium Chloride/Sodium Chloride 1,000 ml @ 80 mls/hr [id number] IV Last administered on 06/15/17 11:36; Start 06/13/17 at 12:53 Potassium Chloride 100 ml @ 50 mls/hr UNSCH PRN IV POTASSIUM LESS THAN 4; Start 06/13/17 at 13:00 Povidone Iodine (Betadine 5% Antisepsis Kit) 1 applic FOREST RANGER PRN EACH NARE SEE LABEL COMMENTS Last administered on 06/13/17 07:33; Start 06/13/17 at 07:00 ; Stop 06/16/17 at 06:59; Status DC Promethazine HCl (Phenergan Inj) 25 mg Q4H PRN IM NAUSEA OR VOMITING; Start at 13:00 Sodium Chloride (NS Flush) 2 ml BID IV FLUSH Last administered on 06/19/17 09 :00; Start 06/13/17 at 21:00 Spironolactone (Aldactone) 25 mg DAILY PO Last administered on 06/19/17 09:15 ; Start 06/14/17 at 09:00 Tamsulosin HCl (Flomax) 0.4 mg DAILY PO Last administered on 06/19/17 09:15; Start 06/14/17 at 09:00 Vancomycin HCl 1000 mg/Sodium Chloride 250 ml @ 250 mls/hr FOREST RANGER IV ; Start 06/13/17 at 07:00; Stop 06/16/17 at 13:00; Status DC A/P Assessment and Plan A/P - chronic low back pain- s/p L3-4 Laminectomy- with probable post-op epidural hematoma started on IV steroids- continue pain control and rehab efforts- management per neurosurgery. -hypertension; on HCTZ- will monitor and adjust the regimen as needed. -urinary retention; - continue Flomax- -DVT prophylaxis; SCD's- per neurosurgery. Discharge Planning when cleared by neurosurgery . Avila Lam MD Jun 19, 2017 11:44
[2017-06-19 12:00] VITALS: BP 148/67; PULSE 99; RESP 18; TEMP 96.4; O2SAT 94
--- NOTE | 2017-06-19 14:28 | HHI.NSPN ---
Note Status Status: Progress Note Interval History Interval History 06/14 Patient complains of back pain. Able to walk. +flatus 06/15 patient endorses severe back spasm that began last night. He is unable to find a comfortable position. 06/16 Patient complains of severe / back pain with radiation to left upper thigh. The pain feels like sharp pins and needles 06/17: persistent severe left thigh pain following L4 distribution reports pain is debilitating. xrays yesterday unremarkable 06/19: reports pain is 100% better this morning. ambulated with PT. rutherford catheter in place, on IV steroid. f/u CT L spine showed moderate epidural fluid collection-probable hematoma along the primarily left dorsolateral L4 5 thecal sac, Dr. Goins dw with patient last night regarding surgical vs nonsurgical tx. patient continues to request nonoperative treatment as he is feeling much better today. Labs, Micro, & Vital Signs Results Date Time Temp Pulse Resp B/P (MAP) Pulse Ox O2 Delivery O2 Flow Rate FiO2 06/19/17 12:00 96.4 99 18 148/67 (94) 94 06/19/17 08:00 96.7 71 18 116/71 (86) 95 06/19/17 04:05 96.8 83 18 136/77 (96) 92 06/18/17 23:38 96.9 77 17 118/72 (87) 93 06/18/17 19:50 96.7 92 17 134/77 (96) 92 06/18/17 16:00 97.0 90 18 132/71 (91) 95 Constitutional Vital Signs Date Time Temp Pulse Resp B/P (MAP) Pulse Ox O2 Delivery O2 Flow Rate FiO2 06/19/17 12:00 96.4 99 18 148/67 (94) 94 06/19/17 08:00 96.7 71 18 116/71 (86) 95 06/19/17 04:05 96.8 83 18 136/77 (96) 92 06/18/17 23:38 96.9 77 17 118/72 (87) 93 06/18/17 19:50 96.7 92 17 134/77 (96) 92 06/18/17 16:00 97.0 90 18 132/71 (91) 95 Physical Exam Patient is alert and oriented 3. Appears more comfortable sitting up in chair with LSO brace Speech is clear, appropriate. Follows commands well. Motor strength testing 5/5 bilateral iliopsoas, quads, hamstrings, plantarflexion, dorsiflexion, EHL Sensation grossly intact to light touch throughout the lower extremities No ankle clonus plantars flexors b/l Medications Current Medications Current Medications Medications (Trade) Dose Ordered Sig/Nomi Route PRN Reason Start Time Stop Time Status Last Admin Dose Admin Sodium Chloride 1,000 ml @ 30 mls/hr Q24H IV 06/13/17 07:00 Doxepin HCl (SINEquan) 50 mg HS PRN PO INSOMNIA 06/13/17 13:00 06/18/17 23:10 Furosemide (Lasix) 20 mg BID PO 06/13/17 21:00 06/19/17 09:15 Spironolactone (Aldactone) 25 mg DAILY PO 06/14/17 09:00 06/19/17 09:15 Tamsulosin HCl (Flomax) 0.4 mg DAILY PO 06/14/17 09:00 06/19/17 09:15 Patient Own Medication PT OWN MED: (Buprenorphine Patch 168... Q7D TOPICAL 06/13/17 14:15 Future Hold Pantoprazole Sodium (Protonix) 40 mg DAILY PO 06/14/17 09:00 06/19/17 09:16 Potassium Chloride/Sodium Chloride 1,000 ml @ 80 mls/hr [id number] IV 06/13/17 12:53 06/15/17 11:36 Sodium Chloride (NS Flush) 2 ml UNSCH PRN IV FLUSH FLUSH AFTER USING IV ACCESS 06/13/17 13:00 Sodium Chloride (NS Flush) 2 ml BID IV FLUSH 06/13/17 21:00 06/19/17 09:00 Docusate Sodium (Colace) 100 mg BID PO 06/13/17 21:00 06/19/17 09:16 Magnesium Hydroxide (Milk Of Magnesia Liq) 30 ml DAILY PRN PO Mild-moderate constipation 06/13/17 13:00 06/16/17 08:12 Al Hydrox/Mg Hydrox/Simethicone (Mag-Al Plus Susp Liq) 30 ml Q6H PRN PO DYSPEPSIA 06/13/17 13:00 Ondansetron HCl (Zofran Inj) 4 mg Q6H PRN IV PUSH NAUSEA OR VOMITING 06/13/17 13:00 06/17/17 12:31 Promethazine HCl (Phenergan Inj) 25 mg Q4H PRN IM NAUSEA OR VOMITING 06/13/17 13:00 Calcium Gluconate 1 gm/Sodium Chloride 110 ml @ 110 mls/hr UNSCH PRN IV SEE LABEL COMMENTS 06/13/17 13:00 Potassium Chloride 100 ml @ 50 mls/hr UNSCH PRN IV POTASSIUM LESS THAN 4 06/13/17 13:00 Magnesium Sulfate 2 gm/Sodium Chloride 104 ml @ 100 mls/hr UNSCH PRN IV MAGNESIUM LESS THAN 2 06/13/17 13:00 Acetaminophen/ Hydrocodone Bitart ([place] 10-325 Mg) 1 tab Q4H PRN PO PAIN SCALE 1 TO 5 06/13/17 13:00 06/14/17 10:05 Acetaminophen/ Hydrocodone Bitart ([place] 10-325 Mg) 2 tab Q4H PRN PO PAIN SCALE 6 TO 10 06/13/17 13:00 06/19/17 11:39 Clonidine (Catapres) 0.1 mg Q6H PRN PO SYS BP GREATER THAN 170 MMHG 06/13/17 13:00 Acetaminophen (Tylenol) 650 mg Q4H PRN PO TEMPERATURE > 101.5 F 06/13/17 13:00 Menthol ([place] Rober) 1 lozenge UNSCH PRN BUCCAL SORE THROAT 06/13/17 13:00 Albuterol Sulfate (Albuterol Neb) 2.5 mg Q4HR NEB PRN NEB WHEEZING 06/13/17 13:00 Lactulose (Lactulose Liq) 30 ml DAILY PO 06/14/17 09:00 06/19/17 09:16 Hydrochlorothiazide (Microzide) 12.5 mg DAILY PO 06/14/17 09:00 06/18/17 09:20 Duloxetine HCl (Cymbalta Dr) 30 mg DAILY PO 06/14/17 09:00 06/19/17 09:16 Diazepam (Valium) 5 mg Q6H PRN PO MUSCLE SPASM 06/15/17 14:30 06/17/17 06:12 Enoxaparin Sodium (Lovenox Inj) 40 mg DAILY SQ 06/16/17 14:00 06/19/17 09:17 Gabapentin (Neurontin) 300 mg Q8HR PO 06/16/17 14:00 06/19/17 06:09 Hydromorphone HCl (Dilaudid Pf Inj) 1 mg Q4HR PRN IV PUSH breakthrough pain 06/17/17 10:30 06/18/17 09:21 Dexamethasone Sodium Phosphate (Decadron Inj) 4 mg Q6HR IV PUSH 06/19/17 00:00 06/19/17 11:39 Medical Decision Making MDM Remarks POD 6 s/p L3-L4 TLIF, surgical pain controlled, intact motor function but with persistent severe radicular pain, this has now resolved f/u CT Lumbar spine shows moderate epidural fluid collection-probable hematoma along the primarily left dorsolateral L4 5 thecal sac Plan Plan Remarks dw patient again regarding surgical evacuation of epidural fluid collection, pt wants to continue nonsurgical mgt clinically much better today, cont IV steroids, protonix for stress ulcer prophylaxis cont rutherford catheter today PT, increase mobilization OOB anticipate dc to rehab tomorrow Fatmata Kaiser Jun 19, 2017 14:28
[2017-06-19 16:00] VITALS: BP 111/80; PULSE 93; RESP 18; TEMP 96.9; O2SAT 94
[2017-06-19 19:41] VITALS: BP 116/77; PULSE 81; RESP 17; TEMP 96.9; O2SAT 94
[2017-06-19] MEDS: DOXEPIN HCL 25 MG CAP PO PRN (23:06)
[2017-06-20] VITALS: BP 115/73; PULSE 76; RESP 20; TEMP 96.7; O2SAT 93
[2017-06-20 04:00] VITALS: BP 118/75; PULSE 70; RESP 20; TEMP 97.6; O2SAT 92
[2017-06-20] MEDS: GABAPENTIN 300 MG CAP PO SCH ×2 (06:28→13:04)
[2017-06-20] MEDS: DEXAMETHASONE SOD PHOS 4 MG/ML VIAL IV PUSH SCH ×2 (06:28→11:56)
[2017-06-20 08:00] VITALS: BP 111/66; PULSE 68; RESP 18; TEMP 97.2; O2SAT 94
[2017-06-20] MEDS: SPIRONOLACTONE 25 MG TAB PO SCH (08:44)
[2017-06-20] MEDS: DULoxetine HCl DR 30 MG CAP PO SCH (08:44)
[2017-06-20] MEDS: PANTOPRAZOLE SOD 40 MG DELAYED RELEASE TAB PO SCH (08:44)
[2017-06-20] MEDS: TAMSULOSIN HCL 0.4 MG CAP PO SCH (08:44)
[2017-06-20] MEDS: LACTULOSE SYRUP 20 GM/30 ML CUP PO SCH (08:44)
[2017-06-20] MEDS: FUROSEMIDE 20 MG TAB PO SCH (08:44)
[2017-06-20] MEDS: DOCUSATE SODIUM 100 MG CAP PO SCH (08:45)
[2017-06-20] MEDS: ENOXAPARIN SODIUM 40 MG/0.4 ML SYRINGE SQ SCH (08:45)
[2017-06-20] MEDS: ACETAMINOPHEN/HYDROcodone 325 MG/10 MG TAB PO PRN ×2 (08:46→13:18)
[2017-06-20] MEDS: HYDROCHLOROTHIAZIDE 12.5 MG CAP PO SCH (08:47)
[2017-06-20] MEDS: SODIUM CHLORIDE 0.9% FLUSH 10 ML FLUSH IV FLUSH SCH (08:47)
[2017-06-20 12:00] VITALS: BP 125/86; PULSE 73; RESP 17; TEMP 97.2; O2SAT 94
--- NOTE | 2017-06-20 12:23 | HHI.NSPN ---
History Chief Complaint: Slight aching to the lower back. Interval History 06/13: 06/14 Patient complains of back pain. Able to walk. +flatus 06/15 patient endorses severe back spasm that began last night. He is unable to find a comfortable position. 06/16 Patient complains of severe 04/16 back pain with radiation to left upper thigh. The pain feels like sharp pins and needles 06/17: persistent severe left thigh pain following L4 distribution reports pain is debilitating. xrays yesterday unremarkable 06/18: Persistent severe pain left lateral buttock and hip radiating to the anterior left thigh with any weightbearing or leg extension. Positive urinary hesitancy without incontinence. Denies any perineal numbness or any weakness or numbness in the lower extremities. No lower extremity spasm. 06/19: reports pain is 100% better this morning. ambulated with PT. rutherford catheter in place, on IV steroid. f/u CT L spine showed moderate epidural fluid collection-probable hematoma along the primarily left dorsolateral L4 5 thecal sac, Dr. Goins dw with patient last night regarding surgical vs nonsurgical tx. patient continues to request nonoperative treatment as he is feeling much better today. 06/20: The patient states that he is doing much better today. He is sitting up in the chair with the LSO brace on. He says that he has some slight aching to the back. He denies any pain, numbness, tingling or weakness to the lower extremities. Nursing states that the patient is to be transferred to [facility] today with the Rutherford catheter in place. Exam Results 06/18/17 06/18/17 06/19/17 06/19/17 06/20/17 06/20/17 06:00 18:00 06:00 18:00 06:00 18:00 Intake Total 480 ml 720 ml 240 ml 960 ml 360 ml 340 ml Output Total 600 ml 1950 ml 575 ml 375 ml 725 ml Balance -120 ml -1230 ml 240 ml 385 ml -15 ml -385 ml Intake Oral 480 ml 720 ml 240 ml 960 ml 360 ml 340 ml Output Urine Total 600 ml 1950 ml 575 ml 375 ml 725 ml Bladder Scan Volume Amount 923 ml 400 ml # Voids 0 # Bowel Movements 0 0 0 1 0 0 Vital Signs Date Time Temp Pulse Resp B/P (MAP) Pulse Ox O2 Delivery O2 Flow Rate FiO2 06/20/17 08:00 97.2 68 18 111/66 (81) 94 06/20/17 04:00 97.6 70 20 118/75 (89) 92 06/20/17 00:00 96.7 76 20 115/73 (87) 93 06/19/17 19:41 96.9 81 17 116/77 (90) 94 06/19/17 16:00 96.9 93 18 111/80 (90) 94 06/19/17 12:00 96.4 99 18 148/67 (94) 94 06/19/17 08:00 96.7 71 18 116/71 (86) 95 06/19/17 04:05 96.8 83 18 136/77 (96) 92 06/18/17 23:38 96.9 77 17 118/72 (87) 93 06/18/17 19:50 96.7 92 17 134/77 (96) 92 06/18/17 16:00 97.0 90 18 132/71 (91) 95 06/18/17 13:38 18 06/18/17 12:00 97.0 90 18 138/81 (100) 94 06/18/17 09:51 18 06/18/17 08:00 96.5 72 18 130/84 (99) 92 06/18/17 04:00 97.2 71 18 124/80 (95) 94 06/18/17 00:30 97.0 75 18 136/88 (104) 93 06/17/17 20:00 98.3 86 15 152/81 (104) 95 06/17/17 16:00 97.0 90 18 124/84 (97) 94 Physical Examination GENERAL: Awake & alert, readily interacts, affect normal, no apparent distress. MUSCULOSKELETAL: LAIRD w/o difficulty, NTTP. In LSO brace, minimally TTP to midline and incision. NEUROLOGICAL: AAOx3. Speech clear & appropriate. Follows commands w/o difficulty. Sensation intact to light touch to both lower extremities. Motor strength is 5/5 to all major flexion & extension muscle groups of the lower extremities. Lab, Micro, Other Results Laboratory Tests Test 06/18/17 13:40 06/19/17 08:20 Urine Color YELLOW Urine Turbidity CLEAR Urine pH 6.0 Urine Specific [place] 1.010 Urine Protein NEG mg/dL Urine Glucose (UA) NEG mg/dL Urine Ketones NEG mg/dL Urine Occult Blood TRACE Urine Nitrite NEG Urine Bilirubin NEG Urine Urobilinogen LESS THAN 2.0 MG/DL Urine Leukocyte Esterase NEG Urine RBC 2 /hpf Urine WBC LESS THAN 1 /hpf Urine Mucus FEW /lpf Microscopic Urinalysis Comment CATH-CULT NOT IND White Blood Count 7.9 TH/MM3 Red Blood Count 4.85 MIL/MM3 Hemoglobin 15.0 GM/DL Hematocrit 43.3 % Mean Corpuscular Volume 89.4 FL Mean Corpuscular Hemoglobin 31.0 PG Mean Corpuscular Hemoglobin Concent 34.7 % Red Cell Distribution Width 12.0 % Platelet Count 300 TH/MM3 Mean Platelet Volume 7.1 FL Neutrophils (%) (Auto) 86.5 % Lymphocytes (%) (Auto) 9.7 % Monocytes (%) (Auto) 3.5 % Eosinophils (%) (Auto) 0.1 % Basophils (%) (Auto) 0.2 % Neutrophils # (Auto) 6.8 TH/MM3 Lymphocytes # (Auto) 0.8 TH/MM3 Monocytes # (Auto) 0.3 TH/MM3 Eosinophils # (Auto) 0.0 TH/MM3 Basophils # (Auto) 0.0 TH/MM3 CBC Comment DIFF FINAL Differential Comment Prothrombin Time 11.0 SEC Prothromb Time International Ratio 1.1 RATIO Blood Urea Nitrogen 16 MG/DL Creatinine 0.95 MG/DL Random Glucose 124 MG/DL Calcium Level 9.0 MG/DL Sodium Level 132 MEQ/L Potassium Level 4.4 MEQ/L Chloride Level 98 MEQ/L Carbon Dioxide Level 26.6 MEQ/L Anion Gap 7 MEQ/L Estimat Glomerular Filtration Rate 80 ML/MIN Medical Decision Making Impression and Plan Impression: POD 6 s/p L3-L4 TLIF. Follow up CT lumbar spine shows moderate epidural fluid collection-probable hematoma along the primarily left dorsolateral L4 5 thecal sac. Surgical pain controlled. Intact motor function. Left-sided radicular pain resolved. Patient is doing well today with his pain well controlled to the back and none to the LLE. Plan: Discussed plan of care with patient. Discussed plan of care with Nursing. Continue nonsurgical management of probable epidural haematoma. Continue steroids. Continue stress ulcer prophylaxis. Continue Rutherford catheter. Mobilise patient w/assistance. PT cruzito & txTacho Luis for discharge to [facility] today. Melquiades Dubon Jun 20, 2017 12:23
[2017-06-22] MEDS ORDERED: GETGO ROLLING W1 MI1 (09:03)
[2017-06-22] MEDS ORDERED: NEXI40CA PO (09:21)
[2017-06-22] MEDS ORDERED: DULO1CAP2 PO (09:21)
[2017-06-22] MEDS ORDERED: ALFU10TA2 PO (09:21)
[2017-06-22] MEDS ORDERED: SPIR25TA PO (09:21)
[2017-06-22] MEDS ORDERED: FURO20TA PO (09:21)
[2017-06-22] MEDS ORDERED: TYLE325T PO (09:27)
[2017-06-22] MEDS ORDERED: NORC5TAB PO (09:27)
[2017-06-22] MEDS ORDERED: DEXA4TAB PO (10:58)
[2017-06-24] MEDS ORDERED: HYDR-3366 PO (11:15)
== END 2017-06-20 15:56 | DRG 460 ==
LOC: HSDI 06:10 → N06B 16:03
PROVIDERS: ADMIT Neurological Surgery; ATTEND Neurological Surgery
PROC: 0SB20ZZ Excision of Lumbar Vertebral Disc, Open Approach (ICD-10-PCS; 2017-06-13)
PROC: 0SP004Z Removal of Internal Fixation Device from Lumbar Vertebral Joint, Open Approach (ICD-10-PCS; 2017-06-13)
PROC: 0SG00AJ Fusion of Lumbar Vertebral Joint with Interbody Fusion Device, Posterior Approach, Anterior Column, Open Approach (ICD-10-PCS; principal; 2017-06-13 08:17)
PROC: 0T9B70Z Drainage of Bladder with Drainage Device, Via Natural or Artificial Opening (ICD-10-PCS; 2017-06-18)
DX: M43.16 Spondylolisthesis, lumbar region (principal); M41.86 Other forms of scoliosis, lumbar region; I10 Essential (primary) hypertension; G97.61 Postprocedural hematoma of a nervous system organ or structure following a nervous system procedure; M48.062 Spinal stenosis, lumbar region with neurogenic claudication; M51.16 Intervertebral disc disorders with radiculopathy, lumbar region; G89.29 Other chronic pain; R33.9 Retention of urine, unspecified; M62.830 Muscle spasm of back; R39.11 Hesitancy of micturition; Z98.1 Arthrodesis status; Z79.899 Other long term (current) drug therapy; Z87.891 Personal history of nicotine dependence; Y83.8 Other surgical procedures as the cause of abnormal reaction of the patient, or of later complication, without mention of misadventure at the time of the procedure
CPT/HCPCS: 36430; 72100; 72131; 76000; 80048; 81001; 82805; 83735; 85025; 85610; 86850; 86900; 86901; 86920; 94150; C1713; J0690; J1100; J1170; J1265; J1650; J2250; J2270; J2405; J3370; J3480; J7120; L0150; L0627; P9016

== ENCOUNTER 2017-06-23 00:37 | Emergency (ER) | payer MEDICARE, OTHER ==
[~2017-06-23] VITALS: Ht 172.7 cm; Wt 101.0 kg
[~2017-06-23 00:37] MED LIST changes: -CELE200C PO; -CYCL10TA PO; +DEXA4TAB PO; -DOXE25CA2 PO; +GETGO ROLLING W1 MI1; -IRBE150T17; +NORC5TAB PO; -PHEN37.54 PO; -WALKER WHEELS/F1 MIS
[2017-06-23 00:39] VITALS: BP 155/80; PULSE 69; RESP 18; TEMP 97.7; O2SAT 97
--- NOTE | 2017-06-23 01:56 | PD ---
HPI Chief Complaint: Complaint Time Seen by Provider: 01:12 Travel History International Travel<30 days: No Contact w/Intl Traveler<30days: No Traveled to known affect area: No History of Present Illness HPI The patient 66. He underwent L-spine surgery by Dr. about 2 weeks prior. Today he arrives with urinary frequency and pain in the pelvis. Dysuria is reported. Postoperatively he suffers with urinary retention. A Swain was placed and then removed. Subsequent straight catheterization twice obtained. He was discharged from [facility] yesterday following one overnight stay. Pelvic pain is crampy in nature. PFSH Past Medical History Arthritis: Yes Asthma: No Autoimmune Disease: No Blood Disorders: No Anxiety: Yes Depression: No Heart Rhythm Problems: Yes (Diastolic heart dysfunction) Cancer: Yes (Skin CA, family pmhx) Cardiovascular Problems: No High Cholesterol: No Chemotherapy: No Chest Pain: No Congestive Heart Failure: No COPD: No Cerebrovascular Accident: No Diabetes: No Diminished Hearing: No Endocrine: No Gastrointestinal Disorders: Yes (Hx peritoneal abscess, hernia repair) GERD: Yes (GERD) Glaucoma: No Genitourinary: Yes (Post surgery neurogenic bladder) Headaches: Yes Hepatitis: No Hiatal Hernia: No Hypertension: Yes Immune Disorder: No Inguinal Hernia: Yes Implanted Vascular Access Dvce: Yes Kidney Stones: No Medical other: Yes (GERD ; ARTHRITIS; HX FRANCO'S ESOPH; LOW BACK) Musculoskeletal: Yes (BACK) Neurologic: No Psychiatric: No Reproductive: No Respiratory: Yes (Hx of PE) Immunizations Current: No Migraines: No Myocardial Infarction: No Radiation Therapy: Yes (angioma one time) Renal Failure: No Seizures: No Sickle Cell Disease: No Sleep Apnea: Yes (Wears CPAP) Thyroid Disease: No Ulcer: No Past Surgical History Abdominal Surgery: Yes (Hernia repair x3, peritoneal abscess w/ repair) AICD: No Appendectomy: No Arteriovenous Shunt: No Body Medical Devices: NERVE STIMULATOR, BATTERY IN RIGHT BUTTOCK Cardiac Surgery: No Cholecystectomy: Yes (2007) Ear Surgery: No Endocrine Surgery: No Eye Surgery: No Genitourinary Surgery: No Gynecologic Surgery: No Insulin Pump: No Joint Replacement: Yes (R total knee) Neurologic Surgery: Yes (Cervical surgery) Oral Surgery: No Pacemaker: No Thoracic Surgery: No Other Surgery: Yes (RT KNEE,RT SHOULDER,LOW BACK) Social History Alcohol Use: Yes (OCCASIONAL GLASS OF WINE) Tobacco Use: No Substance Use: No Allergies-Medications (Allergen,Severity, Reaction): Coded Allergies: MRI PRECAUTION (Verified Allergy, Severe, PT HAS IMPLANTED NERVE STIMULATOR (MEDTRONIC), 06/23/17) hydromorphone (Verified Allergy, Severe, 06/23/17) stomach cramping meperidine (Verified Allergy, Unknown, 06/23/17) causes abd cramping in iv form prochlorperazine (Verified Adverse Reaction, Severe, AGITATION, 06/23/17) Reported Meds & Prescriptions Reported Meds & Active Scripts Active Cipro (Ciprofloxacin HCl) 500 Mg Tab 500 Mg PO BID 7 Days Dexamethasone 4 Mg Tab 4 Mg PO Q12HR Dexamethasone 4mg Q 12 hrs x 3 days Dexamethasone 4mg daily x 3 days [place] (Hydrocodone-Acetaminophen) 5 Mg-325 Mg Tab 1 Tab PO Q12HR PRN Tylenol (Acetaminophen) 325 Mg Tab 650 Mg PO Q6HR PRN Duloxetine DR (Duloxetine HCl) 30 Mg Capdr 30 Mg PO DAILY PRN Spironolactone 25 Mg Tab 25 Mg PO DAILY Furosemide 20 Mg Tab 20 Mg PO BID Alfuzosin ER 24 HR 10 Mg Tab 10 Mg PO DAILY Nexium (Esomeprazole DR) 40 Mg Capdr 40 Mg PO DAILY 30 Days Walker Rolling/GetGo (Device) 1 Mis Mis Ea .ROUTE DIRECTED [place] (Hydrocodone-Acetaminophen) 10-325 Mg Tab 1 Tab PO Q4H PRN [place] (Hydrocodone-Acetaminophen) 10-325 Mg Tab 1 Tab PO Q4H PRN Reported Butrans Patch 168 HR (Buprenorphine Patch 168 HR) 20 Mcg/Hr Patch 1 Patch T- DERMAL Q7D Review of Systems Except as stated in HPI: all other systems reviewed are Neg General / Constitutional: No: Fever Genitourinary: Positive: Frequency, Dysuria Physical Exam Narrative GENERAL: 66-year-old male well-nourished well-developed SKIN: Focused skin assessment warm/dry. HEAD: Atraumatic. Normocephalic. EYES: Pupils equal and round. No scleral icterus. No injection or drainage. ENT: No nasal bleeding or discharge. Mucous membranes pink and moist. NECK: Trachea midline. No JVD. CARDIOVASCULAR: Regular rate and rhythm. No murmur appreciated. RESPIRATORY: No accessory muscle use. Clear to auscultation. Breath sounds equal bilaterally. GASTROINTESTINAL: Minimal tenderness in the suprapubic abdomen. No flank tenderness. Soft. MUSCULOSKELETAL: No obvious deformities. No clubbing. No cyanosis. No edema. NEUROLOGICAL: Awake and alert. No obvious cranial nerve deficits. Motor grossly within normal limits. Normal speech. PSYCHIATRIC: Appropriate mood and affect; insight and judgment normal. Data Data Last Documented VS Vital Signs Date Time Temp Pulse Resp B/P (MAP) Pulse Ox O2 Delivery O2 Flow Rate FiO2 06/23/17 02:08 06/23/17 00:39 97.7 69 18 97 Room Air Vital signs reviewed Orders Orders Urinalysis - C+S If Indicated (06/23/17 01:12) Urine Culture (06/23/17 00:55) Ed Discharge Order (06/23/17 01:59) Ciprofloxacin (Cipro) (06/23/17 02:00) Labs Laboratory Tests Test 06/23/17 00:55 Urine Color LIGHT-YELLOW Urine Turbidity CLEAR Urine pH 6.0 Urine Specific [place] 1.014 Urine Protein NEG mg/dL Urine Glucose (UA) NEG mg/dL Urine Ketones NEG mg/dL Urine Occult Blood NEG Urine Nitrite NEG Urine Bilirubin NEG Urine Urobilinogen LESS THAN 2.0 MG/DL Urine Leukocyte Esterase LARGE Urine RBC 2 /hpf Urine WBC 53 /hpf Urine Bacteria MANY /hpf Urine Mucus FEW /lpf Microscopic Urinalysis Comment CULTURE INDICATED MDM Medical Decision Making Medical Screen Exam Complete: Yes Emergency Medical Condition: Yes Medical Record Reviewed: Yes Differential Diagnosis Urinary tract obstruction, prostatitis, UTI Narrative Course Urinalysis: UTI present The patient will go home with Cipro and return precautions were discussed. Diagnosis Primary Impression: UTI (urinary tract infection) Qualified Codes: N39.0 - Urinary tract infection, site not specified Referrals: Primary Care Physician 2 days Med/Other Pt SpecificInfo: Prescription(s) given Scripts Ciprofloxacin (Cipro) 500 Mg Tab 500 MG PO BID for Infection for 7 Days, #14 TAB 0 Refills Prov: Nikita Gregg MD 06/23/17 Disposition: 01 DISCHARGE HOME Condition: Stable Nikita Gregg MD Jun 23, 2017 01:56
[2017-06-23 01:57] LABS: BACTERIA, URINE MANY /hpf; BILIRUBIN, URINE NEG (NEG); BLOOD, URINE NEG (NEG); GLUCOSE,URINE NEG (NEG); KETONE, URINE NEG (NEG); MUCUS URINE FEW /lpf (OCC); NITRITE,URINE NEG (NEG); URINE COLOR LIGHT-YELLOW (YELLW/STRAW); URINE LEUKOCYTE ESTERASE LARGE (NEG)
[2017-06-23] MEDS ORDERED: CIPR-9 PO (02:00)
[2017-06-23] MEDS ORDERED: CIPROFLOXACIN 500 MG TAB PO ONE (02:00)
[2017-06-24] MEDS ORDERED: HYDR-3366 PO (11:15)
== END 2017-06-23 02:47 | disposition home or self-care (01) ==
LOC: NEPE 00:37
DX: N39.0 Urinary tract infection, site not specified (principal); M19.90 Unspecified osteoarthritis, unspecified site; F41.9 Anxiety disorder, unspecified; K21.9 Gastro-esophageal reflux disease without esophagitis; I10 Essential (primary) hypertension; Z86.711 Personal history of pulmonary embolism
CPT/HCPCS: 81001; 87077; 87086; 87186; 99283